=== PATIENT | female | born 1955 | race Caucasian/White ===

== ENCOUNTER 2016-07-09 17:55 | Inpatient (IN) | payer BC, OTHER ==
[~2016-07-09] VITALS: Ht 170.2 cm; Wt 105.8 kg
[~2016-07-09 17:55] MED LIST: ALBU1AER9 INH; ALPR-412 PO; CARV3.12 PO; FURO-85 PO; IPRASOL4 INH; LOSA25TA18 PO; MONT1TAB3 PO; NAPR500T3 PO; OMEP20TA PO; POTA-331 PO
[2016-07-09] MEDS ORDERED: METHYLPREDNISOLONE 125 MG VIAL IV STA (18:11)
[2016-07-09] MEDS ORDERED: ALBUT/IPRATROP 3MG/0.5MG NEB 3 ML VIAL INH ONE (18:15)
--- NOTE | 2016-07-09 18:18 | EMERGENCY ROOM VISIT NOTE ---
History Report prepared by Ketan: Yamilex Farrell Under the Supervision of: Dr. Anuel Gibson M.D. First contact with patient: 18:02 Chief Complaint: SHORTNESS OF BREATH Stated Complaint: TROUBLE BREATHING History of Present Illness The patient is a 61 year old female who presents to the Emergency Room with complaints of worsening shortness of breath with onset one week ago. She rates her discomfort as an 8/10. The patient notes that she has had some difficulty breathing for nearly two months. Since then, the patient has been undergoing treatment. She was recently diagnosed with asthma. Today, the patient took an albuterol treatment; she notes she has a nebulizer. The patient has had chills, a cough, pain and swelling in her legs. The patient also has chest pain, which she describes as "as if someone is sitting on me." She also has some intermittent pain between her shoulder blades. She denies fever, abdominal pain , a history of smoking. Source of History: patient, spouse/significant other Onset: one week ago Position: chest Symptom Intensity: 8/10 Quality: other (shortness of breath) Timing: worsening Associated Symptoms: + chest pain, + chills, + cough, No abdominal pain, No fevers Note: She has pain and swelling in her legs. She also has some intermittent pain between her shoulder blades. Review of Systems See HPI for pertinent positives & negatives. A total of 10 systems reviewed and were otherwise negative. Past Medical & Surgical Medical Problems: (1) Acute respiratory failure (2) Asthma (3) Asthma exacerbation (4) Benign hypertension (5) Bronchitis (6) Cardiomyopathy (7) Cardiomyopathy (8) CHF (congestive heart failure) (9) Community acquired pneumonia (10) Failure of outpatient treatment (11) Gastroesophageal reflux disease (12) Pneumonia (13) Respiratory failure (14) Systolic heart failure Old medical records were reviewed. Nurse's notes were reviewed and I agree with. Family History Cancer Heart disease Hypertension Lung disease Social History Smoking Status: Never Smoker Drug Use: none Marital Status: Housing Status: lives with family Occupation Status: employed Current/Historical Medications Scheduled Carvedilol (Coreg), 3.125 MG PO BID Furosemide (Lasix), 20 MG PO BID Ipratropium-Albuterol (Duoneb), 1 TREATMENT INH Q4H Losartan Potassium (Cozaar), 25 MG PO DAILY Montelukast Sodium (Singulair), 10 MG PO QPM Omeprazole (Omeprazole), 20 MG PO BID Sertraline HCl (Sertraline HCl), 50 MG PO QAM Scheduled PRN Albuterol (Proair Hfa), 2 PUFFS INH QID PRN for SOB/Wheezing Alprazolam (Alprazolam), 0.25 PO BID PRN for Anxiety Naproxen (Naproxen), 500 MG PO Q12 PRN for Pain Allergies Coded Allergies: Formoterol (Verified Allergy, Severe, tongue swells, 07/09/16) Mometasone (Verified Allergy, Severe, tongue swells, 07/09/16) Ketorolac (Unverified Allergy, Intermediate, ITCHING, 07/09/16) Latex1 -Allergic Contact Dermititis (Verified Allergy, Mild, Rash/redness , 07/09/16) Milk Protein Extract (Unverified Allergy, Unknown, unknown, 07/09/16) Physical Exam Vital Signs Date Time Temp Pulse Resp B/P Pulse Ox O2 Delivery O2 Flow Rate FiO2 07/09/16 20:55 91 21 91 07/09/16 20:25 93 26 92 07/09/16 19:55 84 19 91 07/09/16 19:47 85 16 144/94 92 Nasal Cannula 4.0 07/09/16 19:46 144/94 07/09/16 19:25 89 Room Air 07/09/16 19:25 91 20 92 07/09/16 19:11 91 Room Air 07/09/16 18:55 81 15 99 07/09/16 18:36 83 07/09/16 18:29 85 24 94 Nasal Cannula 3.0 07/09/16 17:56 37.3 89 22 187/118 91 Room Air Physical Exam General: Middle aged female, mildly tachypneic. HEENT: Normal cephalic atraumatic. Pupils are equal round and reactive to light. Extraocular movements are intact. Oropharynx is pink with moist mucous membranes. No swelling of the mouth lips or tongue. Neck: Supple with a midline trachea. No meningeal signs or stiffness, no JVD or bruits. No Stridor. Chest: Wheezes bilaterally with moderate movement. Heart: regular rate and rhythm. Abdomen: Soft nontender, nondistended without rebound guarding or rigidity. Extremities: No cyanosis clubbing. Trace pedal edema bilaterally. No calf tenderness or assymetry Spine/Back. Non tender to palpation. No CVA tenderness Skin: Good turgor without rashes. Neurologic exam: Cranial nerves two through 12 are intact. Motor and sensation are intact and symmetrical throughout. Medical Decision & Procedures ER Provider Diagnostic Interpretation: X-ray results as stated below per interpretation by me and the radiologist: Chest x-ray per my interpretation reveals no pneumothorax, failure, or infiltrate. SINGLE VIEW CHEST CLINICAL HISTORY: Atypical chest pain. FINDINGS: An AP, portable, upright chest radiograph is compared to chest x-ray and chest CT dated 07/22/2015. The examination is degraded by portable technique and patient rotation. The cardiomediastinal silhouette is top normal for projection. There is atherosclerotic calcification of the thoracic aorta. Chronic interstitial thickening is unchanged. There is left basilar scarring versus atelectasis, similar to previous. No airspace consolidation is seen typical for pneumonia and there is no pleural effusion. No pneumothorax is seen. The skeletal structures are osteopenic. The bony thorax is grossly intact. IMPRESSION: No acute cardiopulmonary abnormality. Electronically signed by: Guero Singh M.D. 07/09/2016 7:11 PM Dictated Date/Time: 07/09/2016 7:10 PM Laboratory Results 07/09/16 18:20 Red Blood Count 4.76, Mean Corpuscular Volume 84.7, Mean Corpuscular Hemoglobin 29.4, Mean Corpuscular Hemoglobin Concent 34.7, Mean Platelet Volume 10.8, Neutrophils (%) (Auto) 50.4, Lymphocytes (%) (Auto) 26.3, Monocytes (%) (Auto) 7.0, Eosinophils (%) (Auto) 15.7, Basophils (%) (Auto) 0.4, Neutrophils # (Auto ) 4.63, Lymphocytes # (Auto) 2.41, Monocytes # (Auto) 0.64, Eosinophils # (Auto ) 1.44, Basophils # (Auto) 0.04 07/09/16 18:20 Test 07/09/16 18:16 07/09/16 18:20 07/09/16 18:40 Influenza Type A Antigen Neg for Influ A (NEG) Influenza Type B Antigen Neg for Influ B (NEG) White Blood Count 9.18 K/uL (4.8-10.8) Red Blood Count 4.76 M/uL (4.2-5.4) Hemoglobin 14.0 g/dL (12.0-16.0) Hematocrit 40.3 % (37-47) Mean Corpuscular Volume 84.7 fL (80-100) Mean Corpuscular Hemoglobin 29.4 pg (25-34) Mean Corpuscular Hemoglobin Concent 34.7 g/dl (32-36) Platelet Count 265 K/uL (130-400) Mean Platelet Volume 10.8 fL (7.4-10.4) Neutrophils (%) (Auto) 50.4 % Lymphocytes (%) (Auto) 26.3 % Monocytes (%) (Auto) 7.0 % Eosinophils (%) (Auto) 15.7 % Basophils (%) (Auto) 0.4 % Neutrophils # (Auto) 4.63 K/uL (1.4-6.5) Lymphocytes # (Auto) 2.41 K/uL (1.2-3.4) Monocytes # (Auto) 0.64 K/uL (0.11-0.59) Eosinophils # (Auto) 1.44 K/uL (0-0.5) Basophils # (Auto) 0.04 K/uL (0-0.2) RDW Standard Deviation 42.5 fL (36.4-46.3) RDW Coefficient of Variation 13.8 % (11.5-14.5) Immature Granulocyte % (Auto) 0.2 % Immature Granulocyte # (Auto) 0.02 K/uL (0.00-0.02) Anion Gap 12.0 mmol/L (3-11) Est Creatinine Clear Calc Drug Dose 103.3 ml/min Estimated GFR () 102.8 Estimated GFR (Non- 88.7 BUN/Creatinine Ratio 17.2 (10-20) Calcium Level 9.0 mg/dl (8.5-10.1) Total Bilirubin 0.3 mg/dl (0.2-1) Direct Bilirubin < 0.1 mg/dl (0-0.2) Aspartate Amino Transf (AST/SGOT) 15 U/L (15-37) Alanine Aminotransferase (ALT/SGPT) 15 U/L (12-78) Alkaline Phosphatase 102 U/L (45-117) Total Protein 7.2 gm/dl (6.4-8.2) Albumin 3.6 gm/dl (3.4-5.0) Lipase 160 U/L (73-393) Bedside Troponin I 0.000 ng/ml (0-0.045) ET-Jsc-[id number]-Type Natriuretic Peptide 74 pg/ml (0-900) Laboratory studies as stated above per my review. Medications Administered Medications (Trade) Dose Ordered Sig/Db Route Start Time Stop Time Status Last Admin Dose Admin Methylprednisolone Sodium Succinate (Solu-Medrol IV) 125 mg ONE STAT IV 07/09/16 18:11 07/09/16 18:14 DC 07/09/16 18:32 125 MG Albuterol/ Ipratropium (Duoneb) 12 ml ONE ONCE INH 07/09/16 18:15 07/09/16 18:16 DC 07/09/16 18:29 12 ML Ondansetron HCl 4 mg 4 mg STK-MED ONCE .ROUTE 07/09/16 18:34 07/09/16 18:35 DC 07/09/16 18:34 4 MG Azithromycin/ Dextrose (Zithromax IV/D5 250ml) 255 ml @ 125 mls/hr ONE ONCE IV 07/09/16 19:30 07/09/16 21:32 DC 07/09/16 20:20 125 MLS/HR Ceftriaxone Sodium (Rocephin Inj) 1 gm NOW STAT IV 07/09/16 19:32 07/09/16 19:33 DC 07/09/16 20:00 1 GM Carvedilol (Coreg Tab) 3.125 mg BID PO 07/09/16 21:00 08/08/16 20:59 07/09/16 23:02 3.125 MG Montelukast Sodium (Singulair Tab) 10 mg QPM PO 07/09/16 21:00 08/08/16 20:59 07/09/16 23:02 10 MG Pantoprazole Sodium (Protonix Tab) 40 mg BID PO 07/09/16 21:00 08/08/16 20:59 07/09/16 23:02 40 MG Guaifenesin (Mucinex Contr Rel Tab) 600 mg Q12 PO 07/09/16 21:00 08/08/16 20:59 07/09/16 23:02 600 MG ECG Indication: SOB/dyspnea Rate (beats per minute): 82 Rhythm: normal sinus Findings: no acute ischemic change, no ectopy Comparison ECG Date: 07/22/2015 Change: PVCs are now absent when compared to previous. ED Course 1801: Past medical records reviewed. The patient was evaluated in room B3, and a complete history and physical examination were performed. 1810: Solu-Medrol 125 mg IV 1814: Duonb 12 ml INH 183: Zofran 4 mg IV 183: I reevaluated the patient as she has vomited, per nursing staff. There is no evidence of allergic reaction otherwise, no swelling or hives. 1899: I reevaluated the patient; she seems to be doing better. She is still wheezy but less short of breath. She is currently getting her hour-long breathing treatment. 1925: Upon reevaluation, the patient is resting. I discussed the results and treatment plan with the patient. She verbalized agreement of the treatment plan. The patient will be evaluated for further management. 1929: Azithromycin 500 mg/ Dextrose 255 ml @ 125 mls/hr IV 1930: I discussed the case with Dr. Dalton ([facility]) ; he will further evaluate the patient. 1931: Rocephin 1 gm IV Medical Decision Differentials include, but are not limited to; asthma exacerbation, bronchitis, pneumonia, CHF, acute coronary syndrome, arrhythmia, PE. This patient comes in as described above. She's had wheezing and difficulty breathing this midline over several weeks. She has had antibiotics twice as well as steroids as an outpatient. She feels better briefly but then gets worse again. She has audible wheezes on exam. She has mild [id number] increased work of breathing. She is borderline hypoxemic with O2 sat of 91%. She is placed on a equipment monitor phototypesetting and before. IV access established was given Solu-Medrol 125 mg IV as well as albuterol Atrovent nebs. She's had these medications before. Chest x-ray, EKG, and multiple blood testing was obtained including blood cultures and influenza swab. She was reassessed frequently. With the nebs she felt better but still has a fair amount of wheezing and I do not think can go home she still remains mildly hypoxemic. She's failed outpatient therapy. She has nothing to suggest acute coronary syndrome or arrhythmia or CHF or sepsis. Given that she does have bronchitis, she was covered with azithromycin 500 mg IV and Rocephin 1 g IV. I did consult with Dr. Angel who saw her in the ER and will admit her for further treatment and evaluation. Consults Time Called: 1927 Consulting Physician: Dr. Dalton ([facility]) Returned Call: 1930 I discussed the case with Dr. Dalton ([facility]); he will further evaluate the patient. Impression Primary Impression: Asthma with exacerbation Additional Impressions: Hypoxemia Bronchitis Scribe Attestation The scribe's documentation has been prepared under my direction and personally reviewed by me in its entirety. I confirm that the note above accurately reflects all work, treatment, procedures, and medical decision making performed by me. Departure Information Dispostion Being Evaluated By Hospitalist Referrals Rosalva Padilla DO (PCP) Patient Instructions My [facility] Problem Qualifiers Primary Impression: Asthma with exacerbation Asthma severity: moderate persistent Qualified Codes: J45.41 - Moderate persistent asthma with (acute) exacerbation
[2016-07-09 18:29] VITALS: PULSE 85; O2SAT 94
[2016-07-09] MEDS ORDERED: ONDANSETRON INJ 2 MG/ML 2 ML VIAL ONE (18:34)
[2016-07-09] MEDS ORDERED: ZLF/50 PO (18:49)
[2016-07-09] MEDS ORDERED: IPRASOL4 INH (18:49)
[2016-07-09 18:52] LABS: BASO % 0.4 %; BASO ABS # 0.04 K/uL (0-0.2); COMPLETE YES; EOS % 15.7 %; HEMATOCRIT 40.3 % (37-47); IG% 0.2 %; LYMPH % 26.3 %; LYMPH ABS # 2.41 K/uL (1.2-3.4); MEAN CELL VOLUME 84.7 fL (80-100); MEAN CORPUSCULAR HEMOGLOBIN 29.4 pg (25-34); MEAN CORPUSCULAR HGB CONC 34.7 g/dl (32-36); MEAN PLATELET VOLUME 10.8 fL (7.4-10.4); NEUT % 50.4 %; PLATELET COUNT 265 K/uL (130-400); RED BLOOD COUNT 4.76 M/uL (4.2-5.4); WHITE BLOOD COUNT 9.18 K/uL (4.8-10.8)
[2016-07-09] MEDS: CEFTRIAXONE SOD INJ 1 GM ADDVIAL IV STA ×2 (19:00→20:00)
[2016-07-09 19:11] LABS: BLOOD UREA NITROGEN 13 mg/dl (7-18); BUN/CREATININE RATIO 17.2 (10-20); CARBON DIOXIDE 26 mmol/L (21-32); CREATININE 0.74 mg/dl (0.60-1.20); GLUCOSE 97 mg/dl (70-99)
--- NOTE | 2016-07-09 19:13 | DIAGNOSTIC IMAGING REPORT ---
SINGLE VIEW CHEST CLINICAL HISTORY: Atypical chest pain. FINDINGS: An AP, portable, upright chest radiograph is compared to chest x-ray and chest CT dated 07/22/2015. The examination is degraded by portable technique and patient rotation. The cardiomediastinal silhouette is top normal for projection. There is atherosclerotic calcification of the thoracic aorta. Chronic interstitial thickening is unchanged. There is left basilar scarring versus atelectasis, similar to previous. No airspace consolidation is seen typical for pneumonia and there is no pleural effusion. No pneumothorax is seen. The skeletal structures are osteopenic. The bony thorax is grossly intact. IMPRESSION: No acute cardiopulmonary abnormality. Electronically signed by: Guero Singh M.D. 07/09/2016 7:11 PM Dictated Date/Time: 07/09/2016 7:10 PM
[2016-07-09] MEDS ORDERED: AZITHROMYCIN IV 500 MG in DEXTROSE 5% 250ML 250 ML IV ONE (19:30)
[2016-07-09 19:31] LABS: CHLORIDE 106 mmol/L (98-107); POTASSIUM 3.7 mmol/L (3.5-5.1); SODIUM 144 mmol/L (136-145)
[2016-07-09 19:38] LABS: AST/SGOT 15 U/L (15-37)
[2016-07-09 19:40] LABS: ALKALINE PHOSPHATASE 102 U/L (45-117); ALT/SGPT 15 U/L (12-78)
[2016-07-09] MEDS ORDERED: ZOLPIDEM TARTRATE 5 MG TAB PO PRN (21:00)
[2016-07-09] MEDS: FUROSEMIDE 20 MG TAB PO SCH (21:00)
[2016-07-09] MEDS ORDERED: ALPRAZOLAM 0.25 MG TAB PO PRN (21:00)
[2016-07-09] MEDS ORDERED: LEVALBUTEROL/IPRATROPIUM NEB INH SCH (21:00)
[2016-07-09] MEDS ORDERED: NITROGLYCERIN 0.4 MG SL PER TAB CHARGE SL PRN (21:00)
[2016-07-09] MEDS ORDERED: IPRATROPIUM BROMIDE NEB SOLN 0.02% 2.5 ML VIAL INH PRN (21:45)
[2016-07-09] MEDS ORDERED: LEVALBUTEROL 1.25MG/0.5ML NEB INH PRN (21:45)
[2016-07-09 22:01] VITALS: BP 134/82; PULSE 93; TEMP 37; O2SAT 93; Ht 170.2 cm; Wt 105.8 kg
[2016-07-09] MEDS: PANTOprazole SOD 40 MG TAB PO SCH (23:02)
[2016-07-09] MEDS: METHYLPREDNISOLONE IV 60 MG in SYRINGE 0 ML IV SCH (23:02)
[2016-07-09] MEDS: MONTELUKAST SOD 10 MG TAB PO SCH (23:02)
[2016-07-09] MEDS: GUAIFENESIN 600 MG TABCR PO SCH (23:02)
[2016-07-09] MEDS: CARVEDILOL 3.125 MG TAB PO SCH (23:02)
[2016-07-10] VITALS (12 sets, daily range): BP systolic 119–150; BP diastolic 26–89; PULSE 81–95; TEMP 36.3–37.2; O2SAT 91–99
[2016-07-10] MEDS: LEVALBUTEROL 1.25MG/0.5ML NEB INH SCH ×4 (01:46→20:15)
[2016-07-10] MEDS: IPRATROPIUM BROMIDE NEB SOLN 0.02% 2.5 ML VIAL INH SCH ×4 (01:46→20:15)
--- NOTE | 2016-07-10 04:42 | History and Physical ---
History & Physical Date & Time of Service: Jul 10, 2016 at 04:34 Chief Complaint: Asthma With Exacerbation, Primary Care Physician: Rosalva Padilla DO History of Present Illness Source: patient The patient is a 61-year-old female who presents to the emergency room with complaint of worsening shortness of breath, chest pain, interscapular pain, cough, chills, pain and swelling in legs that began about one week prior to arrival. She has been undergoing treatment for breathing difficulties for nearly the past 2 months, and was recently diagnosed with asthma. Past Medical/Surgical History Medical Problems: (1) Acute respiratory failure Status: Resolved (2) Asthma Status: Chronic (3) Asthma exacerbation Status: Chronic (4) Benign hypertension Status: Chronic (5) Cardiomyopathy Status: Chronic (6) Cardiomyopathy Status: Chronic (7) CHF (congestive heart failure) Status: Chronic (8) Community acquired pneumonia Status: Resolved (9) Gastroesophageal reflux disease Status: Chronic (10) Pneumonia Status: Resolved (11) Respiratory failure Status: Resolved Family History Cancer Heart disease Hypertension Lung disease Social History Smoking Status: Never Smoker Smokeless Tobacco Use: No Alcohol Use: none Drug Use: none Marital Status: Housing status: lives with family Occupational Status: employed Immunizations History of Influenza Vaccine: Yes History of Tetanus Vaccine?: Yes History of Pneumococcal: Yes Pneumococcal Date: Oct 21, 2012 History of Hepatitis B Vaccine: No Multi-Drug Resistant Organisms History of MDRO: No Allergies Coded Allergies: Formoterol (Verified Allergy, Severe, tongue swells, 07/09/16) Mometasone (Verified Allergy, Severe, tongue swells, 07/09/16) Ketorolac (Unverified Allergy, Intermediate, ITCHING, 07/09/16) Latex1 -Allergic Contact Dermititis (Verified Allergy, Mild, Rash/redness , 07/09/16) Milk Protein Extract (Unverified Allergy, Unknown, unknown, 07/09/16) Home Medications Scheduled Carvedilol (Coreg), 3.125 MG PO BID Furosemide (Lasix), 20 MG PO BID Ipratropium-Albuterol (Duoneb), 1 TREATMENT INH Q4H Losartan Potassium (Cozaar), 25 MG PO DAILY Montelukast Sodium (Singulair), 10 MG PO QPM Omeprazole (Omeprazole), 20 MG PO BID Sertraline HCl (Sertraline HCl), 50 MG PO QAM Scheduled PRN Albuterol (Proair Hfa), 2 PUFFS INH QID PRN for SOB/Wheezing Alprazolam (Alprazolam), 0.25 PO BID PRN for Anxiety Naproxen (Naproxen), 500 MG PO Q12 PRN for Pain Review of Systems The patient denies vision change, hearing change, sore throat, fevers, chills, sweats, weight change, fatigue, nausea, vomiting, abdominal pain, pelvic pain, blood in urine or stool, dysuria, urinary frequency or urgency, lightheadedness , dizziness, headache, memory loss, rash, abnormal bruising or bleeding, imbalance, focal weakness, numbness or tingling in arms or legs, arthralgias or myalgias, night sweats, or allergy symptoms. The review of systems is otherwise negative other than for that already noted above, and at least 10 systems have been reviewed. Physical Exam Vital Signs Date Time Temp Pulse Resp B/P Pulse Ox O2 Delivery O2 Flow Rate FiO2 07/10/16 04:00 Nasal Cannula 4.0 Humidified Oxygen 07/10/16 03:20 36.3 92 16 122/79 92 Nasal Cannula 4.0 07/10/16 01:46 91 20 94 Nasal Cannula 4.0 07/10/16 00:05 36.8 81 18 120/26 94 Room Air 07/09/16 23:59 Nasal Cannula 4.0 Humidified Oxygen 07/09/16 22:01 37.0 93 22 134/82 93 Nasal Cannula 4.0 07/09/16 21:21 101 20 143/115 93 Nasal Cannula 4.0 07/09/16 20:55 91 21 91 07/09/16 20:25 93 26 92 07/09/16 19:55 84 19 91 07/09/16 19:47 85 16 144/94 92 Nasal Cannula 4.0 07/09/16 19:46 144/94 07/09/16 19:25 89 Room Air 07/09/16 19:25 91 20 92 07/09/16 19:11 91 Room Air 07/09/16 18:55 81 15 99 07/09/16 18:36 83 07/09/16 18:29 85 24 94 Nasal Cannula 3.0 07/09/16 17:56 37.3 89 22 187/118 91 Room Air The patient is awake, well-developed and adequately nourished, alert and oriented 3, normocephalic and atraumatic, lying in bed and in mild respiratory acute distress. HEENT--PERRL, EOMI, mucous membranes moist, and oropharynx normal. Neck--supple, no JVD or bruits, thyroid normal, trachea midline, no adenopathy. Heart--normal S1 and S2, no extra beats, no murmurs, rubs or gallops. Lungs--wheezes and rhonchi bilaterally, mild respiratory distress, no accessory muscle use. Abdomen--normal bowel sounds and soft, nontender and nondistended, no hernias or masses, no organomegaly. Extremities--no cyanosis, clubbing or edema. There are good distal pulses b/l. Dermatologic--normal skin turgor, normal color, warm and dry, no abnormal lymph nodes, no rash. Neurologic--cranial nerves II through XII grossly intact, motor and sensory examination normal. Rheumatologic--normal range of motion, nontender, muscles and joints. Psychiatric--normal affect. Diagnostics Laboratory Results Results Past 24 Hours Test 07/09/16 18:16 07/09/16 18:20 07/09/16 18:40 Range/Units Influenza Type A Antigen Neg for Influ A NEG Influenza Type B Antigen Neg for Influ B NEG White Blood Count 9.18 4.8-10.8 K/uL Red Blood Count 4.76 4.2-5.4 M/uL Hemoglobin 14.0 12.0-16.0 g/dL Hematocrit 40.3 37-47 % Mean Corpuscular Volume 84.7 80-100 fL Mean Corpuscular Hemoglobin 29.4 25-34 pg Mean Corpuscular Hemoglobin Concent 34.7 32-36 g/dl Platelet Count 265 130-400 K/uL Mean Platelet Volume 10.8 7.4-10.4 fL Neutrophils (%) (Auto) 50.4 % Lymphocytes (%) (Auto) 26.3 % Monocytes (%) (Auto) 7.0 % Eosinophils (%) (Auto) 15.7 % Basophils (%) (Auto) 0.4 % Neutrophils # (Auto) 4.63 1.4-6.5 K/uL Lymphocytes # (Auto) 2.41 1.2-3.4 K/uL Monocytes # (Auto) 0.64 0.11-0.59 K/uL Eosinophils # (Auto) 1.44 0-0.5 K/uL Basophils # (Auto) 0.04 0-0.2 K/uL RDW Standard Deviation 42.5 36.4-46.3 fL RDW Coefficient of Variation 13.8 11.5-14.5 % Immature Granulocyte % (Auto) 0.2 % Immature Granulocyte # (Auto) 0.02 0.00-0.02 K/uL Sodium Level 144 136-145 mmol/L Potassium Level 3.7 3.5-5.1 mmol/L Chloride Level 106 98-107 mmol/L Carbon Dioxide Level 26 21-32 mmol/L Anion Gap 12.0 3-11 mmol/L Blood Urea Nitrogen 13 7-18 mg/dl Creatinine 0.74 0.60-1.20 mg/dl Est Creatinine Clear Calc Drug Dose 103.3 ml/min Estimated GFR () 102.8 Estimated GFR (Non- 88.7 BUN/Creatinine Ratio 17.2 10-20 Random Glucose 97 70-99 mg/dl Calcium Level 9.0 8.5-10.1 mg/dl Total Bilirubin 0.3 0.2-1 mg/dl Direct Bilirubin < 0.1 0-0.2 mg/dl Aspartate Amino Transf (AST/SGOT) 15 15-37 U/L Alanine Aminotransferase (ALT/SGPT) 15 12-78 U/L Alkaline Phosphatase 102 45-117 U/L Total Protein 7.2 6.4-8.2 gm/dl Albumin 3.6 3.4-5.0 gm/dl Lipase 160 73-393 U/L Bedside Troponin I 0.000 0-0.045 ng/ml GH-Bqq-T-Type Natriuretic Peptide 74 0-900 pg/ml Microbiology Results 07/09/16 Blood Culture, Received Pending 07/09/16 Blood Culture, Received Pending Diagnostic Radiology Patient Name: CHARLIE MORA Unit Number: [id number] Dictated: 07/09/161909 Transcribed: 07/09/161909 EV Printed Date/Time: [~ rep prt dt]/[~ rep prt tm] [~ rep ct labl] - [~ rep ct ivnm] [facility] [place] [address] Dictated: 07/09/161909 Transcribed: 07/09/161909 EV Printed Date/Time: [~ rep prt dt]/[~ rep prt tm] [~ rep ct labl] - [~ rep ct ivnm] [~ rep ct add3]] SINGLE VIEW CHEST CLINICAL HISTORY: Atypical chest pain. FINDINGS: An AP, portable, upright chest radiograph is compared to chest x-ray and chest CT dated 07/22/2015. The examination is degraded by portable technique and patient rotation. The cardiomediastinal silhouette is top normal for projection. There is atherosclerotic calcification of the thoracic aorta. Chronic interstitial thickening is unchanged. There is left basilar scarring versus atelectasis, similar to previous. No airspace consolidation is seen typical for pneumonia and there is no pleural effusion. No pneumothorax is seen. The skeletal structures are osteopenic. The bony thorax is grossly intact. IMPRESSION: No acute cardiopulmonary abnormality. Electronically signed by: Guero Singh M.D. 07/09/2016 7:11 PM Dictated Date/Time: 07/09/2016 7:10 PM The status of this report is Signed. Draft = Not yet reviewed or approved by Radiologist. Signed = Reviewed and approved by Radiologist. <AttendingPhy></AttendingPhy> <FamilyPhy>Rosalva Padilla, DO</FamilyPhy> < PrimaryPhy>Rosalva Padilla, DO</PrimaryPhy> <UnitNumber>[id number]</ UnitNumber> <VisitNumber>[id number]</VisitNumber> <PatientName>CASEYPATIENCECHARLIE Barraza </PatientName> <DateOfBirth>1955</DateOfBirth> <Location>[facility]</Location> <ServiceDate>07/09/16</ServiceDate> <MNE>MARGI</MNE> <OrderingPhy>Anuel Gibson M.D.</OrderingPhy> <OrderingPhyMNE>f rep ord dr pina</OrderingPhyMNE> < DictatingPhyMNE>f rep dict dr pina</DictatingPhyMNE> <CCListMNE>f rep ct benjie</ CCListMNE> <AdmittingPhyMNE>f pt admit dr pina</AdmittingPhyMNE> <AttendingPhyMNE >f pt attend dr pina</AttendingPhyMNE> <ConsultingPhyMNE>f pt consult dr pina</ConsultingPhyMNE> <FamilyPhyMNE>f pt fam dr pina</FamilyPhyMNE> <OtherPhyMNE>f pt other dr pina</OtherPhyMNE> < PrimaryPhyMNE>f pt prim care dr pina</PrimaryPhyMNE> <ReferringPhyMNE>f pt referring dr pina</ReferringPhyMNE> EKG EKG shows normal sinus rhythm at 82 bpm, there are no acute ST-T changes. Impression Assessment and Plan Asthmatic bronchitis, with failure of outpatient treatment of steroids and antibiotics--the patient will be admitted to the telemetry unit for close oxygen monitoring. Will place on ceftriaxone 1 g IV daily, azithromycin 500 mg IV every 24 hours, guaifenesin extended release 600 mg by mouth twice a day, Xopenex with Atrovent nebulizer to use every 6 hours all awake and every 2 hours when necessary and Solu-Medrol 60 mg IV every 6 hours. Continue Singulair 10 mg by mouth every afternoon, and hold do nebs every 4 hours Cardiomyopathy/hypertension/CHF--continue carvedilol 3.125 mg by mouth twice a day, furosemide 20 mg by mouth twice a day, and losartan potassium 25 mg by mouth daily. GERD--change omeprazole 20 mg by mouth twice a day to pantoprazole 40 mg by mouth twice a day. Depression/anxiety--continue sertraline 50 mg by mouth every morning, and alprazolam 0.25 mg by mouth twice a day when necessary. Level of Care Telemetry Advanced Directives Existing Advance Directive: No Existing Living Will: No Existing Power of Die Repairer Forging: No Resuscitation Status FULL RESUSCITATION VTE Prophylaxis VTE Risk Assessment Done? Y/N: Yes Risk Level: Moderate Given or contraindicated: SCD's Social Service Consult None Apply
[2016-07-10] MEDS: METHYLPREDNISOLONE IV 60 MG in SYRINGE 0 ML IV SCH (05:30)
[2016-07-10] MEDS: LOSARTAN POTASSIUM 25 MG TAB PO SCH (07:25)
[2016-07-10] MEDS: SERTRALINE HCL 50 MG TAB PO SCH (07:25)
[2016-07-10] MEDS: PANTOprazole SOD 40 MG TAB PO SCH ×2 (07:26→19:57)
[2016-07-10] MEDS: GUAIFENESIN 600 MG TABCR PO SCH ×2 (07:26→19:58)
[2016-07-10] MEDS: CARVEDILOL 3.125 MG TAB PO SCH ×2 (07:26→19:57)
[2016-07-10] MEDS: FUROSEMIDE 20 MG TAB PO SCH ×2 (07:26→16:25)
[2016-07-10] MEDS: ACETAMINOPHEN 325 MG TAB PO PRN ×2 (09:49→19:57)
--- NOTE | 2016-07-10 11:44 | Progress Note ---
Subjective Date of Service: Jul 10, 2016. Subjective pt states she feels much improved with her breathing still with cough but unable to produce. has been feeling ill since 05/12 Problem List Medical Problems: (1) Asthma with exacerbation Status: Acute (2) Bronchiectasis Status: Acute (3) Chest pain Status: Acute (4) Diarrhea Status: Acute (5) Hypoxemia Status: Acute Review of Systems Constitutional: No chills, No fever, No weakness Respiratory: + cough, + dyspnea at rest, + dyspnea on exertion, + shortness of breath, No sputum Cardiac: No chest pain, No edema Abdomen: No diarrhea, No nausea, No pain, No vomiting Female : No dysuria, No urinary frequency Objective Vital Signs Date Time Temp Pulse Resp B/P Pulse Ox O2 Delivery O2 Flow Rate FiO2 07/10/16 07:22 36.3 83 20 150/80 91 Nasal Cannula 2.0 07/10/16 07:05 92 16 93 Nasal Cannula 2.0 07/10/16 06:14 91 Nasal Cannula 2.0 Humidified Oxygen 07/10/16 04:00 Nasal Cannula 4.0 Humidified Oxygen 07/10/16 03:20 36.3 92 16 122/79 92 Nasal Cannula 4.0 07/10/16 01:46 91 20 94 Nasal Cannula 4.0 07/10/16 00:05 36.8 81 18 120/26 94 Room Air 07/09/16 23:59 Nasal Cannula 4.0 Humidified Oxygen 07/09/16 22:01 37.0 93 22 134/82 93 Nasal Cannula 4.0 07/09/16 21:21 101 20 143/115 93 Nasal Cannula 4.0 07/09/16 20:55 91 21 91 07/09/16 20:25 93 26 92 07/09/16 19:55 84 19 91 07/09/16 19:47 85 16 144/94 92 Nasal Cannula 4.0 07/09/16 19:46 144/94 07/09/16 19:25 89 Room Air 07/09/16 19:25 91 20 92 07/09/16 19:11 91 Room Air 07/09/16 18:55 81 15 99 07/09/16 18:36 83 07/09/16 18:29 85 24 94 Nasal Cannula 3.0 07/09/16 17:56 37.3 89 22 187/118 91 Room Air Physical Exam General Appearance: WD/WN, + mild distress Eyes: PERRL, EOMI Neck: supple, no JVD Respiratory/Chest: chest non-tender, + rhonchi, + pertinent finding ( prolongued expiratory phase) Cardiovascular: regular rate, rhythm Abdomen: normal bowel sounds, non tender, soft Extremities: no pedal edema, no calf tenderness Laboratory Results Last 24 Hours Test 07/09/16 18:16 07/09/16 18:20 07/09/16 18:40 Influenza Type A Antigen Neg for Influ A Influenza Type B Antigen Neg for Influ B White Blood Count 9.18 K/uL Red Blood Count 4.76 M/uL Hemoglobin 14.0 g/dL Hematocrit 40.3 % Mean Corpuscular Volume 84.7 fL Mean Corpuscular Hemoglobin 29.4 pg Mean Corpuscular Hemoglobin Concent 34.7 g/dl Platelet Count 265 K/uL Mean Platelet Volume 10.8 fL Neutrophils (%) (Auto) 50.4 % Lymphocytes (%) (Auto) 26.3 % Monocytes (%) (Auto) 7.0 % Eosinophils (%) (Auto) 15.7 % Basophils (%) (Auto) 0.4 % Neutrophils # (Auto) 4.63 K/uL Lymphocytes # (Auto) 2.41 K/uL Monocytes # (Auto) 0.64 K/uL Eosinophils # (Auto) 1.44 K/uL Basophils # (Auto) 0.04 K/uL RDW Standard Deviation 42.5 fL RDW Coefficient of Variation 13.8 % Immature Granulocyte % (Auto) 0.2 % Immature Granulocyte # (Auto) 0.02 K/uL Sodium Level 144 mmol/L Potassium Level 3.7 mmol/L Chloride Level 106 mmol/L Carbon Dioxide Level 26 mmol/L Anion Gap 12.0 mmol/L Blood Urea Nitrogen 13 mg/dl Creatinine 0.74 mg/dl Est Creatinine Clear Calc Drug Dose 103.3 ml/min Estimated GFR () 102.8 Estimated GFR (Non- 88.7 BUN/Creatinine Ratio 17.2 Random Glucose 97 mg/dl Calcium Level 9.0 mg/dl Total Bilirubin 0.3 mg/dl Direct Bilirubin < 0.1 mg/dl Aspartate Amino Transf (AST/SGOT) 15 U/L Alanine Aminotransferase (ALT/SGPT) 15 U/L Alkaline Phosphatase 102 U/L Total Protein 7.2 gm/dl Albumin 3.6 gm/dl Lipase 160 U/L Bedside Troponin I 0.000 ng/ml [id number] Natriuretic Peptide 74 pg/ml Assessment and Plan 61 F presentes with shortness of breath failing outpt treatment Asthmatic bronchitis,Solu-Medrol 40 mg IV every 8 hours, ceftriaxone 1 g IV daily, azithromycin 500 mg IV every 24 hours, guaifenesin extended release 600 mg by mouth twice a day, Xopenex with Atrovent nebulizer to use every 6 hours all awake and every 2 hours when necessary and . Continue Singulair 10 mg by mouth every afternoon. has allergy to formoterol, will add flutter valve /hypertension/CHF-- carvedilol 3.125 mg by mouth twice a day, furosemide 20 mg by mouth twice a day, and losartan potassium 25 mg by mouth daily, will check office records last echo 2013 in [facility] showed preserved EF GERD--change omeprazole 20 mg by mouth twice a day to pantoprazole 40 mg by mouth twice a day. Depression/anxiety--continue sertraline 50 mg by mouth every morning, and alprazolam 0.25 mg when necessary.
[2016-07-10] MEDS ORDERED: ARFORMOTEROL TART 15MCG/2ML VIAL INH SCH (11:45)
[2016-07-10] MEDS: METHYLPREDNISOLONE IV 40 MG in SYRINGE 0 ML IV SCH ×2 (12:36→19:58)
[2016-07-10] MEDS ORDERED: METHYLPREDNISOLONE IV 40 MG in SYRINGE 0 ML IV SCH (14:00)
[2016-07-10] MEDS: CEFTRIAXONE SOD INJ 1 GM in DEXTROSE 5% ADD-VANTAGE 50ML 50 ML IV SCH (17:58)
[2016-07-10] MEDS: AZITHROMYCIN IV 500 MG in DEXTROSE 5% 250ML 250 ML IV SCH (19:58)
[2016-07-10] MEDS: MONTELUKAST SOD 10 MG TAB PO SCH (19:58)
[2016-07-11] VITALS (9 sets, daily range): BP systolic 122–154; BP diastolic 79–97; PULSE 76–94; TEMP 36.5–37; O2SAT 91–95
[2016-07-11] MEDS: IPRATROPIUM BROMIDE NEB SOLN 0.02% 2.5 ML VIAL INH SCH ×2 (02:25→07:16)
[2016-07-11] MEDS: LEVALBUTEROL 1.25MG/0.5ML NEB INH SCH ×2 (02:25→07:16)
[2016-07-11] MEDS: ACETAMINOPHEN 325 MG TAB PO PRN ×2 (04:01→11:07)
[2016-07-11] MEDS: METHYLPREDNISOLONE IV 40 MG in SYRINGE 0 ML IV SCH ×3 (04:01→19:30)
[2016-07-11] MEDS: FUROSEMIDE 20 MG TAB PO SCH ×2 (07:42→17:15)
[2016-07-11] MEDS: PANTOprazole SOD 40 MG TAB PO SCH ×2 (07:42→19:30)
[2016-07-11] MEDS: LOSARTAN POTASSIUM 25 MG TAB PO SCH (07:43)
[2016-07-11] MEDS: CARVEDILOL 3.125 MG TAB PO SCH ×2 (07:43→19:31)
[2016-07-11] MEDS: SERTRALINE HCL 50 MG TAB PO SCH ×2 (07:44→19:30)
[2016-07-11] MEDS: GUAIFENESIN 600 MG TABCR PO SCH ×2 (07:44→19:30)
[2016-07-11] MEDS ORDERED: IPRATROPIUM BROMIDE/ALBUTEROL respimat INH INH PRN (08:30)
--- NOTE | 2016-07-11 10:35 | Progress Note ---
Subjective Date of Service: Jul 11, 2016. Subjective pt is somewhat improved but still sob with minor exertion, has headaches from levalbuterol, will stop Problem List Medical Problems: (1) Asthma with exacerbation Status: Acute (2) Bronchiectasis Status: Acute (3) Chest pain Status: Acute (4) Diarrhea Status: Acute (5) Hypoxemia Status: Acute Review of Systems Constitutional: No chills, No fever Eyes: No eye pain, No worsening of vision Respiratory: + cough, + dyspnea at rest, + dyspnea on exertion, + shortness of breath, No sputum Cardiac: No chest pain, No edema Abdomen: No nausea, No pain Female : No dysuria, No urinary frequency Psychiatric: No anhedonism, No depression symptoms Objective Vital Signs Date Time Temp Pulse Resp B/P Pulse Ox O2 Delivery O2 Flow Rate FiO2 07/11/16 08:00 Nasal Cannula 2.0 Humidified Oxygen 07/11/16 07:36 36.7 90 22 134/85 93 Nasal Cannula 2.0 Humidified Oxygen 07/11/16 07:17 79 18 95 Nasal Cannula 3.0 07/11/16 04:00 Nasal Cannula 3.0 07/11/16 03:51 36.7 91 18 135/83 93 2.0 07/11/16 02:25 76 18 94 Nasal Cannula 3.0 07/10/16 23:59 Nasal Cannula 3.0 07/10/16 23:56 36.8 91 18 119/79 94 2.0 07/10/16 20:15 93 18 94 Nasal Cannula 3.0 07/10/16 20:00 Nasal Cannula 3.0 07/10/16 19:40 36.7 92 20 149/68 99 Nasal Cannula 3.0 07/10/16 16:00 Nasal Cannula 2.0 07/10/16 15:34 36.9 94 20 133/76 92 Nasal Cannula 3.0 07/10/16 14:44 92 16 95 Nasal Cannula 3.0 07/10/16 12:00 Nasal Cannula 2.0 07/10/16 11:19 37.2 95 20 142/89 91 Nasal Cannula 3.0 Physical Exam General Appearance: WD/WN, + mild distress Neck: supple, no JVD Respiratory/Chest: + respiratory distress, + decreased breath sounds, + rhonchi Cardiovascular: regular rate, rhythm, no murmur Abdomen: normal bowel sounds, non tender, soft Extremities: no pedal edema, no calf tenderness Neurologic/Psychiatric: alert, oriented x 3 Laboratory Results Last 24 Hours Test 07/11/16 06:02 Thyroid Stimulating Hormone (TSH) 0.475 uIu/ml Assessment and Plan 61 F presents with shortness of breath failing outpt treatment for Asthma exacerbation with bronchitis Asthmatic bronchitis, taper to oral steroids, ceftriaxone 1 g IV daily, azithromycin 500 mg IV every 24 hours, guaifenesin extended release 600 mg by mouth twice a day, start combivent respimat, Continue Singulair 10 mg by mouth every afternoon. has allergy to formoterol, will add flutter valve hypertension/CHF-- carvedilol 3.125 mg by mouth twice a day, furosemide 20 mg by mouth twice a day, and losartan potassium 25 mg by mouth daily, will check office records last echo 2013 in [facility] showed preserved EF GERD--change omeprazole 20 mg by mouth twice a day to pantoprazole 40 mg by mouth twice a day. Depression/anxiety--continue sertraline 50 mg by mouth every morning, and alprazolam 0.25 mg when necessary.
[2016-07-11] MEDS: IPRATROPIUM BROMIDE/ALBUTEROL respimat INH INH SCH ×3 (13:00→19:30)
[2016-07-11] MEDS: CEFTRIAXONE SOD INJ 1 GM in DEXTROSE 5% ADD-VANTAGE 50ML 50 ML IV SCH (18:58)
[2016-07-11] MEDS: MONTELUKAST SOD 10 MG TAB PO SCH (19:30)
[2016-07-11] MEDS: AZITHROMYCIN IV 500 MG in DEXTROSE 5% 250ML 250 ML IV SCH (20:50)
[2016-07-12] MEDS: METHYLPREDNISOLONE IV 40 MG in SYRINGE 0 ML IV SCH ×4 (04:48→23:50)
[2016-07-12 06:46] LABS: HEMATOCRIT 37.9 % (37-47); WHITE BLOOD COUNT 14.21 K/uL (4.8-10.8)
[2016-07-12 06:47] LABS: MEAN CELL VOLUME 86.1 fL (80-100); MEAN CORPUSCULAR HEMOGLOBIN 28.4 pg (25-34); MEAN PLATELET VOLUME 10.9 fL (7.4-10.4); PLATELET COUNT 259 K/uL (130-400)
[2016-07-12 07:12] LABS: CALCIUM 8.4 mg/dl (8.5-10.1); CREATININE 0.75 mg/dl (0.60-1.20); POTASSIUM 3.7 mmol/L (3.5-5.1)
[2016-07-12 07:37] VITALS: BP 152/93; PULSE 68; TEMP 36.6; O2SAT 94
[2016-07-12] MEDS: IPRATROPIUM BROMIDE/ALBUTEROL respimat INH INH SCH ×4 (07:59→20:45)
[2016-07-12] MEDS: FUROSEMIDE 20 MG TAB PO SCH ×2 (07:59→17:10)
[2016-07-12 08:00] VITALS: O2SAT 94
[2016-07-12] MEDS: LOSARTAN POTASSIUM 25 MG TAB PO SCH (08:00)
[2016-07-12] MEDS: CARVEDILOL 3.125 MG TAB PO SCH ×2 (08:00→20:46)
[2016-07-12] MEDS: PANTOprazole SOD 40 MG TAB PO SCH ×2 (08:00→20:48)
[2016-07-12] MEDS: GUAIFENESIN 600 MG TABCR PO SCH ×2 (08:01→20:47)
[2016-07-12] MEDS: POLYETHYLENE (MIRALAX) 17 GM PACK PO SCH ×2 (09:00→20:47)
[2016-07-12 10:21] LABS: PROTHROMBIN TIME (PATIENT) 11.1 SECONDS (9.0-12.0)
[2016-07-12] MEDS: ENOXAPARIN 40 MG/0.4 ML SYR SQ SCH (12:56)
[2016-07-12] MEDS ORDERED: BUTALBITAL/ACETAMIN/CAFFEINE TAB PO ONE (14:15)
--- NOTE | 2016-07-12 14:36 | Hospitalist Progress Note ---
Hospitalist Progress Note Date of Service Jul 12, 2016. (Kateryna Zelaya ., PA-C) Subjective Pt evaluation today including: conversation w/ patient, physical exam, chart review, lab review, review of inpatient medication list Voiding: no voiding problems, no incontinence Patient states she is feeling OK. She has been dealing with "breathing difficulties" on and off since . She saw Dr. Pickens on Jun 18 and diagnosed with asthma. No history of smoking. She has been on and off antibiotics since with no improvement in her symptoms. +anxiety/ jitters. Patient states she cannot tolerate Dulera- she got extreme headaches and felt very jittery. Patient was started on Combivent on 07/11 and tolerated it well yesterday. This morning when she woke up, she felt anxious and jittery again. She is concerned it may be the Combivent vs. anxiety. After receiving her Zoloft, she was beginning to feel better. Reassessed ~2 hrs later, anxiety/ jitters improved. She agreed to continue Combivent and monitor s/s. +headache Patient denies any fever, chills, sweats, lightheadedness, dizziness, vision changes, CP, palpitations, edema, cough, abdominal pain, nausea, vomiting, diarrhea, urinary symptoms, melena, numbness/tingling, weakness, muscle/joint pain, depression, active bleeding, or new skin discoloration/changes. (Kateryna Zelaya ., PA-C) Medications Current Inpatient Medications Medications (Trade) Dose Ordered Sig/Db Route Start Time Stop Time Status Last Admin Dose Admin Acetaminophen (Tylenol Tab) 650 mg Q4H PRN PO 07/09/16 21:00 08/08/16 20:59 07/11/16 11:07 650 MG Zolpidem Tartrate (Ambien Tab) 5 mg HSZ PRN PO 07/09/16 21:00 08/08/16 20:59 Nitroglycerin (Nitrostat Tab) 0.4 mg UD PRN SL 07/09/16 21:00 08/08/16 20:59 Carvedilol (Coreg Tab) 3.125 mg BID PO 07/09/16 21:00 08/08/16 20:59 07/12/16 08:00 3.125 MG Furosemide (Lasix tab) 20 mg BID17 PO 07/09/16 21:00 08/08/16 20:59 07/12/16 07:59 20 MG Losartan Potassium (coZAAR TAB) 25 mg DAILY PO 07/10/16 09:00 08/09/16 08:59 07/12/16 08:00 25 MG Montelukast Sodium (Singulair Tab) 10 mg QPM PO 07/09/16 21:00 08/08/16 20:59 07/11/16 19:30 10 MG Sertraline HCl (Zoloft Tab) 50 mg QAM PO 07/10/16 09:00 08/09/16 08:59 07/11/16 19:30 50 MG Pantoprazole Sodium (Protonix Tab) 40 mg BID PO 07/09/16 21:00 08/08/16 20:59 07/12/16 08:00 40 MG Guaifenesin (Mucinex Contr Rel Tab) 600 mg Q12 PO 07/09/16 21:00 08/08/16 20:59 07/12/16 08:01 600 MG Albuterol/ Ipratropium (Combivent Respimat Inh) 1 puffs QID INH 07/11/16 13:00 08/10/16 12:59 07/12/16 12:55 1 PUFFS Albuterol/ Ipratropium (Combivent Respimat Inh) 1 puffs Q2H PRN INH 07/11/16 08:30 08/10/16 08:29 Enoxaparin Sodium (Lovenox Inj) 40 mg QAM SQ 07/12/16 09:00 08/11/16 08:59 07/12/16 12:56 40 MG Polyethylene 17 gm 17 gm BID PO 07/12/16 09:00 08/11/16 08:59 Methylprednisolone Sodium Succinate/ Syringe (Solu-Medrol IV/ Syringe) 0.64 ml @ 1.5 mls/min Q6H IV 07/12/16 18:00 08/11/16 17:59 Alprazolam (Xanax Tab) 0.25 mg BID PO 07/12/16 21:00 08/11/16 20:59 Acetaminophen/ Butalbital/ Caffeine (Fioricet Tab) 1 tab NOW ONCE PO 07/12/16 14:15 07/12/16 14:16 Acetaminophen/ Butalbital/ Caffeine (Fioricet Tab) 1 tab Q4H PRN PO 07/12/16 18:15 08/11/16 18:14 (Kateryna Zelaya ., LC-C) Objective Vital Signs Date Time Temp Pulse Resp B/P Pulse Ox O2 Delivery O2 Flow Rate FiO2 07/12/16 08:00 94 Nasal Cannula 2.0 Humidified Oxygen 07/12/16 07:37 36.6 68 18 152/93 94 07/12/16 00:00 Nasal Cannula 2.0 Humidified Oxygen 07/11/16 23:31 36.5 81 20 142/89 94 Nasal Cannula 2.0 07/11/16 19:30 79 148/79 07/11/16 19:30 Nasal Cannula 2.0 Humidified Oxygen 07/11/16 16:00 Nasal Cannula 2.0 Humidified Oxygen 07/11/16 14:51 36.8 86 22 154/97 93 Nasal Cannula 2.0 (Kateryna Zelaya ., PA-C) Physical Exam General Appearance: no apparent distress, + obese Eyes: normal inspection, PERRL ENT: hearing grossly normal Neck: supple Respiratory/Chest: no respiratory distress, no accessory muscle use, + decreased breath sounds, + wheezing (throughout ) Cardiovascular: regular rate, rhythm, no edema Abdomen: normal bowel sounds, non tender, soft Extremities: no pedal edema, no calf tenderness Neurologic/Psychiatric: alert, normal mood/affect, oriented x 3 Skin: normal color, warm/dry, no rash (Kateryna Zelaya ., PA-C) Laboratory Results Last 24 Hours Test 07/12/16 06:34 07/12/16 09:44 07/12/16 11:26 White Blood Count 14.21 K/uL Red Blood Count 4.40 M/uL Hemoglobin 12.5 g/dL Hematocrit 37.9 % Mean Corpuscular Volume 86.1 fL Mean Corpuscular Hemoglobin 28.4 pg Mean Corpuscular Hemoglobin Concent 33.0 g/dl RDW Standard Deviation 44.0 fL RDW Coefficient of Variation 14.1 % Platelet Count 259 K/uL Mean Platelet Volume 10.9 fL Sodium Level 146 mmol/L Potassium Level 3.7 mmol/L Chloride Level 108 mmol/L Carbon Dioxide Level 29 mmol/L Anion Gap 9.0 mmol/L Blood Urea Nitrogen 21 mg/dl Creatinine 0.75 mg/dl Est Creatinine Clear Calc Drug Dose 101.1 ml/min Estimated GFR () 101.1 Estimated GFR (Non- 87.2 BUN/Creatinine Ratio 28.0 Random Glucose 144 mg/dl Calcium Level 8.4 mg/dl Prothrombin Time 11.1 SECONDS Prothromb Time International Ratio 1.0 Hepatitis C Antibody Screen NEG (Kateryna Zelaya ., LUCIA) Assessment and Plan 61 F presents with shortness of breath failing outpatient treatment for asthma exacerbation with bronchitis Asthmatic bronchitis: -Increased IV Solu Medrol from 40 mg q8hrs to q6hrs. Taper to oral steroids when patient's status improves -Ceftriaxone 1 g IV daily and Azithromycin 500 mg IV every 24 hours x2 doses. --d/c'd on 07/12 due to no indication of bacterial infection. No fevers, no productive cough, leukocytosis likely secondary to IV steroids. Continue to monitor for s/s of infection/need for antibiotic therapy. -Guaifenesin extended release 600 mg by mouth twice a day -Start Combivent Respimat- monitor patient as intolerance to Dulera and experiencing similar symptoms, but very mild, ?anxiety -Continue Singulair 10 mg by mouth every afternoon --Added flutter valve -Check CBC w diff, IgE, and aspergillus AB Hypertension/CHF: -Carvedilol 3.125 mg by mouth twice a day -Furosemide 20 mg by mouth twice a day -Losartan potassium 25 mg by mouth daily GERD: -Change Omeprazole 20 mg by mouth twice a day to Pantoprazole 40 mg by mouth twice a day. Depression/anxiety: -Continue Sertraline 50 mg by mouth every morning -Alprazolam 0.25 mg PRN, changed to BID on 07/12 Headache: -Tylenol 650 mg PO q6 hrs PRN and Fioricet 1 tab q4 hrs PRN DVT prophylaxis: -Lovenox 40 mg SQ q24 hrs -MARY and SCDs Code Status: -LEVEL I, FULL Dispo: -Discharge to home once medically stable (Kateryna Zelaya ., LUCIA) Attending Attestation: Pt seen/examined, chart reviewed, and care plan d/w LC Zelaya. I agree w/ the chau components of her documentation. Pt with ongoing cough/wheezing but no fever, chills, or sputum production. She confirms recent dx of asthma in the outpatient pulmonary clinic. She confirms she had PFTs. Has not tolerated many inhalers. c/o pulsating/throbbing headache "behind my eyes." has h/o sinus issues but denies sinus symptoms at this time. VSS, afebrile, still with o2 requirement gen - NAD neck - no JVD; shotty lymphadenopathy b/l mouth - no thrush heart - RRR, s1, s2, no obvious murmur lungs - diffuse, mild wheezes b/l; no rales abd - soft, NT ext - no edema labs - 07/12/16 06:34 07/12/16 06:34 Test 07/12/16 06:34 07/12/16 09:44 07/12/16 11:26 Red Blood Count 4.40 M/uL (4.2-5.4) Mean Corpuscular Volume 86.1 fL (80-100) Mean Corpuscular Hemoglobin 28.4 pg (25-34) Mean Corpuscular Hemoglobin Concent 33.0 g/dl (32-36) RDW Standard Deviation 44.0 fL (36.4-46.3) RDW Coefficient of Variation 14.1 % (11.5-14.5) Mean Platelet Volume 10.9 fL (7.4-10.4) Anion Gap 9.0 mmol/L (3-11) Est Creatinine Clear Calc Drug Dose 101.1 ml/min Estimated GFR () 101.1 Estimated GFR (Non- 87.2 BUN/Creatinine Ratio 28.0 (10-20) Calcium Level 8.4 mg/dl (8.5-10.1) Prothrombin Time 11.1 SECONDS (9.0-12.0) Prothromb Time International Ratio 1.0 (0.9-1.1) Hepatitis C Antibody Screen NEG (NEG) A/P: 1. recent dx of asthma, now with exacerbation - agree with d/c of IV antibiotics. Cont steroids; due to lack of improvement increase to 40mg q6h. Cont bronchodilators, mucinex, incentive savannah, etc. wean o2 as tolerated. 2. eosinophilia - recheck cbc w/ diff in AM. certainly could be elevated w/ asthma, but bronchopulmonary aspergillosis should be ruled out. check IgE and aspergillus titers with am labs other plans per Ms. Nathalie Gleason MD (Darryl Gleason MD)
[2016-07-12 14:43] VITALS: BP 159/92; PULSE 70; TEMP 36.7; O2SAT 93
[2016-07-12 16:00] VITALS: O2SAT 93
[2016-07-12] MEDS ORDERED: BUTALBITAL/ACETAMIN/CAFFEINE TAB PO PRN (18:15)
[2016-07-12 20:42] VITALS: BP 155/101; PULSE 74; O2SAT 94
[2016-07-12] MEDS: ALPRAZOLAM 0.25 MG TAB PO SCH (20:47)
[2016-07-12] MEDS: MONTELUKAST SOD 10 MG TAB PO SCH (20:48)
[2016-07-13] VITALS (7 sets, daily range): BP systolic 123–179; BP diastolic 75–98; PULSE 69–80; TEMP 36.7–36.9; O2SAT 91–93
[2016-07-13] MEDS: METHYLPREDNISOLONE IV 40 MG in SYRINGE 0 ML IV SCH ×3 (06:18→17:28)
[2016-07-13 06:33] LABS: BASO % 0.1 %; BASO ABS # 0.01 K/uL (0-0.2); COMPLETE YES; HEMATOCRIT 38.9 % (37-47); IG% 0.7 %; LYMPH % 8.5 %; LYMPH ABS # 0.93 K/uL (1.2-3.4); MEAN CELL VOLUME 85.7 fL (80-100); MEAN CORPUSCULAR HEMOGLOBIN 28.6 pg (25-34); MEAN CORPUSCULAR HGB CONC 33.4 g/dl (32-36); MEAN PLATELET VOLUME 10.8 fL (7.4-10.4); MONO % 3.5 %; NEUT % 87.2 %; PLATELET COUNT 245 K/uL (130-400); RED BLOOD COUNT 4.54 M/uL (4.2-5.4); WHITE BLOOD COUNT 10.93 K/uL (4.8-10.8)
[2016-07-13 07:09] LABS: BUN/CREATININE RATIO 25.3 (10-20); CALCIUM 8.8 mg/dl (8.5-10.1); CREATININE 0.78 mg/dl (0.60-1.20); POTASSIUM 3.5 mmol/L (3.5-5.1)
[2016-07-13] MEDS: IPRATROPIUM BROMIDE/ALBUTEROL respimat INH INH SCH ×4 (08:02→21:10)
[2016-07-13] MEDS: SERTRALINE HCL 50 MG TAB PO SCH (08:02)
[2016-07-13] MEDS: GUAIFENESIN 600 MG TABCR PO SCH ×2 (08:02→21:11)
[2016-07-13] MEDS: LOSARTAN POTASSIUM 25 MG TAB PO SCH (08:03)
[2016-07-13] MEDS: ALPRAZOLAM 0.25 MG TAB PO SCH ×2 (08:03→21:12)
[2016-07-13] MEDS: FUROSEMIDE 20 MG TAB PO SCH ×2 (08:03→17:27)
[2016-07-13] MEDS: PANTOprazole SOD 40 MG TAB PO SCH ×2 (08:03→21:12)
[2016-07-13] MEDS: CARVEDILOL 3.125 MG TAB PO SCH ×2 (08:03→21:11)
[2016-07-13] MEDS: ENOXAPARIN 40 MG/0.4 ML SYR SQ SCH (08:04)
[2016-07-13] MEDS: POLYETHYLENE (MIRALAX) 17 GM PACK PO SCH ×2 (08:04→20:55)
[2016-07-13] MEDS: MONTELUKAST SOD 10 MG TAB PO SCH (21:12)
[2016-07-14] MEDS: METHYLPREDNISOLONE IV 40 MG in SYRINGE 0 ML IV SCH ×2 (00:03→06:21)
[2016-07-14 00:13] VITALS: BP 127/74; PULSE 69; TEMP 36.8; O2SAT 90
[2016-07-14 07:34] VITALS: BP 148/89; PULSE 71; TEMP 36.8; O2SAT 93
[2016-07-14 07:34] LABS: HEMATOCRIT 41.2 % (37-47); MEAN CELL VOLUME 84.8 fL (80-100); MEAN CORPUSCULAR HEMOGLOBIN 28.4 pg (25-34); MEAN CORPUSCULAR HGB CONC 33.5 g/dl (32-36); PLATELET COUNT 291 K/uL (130-400); RED BLOOD COUNT 4.86 M/uL (4.2-5.4); WHITE BLOOD COUNT 12.16 K/uL (4.8-10.8)
--- NOTE | 2016-07-14 07:40 | Progress Note ---
Subjective Date of Service: late entry for visit Jul 13, 2016. Subjective Pt evaluation today including: conversation w/ patient, physical exam, chart review, lab review Pain: headache - frontal - she does not think it is sinus-related PO Intake: normal Voiding: no voiding problems cough, wheezing - both improved minimal dyspnea symptoms are worse at night-time can take bigger breaths denies nasal congestion/drainage or sinus symptoms Problem List Medical Problems: (1) Asthma with exacerbation Status: Acute (2) Bronchiectasis Status: Acute (3) Chest pain Status: Acute (4) Diarrhea Status: Acute (5) Hypoxemia Status: Acute Review of Systems Constitutional: No fever Respiratory: + cough, + dyspnea on exertion, + wheezing, No sputum Cardiac: No chest pain, No orthopnea Abdomen: No pain Objective Vital Signs Date Time Temp Pulse Resp B/P Pulse Ox O2 Delivery O2 Flow Rate FiO2 07/14/16 00:13 36.8 69 16 127/74 90 Room Air 07/14/16 00:08 Room Air 07/13/16 20:56 80 155/94 07/13/16 16:00 91 Room Air 07/13/16 15:49 36.8 69 18 144/88 91 Room Air 07/13/16 11:46 36.9 70 18 137/86 93 Nasal Cannula 3.0 07/13/16 08:00 93 Nasal Cannula 2.0 Humidified Oxygen Physical Exam General Appearance: no apparent distress ENT: pharynx normal, + pertinent finding (no tenderness to palpation of sinuses ) Neck: no JVD Respiratory/Chest: no respiratory distress, no accessory muscle use, + wheezing (but improved; airation is nice today) Cardiovascular: regular rate, rhythm, no gallop, no murmur Abdomen: normal bowel sounds, non tender, soft, no organomegaly Extremities: no pedal edema Laboratory Results Last 24 Hours Test 07/14/16 06:40 White Blood Count 12.16 K/uL Red Blood Count 4.86 M/uL Hemoglobin 13.8 g/dL Hematocrit 41.2 % Mean Corpuscular Volume 84.8 fL Mean Corpuscular Hemoglobin 28.4 pg Mean Corpuscular Hemoglobin Concent 33.5 g/dl RDW Standard Deviation 41.8 fL RDW Coefficient of Variation 13.6 % Platelet Count 291 K/uL Mean Platelet Volume 11.0 fL Assessment and Plan 61yo female: 1. recent dx of asthma, now with exacerbation - Cont steroids at 40mg q6h one more day, then likely wean tomorrow. O2 has been weaned off. 2. eosinophilia - resolved. certainly could be elevated w/ asthma, but bronchopulmonary aspergillosis should be ruled out. IgE and aspergillus titers sent. 3. headache - migraine vs sinus - fioricet. If headache persists - in light of frequent sinus infection history - will obtain CT sinuses. 4. GERD - PPI 5. DVT proph - lovenox 6. HTN - controlled; cont outpatient meds 7. h/o cardiomyopathy - no evidence of clinical CHF. home next 1-2 days hopefully Continued [facility] stay due to: multiple IV medications needed Discharge planning: home
[2016-07-14 08:00] VITALS: O2SAT 93
[2016-07-14 08:13] LABS: CREATININE 0.83 mg/dl (0.60-1.20); POTASSIUM 3.5 mmol/L (3.5-5.1)
[2016-07-14 08:16] LABS: BASO % 0.1 %; BASO ABS # 0.01 K/uL (0-0.2); COMPLETE YES; IG% 1.3 %; LYMPH ABS # 0.99 K/uL (1.2-3.4); MONO % 4.5 %; NEUT % 86.1 %
[2016-07-14] MEDS: LOSARTAN POTASSIUM 25 MG TAB PO SCH (08:40)
[2016-07-14] MEDS: CARVEDILOL 3.125 MG TAB PO SCH (08:40)
[2016-07-14] MEDS: GUAIFENESIN 600 MG TABCR PO SCH (08:40)
[2016-07-14] MEDS: SERTRALINE HCL 50 MG TAB PO SCH (08:40)
[2016-07-14] MEDS: PANTOprazole SOD 40 MG TAB PO SCH (08:41)
[2016-07-14] MEDS: ALPRAZOLAM 0.25 MG TAB PO SCH (08:41)
[2016-07-14] MEDS: FUROSEMIDE 20 MG TAB PO SCH (08:41)
[2016-07-14] MEDS: POLYETHYLENE (MIRALAX) 17 GM PACK PO SCH (08:42)
[2016-07-14] MEDS: ENOXAPARIN 40 MG/0.4 ML SYR SQ SCH (08:42)
[2016-07-14] MEDS: IPRATROPIUM BROMIDE/ALBUTEROL respimat INH INH SCH (08:42)
[2016-07-14] MEDS ORDERED: PRED10TA PO (12:44)
[2016-07-14] MEDS ORDERED: VTMD PO (12:44)
[2016-07-14] MEDS ORDERED: OMEP40CA36 PO (12:44)
[2016-07-14] MEDS ORDERED: PRVHFAIN PO (12:44)
--- NOTE | 2016-07-14 12:52 | Discharge Instructions ---
Discharge Instructions Admission Reason for Admission: Asthma With Exacerbation Discharge Discharge Diagnosis / Problem: 1. asthma exacerbation/flare-up 2. vitamin D deficiency Discharge Goals Goal(s): Improve disease control, Learn about illness, Diagnostic testing, Therapeutic intervention Activity Recommendations Activity Limitations: as noted below Lifting Limitations: gradually increase as tolerated Exercise/Sports Limitations: gradually increase as tolerated Shower/Bathe: no limitations Driving or Machine Use: no limitations . Instructions / Follow-Up Instructions / Follow-Up From Dr. Gleason - 1. For your asthma - * take a prednisone course; start this TONIGHT; always take the prednisone with food. * use your albuterol inhaler OR nebulizer every 4-6 hours SCHEDULED for the next 3-4 days as you recover from your illness * may use [id number] mucinex as needed for cough; can take every 12 hours * see Dr. Pickens within 1 week for follow-up of your asthma 2. Vitamin D deficiency - * take 1 vitamin D capsule twice weekly for 8 weeks * have your vitamin D level rechecked at the conclusion of the course * drink extra milk, eat cheese/yogurt, etc 3. For your heartburn - * I would change to prescription-strength omeprazole 40mg ONCE DAILY IN THE MORNING; this will be more effective for your heartburn than the 20mg dose Current Hospital Diet Patient's current hospital diet: Regular Diet Discharge Diet Recommended Diet: Regular Diet Procedures Procedures Performed: chest x-ray with no evidence of pneumonia Pending Studies Studies pending at discharge: no Medical Emergencies . Who to Call and When: Medical Emergencies: If at any time you feel your situation is an emergency, please call 911 immediately. . Non-Emergent Contact Non-Emergency issues call your: Machining Supervisor Call Non-Emergent contact if: temperature is above 100.5, you have any medication questions Worsening shortness of breath, worsening cough or wheezing, increased/more frequent use of albuterol for your asthma symptoms, etc. . . "Provider Documentation" section prepared by Darryl Gleason. VTE Core Measure Inpt VTE Proph given/why not?: SCD's
[2016-07-14 13:29] VITALS: BP 148/89; PULSE 71; TEMP 36.8; O2SAT 93
[2016-07-16 18:40] LABS: ASPERGILLUS FLAVUS Negative (Negative); ASPERGILLUS FUMIGATUS Negative (Negative); ASPERGILLUS NIGER Negative (Negative); IMMUNOGLOBULIN E TC 24620E 43 KU/L (<115)
--- NOTE | 2016-07-16 23:57 | Discharge Summary ---
Discharge Summary Admission Date: Jul 09, 2016 at 21:00 Discharge Date: Jul 14, 2016 Discharge Disposition: Home Principal Diagnosis: asthma with exacerbation Problems/Secondary Diagnoses: 1. HTN 2. vitamin D deficiency 3. eosinophilia 4. anxiety disorder 5. GERD Immunizations: Have You Had Influenza Vaccine: Yes History of Tetanus Vaccine?: Yes History of Pneumococcal: Yes Pneumococcal Date: Oct 21, 2012 History of Hepatitis B Vaccine: No Procedures: chest x-ray without evidence of pneumonia Medication Reconciliation New Medications: Albuterol (Ventolin Hfa) 60 Puffs/5400 Mcg Aers 2 PUFFS PO Q4H PRN for cough or wheeze, #1 0 Refills Ergocalciferol (Vitamin D) 50,000 Interunit Cap 73305 UNITS PO twice weekly, #8 1 Refill Prednisone Tab (Prednisone) 10 Mg Tab 10 MG PO DIRECTED, #28 TAB 0 Refills 07/14/16 - take 4 tabs at bedtime 07/15/16 - 07/17/16 - take 4 tabs po daily 07/18/16 - 07/19/16 - take 3 tabs po daily 07/20/16 - 07/21/16 - take 2 tabs po daily 07/22/16 - 07/23/16 - take 1 tab po daily then stop. Take all with food. Changed Medications: Omeprazole (Prilosec) 40 Mg Cap 1 CAP PO QAM for 30 Days, #30 CAP 5 Refills (Changed from: Omeprazole 20 Mg Tab 20 Mg PO BID) Continued Medications: Alprazolam (Alprazolam) 0.25 Mg Tab 0.25 PO BID PRN for Anxiety Carvedilol (Coreg) 3.125 Mg Tab 3.125 MG PO BID, TAB Furosemide (Lasix) 20 Mg Tab 20 MG PO BID, TAB Ipratropium-Albuterol (Duoneb) 3 Ml Nebu 1 TREATMENT INH Q4H, INHA Losartan Potassium (Cozaar) 25 Mg Tab 25 MG PO DAILY, TAB Montelukast Sodium (Singulair) 10 Mg Tab 10 MG PO QPM, TAB Naproxen (Naproxen) 500 Mg Tab 500 MG PO Q12 PRN for Pain Sertraline HCl (Sertraline HCl) 50 Mg Tab 50 MG PO QAM, #30 Discontinued Medications: Albuterol (Proair Hfa) Aers 2 PUFFS INH QID PRN for SOB/Wheezing Discharge Exam Physical Exam: General Appearance: no apparent distress ENT: pharynx normal Neck: no JVD Respiratory/Chest: no respiratory distress, no accessory muscle use, + wheezing (minimal end-exp) Cardiovascular: regular rate, rhythm, no gallop, no murmur, normal peripheral pulses Abdomen / GI: normal bowel sounds, non tender, soft, no organomegaly Extremities: no pedal edema Neurologic/Psychiatric: alert, oriented x 3, + pertinent finding (anxious ) Hospital Course HISTORY OF PRESENT ILLNESS: The patient is a 61-year-old female who presented to the emergency room with complaint of worsening shortness of breath, chest pain, interscapular pain, cough, chills, pain and swelling in legs that began about one week prior to arrival. She has been undergoing treatment for breathing difficulties for nearly the past 2 months, and was recently diagnosed with asthma. HOSPITAL COURSE: The patient was treated for asthma exacerbation in the customary fashion with oxygen, IV steroids, scheduled nebulizers, and pulmonary toilet. Chest x-ray failed to show pneumonia and thus antibiotics were not employed. She made nice improvement in all pulmonary symptoms, O2 was weaned off, and steroids were tapered. She will complete a taper of prednisone following discharge. All previous asthma controller agents will be continued. During her stay it was noted that she had a high eosinophil count of 15%. This improved/normalized with use of steroids. IgE level and aspergillus titers were sent to exclude the possibility of bronchopulmonary aspergillosis. Certainly uncontrolled asthma itself could cause the eosinophilia as well. PCP or primary rewrite editor - please follow up on the IgE level and aspergillus titers. The patient's vitamin D level was found to be low, and she was asked to complete a course of ergocalciferol over 8 weeks. She will need repeat vitamin D level at the conclusion of this. Lastly, although she carries a diagnosis of cardiomyopathy, she had no clinical or radiographic evidence of CHF while hospitalized. Total Time Spent: Greater than 30 minutes This includes examination of the patient, discharge planning, medication reconciliation, and communication with other providers. Discharge Instructions Please refer to the electronic Patient Visit Report (Discharge Instructions) for additional information. Follow-Up see ryan Barrera, within 1 week Additional Copies To Tan Pickens D.O.
== END 2016-07-14 13:50 | disposition home or self-care (01) | DRG 202 ==
LOC: ENRESERVTM → ENRESERVDT → CANRESERV → C.EDB 17:55 → C.2T 21:00 → C.MED 07-11 12:23
PROVIDERS: ADMIT Hospitalist; ATTEND Internal Medicine
DX: J45.901 Unspecified asthma with (acute) exacerbation (principal); I42.9 Cardiomyopathy, unspecified; I50.20 Unspecified systolic (congestive) heart failure; R09.02 Hypoxemia; K21.9 Gastro-esophageal reflux disease without esophagitis; I10 Essential (primary) hypertension; E55.9 Vitamin D deficiency, unspecified; F41.9 Anxiety disorder, unspecified; F32.9 Major depressive disorder, single episode, unspecified; Z91.040 Latex allergy status

== ENCOUNTER → 2016-09-03 | Outpatient (CLI) | payer BC ==
[~2016-09-03] MED LIST changes: -ALBU1AER9 INH; -OMEP20TA PO; +OMEP40CA36 PO; -POTA-331 PO; +PRED10TA PO; +PRVHFAIN PO; +VTMD PO; +ZLF/50 PO
== END | disposition home or self-care (01) ==
LOC: C.LABPBG 12:24
PROVIDERS: ATTEND Family Medicine
DX: E55.9 Vitamin D deficiency, unspecified (principal)

== ENCOUNTER → 2016-09-27 | Outpatient (CLI) | payer BC ==
[2016-09-27 12:54] LABS: ALT/SGPT 16 U/L (12-78); AST/SGOT 14 U/L (15-37); BLOOD UREA NITROGEN 23 mg/dl (7-18); BUN/CREATININE RATIO 29.5 (10-20); CARBON DIOXIDE 31 mmol/L (21-32); CHLORIDE 107 mmol/L (98-107); CREATININE 0.79 mg/dl (0.60-1.20); GLUCOSE 99 mg/dl (70-99); POTASSIUM 3.8 mmol/L (3.5-5.1); SODIUM 145 mmol/L (136-145)
[2016-09-27 12:55] LABS: ALB/GLOB RATIO 1.2 (0.9-2); ALKALINE PHOSPHATASE 93 U/L (45-117)
[2016-09-27 13:16] LABS: ESTIMATED AVERAGE GLUCOSE 126 mg/dl; HA1C FLAG Normal (Normal)
== END | disposition home or self-care (01) ==
LOC: C.LABPBG 07:13
PROVIDERS: ATTEND Family Medicine
DX: I10 Essential (primary) hypertension (principal); R73.01 Impaired fasting glucose; Z11.59 Encounter for screening for other viral diseases

== ENCOUNTER → 2016-12-10 | Outpatient (CLI) | payer BC ==
--- NOTE | 2016-12-10 10:23 | DIAGNOSTIC IMAGING REPORT ---
CHEST 2 VIEWS ROUTINE CLINICAL HISTORY: R05 Cough h/o of [id number] dyspnea COMPARISON STUDY: 05/09/2017 FINDINGS: Small parenchymal infiltrate left base. Glottic atelectasis right base. Lungs otherwise are clear. IMPRESSION: Small parenchymal infiltrate/atelectasis left and to lesser extent right base. Electronically signed by: Renard Godinez M.D. 12/10/2016 10:22 AM Dictated Date/Time: 12/10/2016 10:21 AM
[2016-12-10 12:25] LABS: BASO % 0.2 %; BASO ABS # 0.02 K/uL (0-0.2); COMPLETE YES; EOS % 0.6 %; HEMATOCRIT 39.6 % (37-47); IG% 0.4 %; LYMPH % 9.8 %; LYMPH ABS # 0.82 K/uL (1.2-3.4); MEAN CELL VOLUME 85.9 fL (80-100); MEAN CORPUSCULAR HEMOGLOBIN 27.8 pg (25-34); MEAN CORPUSCULAR HGB CONC 32.3 g/dl (32-36); MEAN PLATELET VOLUME 11.1 fL (7.4-10.4); MONO % 2.4 %; NEUT % 86.6 %; PLATELET COUNT 257 K/uL (130-400); RED BLOOD COUNT 4.61 M/uL (4.2-5.4); WHITE BLOOD COUNT 8.33 K/uL (4.8-10.8)
[2016-12-10 12:48] LABS: CALCIUM 8.6 mg/dl (8.5-10.1)
[2016-12-10 12:49] LABS: ALT/SGPT 22 U/L (12-78); BLOOD UREA NITROGEN 12 mg/dl (7-18); BUN/CREATININE RATIO 14.8 (10-20); CARBON DIOXIDE 26 mmol/L (21-32); CHLORIDE 109 mmol/L (98-107); CREATININE 0.81 mg/dl (0.60-1.20); GLUCOSE 124 mg/dl (70-99); POTASSIUM 3.2 mmol/L (3.5-5.1); SODIUM 146 mmol/L (136-145)
[2016-12-10 12:52] LABS: ALB/GLOB RATIO 1.1 (0.9-2); ALKALINE PHOSPHATASE 93 U/L (45-117); AST/SGOT 13 U/L (15-37)
== END | disposition home or self-care (01) ==
LOC: C.RAD1850 10:13
PROVIDERS: ATTEND Physician Assistant Medical
DX: R05 Cough (principal); J18.9 Pneumonia, unspecified organism

== ENCOUNTER → 2016-12-17 | Outpatient (CLI) | payer BC ==
[~2016-12-17] MED LIST changes: +OPTIRAY 320 IV PRN
--- NOTE | 2016-12-17 14:37 | DIAGNOSTIC IMAGING REPORT ---
CT ANGIOGRAM OF THE CHEST CLINICAL HISTORY: Dyspnea. Chest tightness. COMPARISON STUDY: Chest CT scans dated 07/22/2015 and 06/21/2014. TECHNIQUE: Following the IV administration of 93 cc of Optiray 320, CT angiogram of the chest was performed from the upper abdomen to the thoracic inlet utilizing the pulmonary embolus protocol. Images are reviewed in the axial, sagittal, and coronal planes. 3-D MIPS images are created and assessed. IV contrast was administered without complication. CT DOSE: 673.12 mGy.cm FINDINGS: Thyroid: Imaged portions of the thyroid gland are normal in size and attenuation. Thoracic aorta: The thoracic aorta is normal in caliber and demonstrates standard 3-vessel arch anatomy. No dissection is seen. Pulmonary vasculature: The pulmonary trunk is normal in caliber. There are no filling defects identified in main, lobar, or segmental pulmonary branches to suggest pulmonary embolus. Heart: The heart is normal in size and configuration, and without pericardial effusion. Lungs and pleural spaces: Evaluation of the lung parenchyma is degraded by respiratory motion artifact. No airspace consolidation or pleural effusion is seen. The trachea and central airways are clear. Mediastinum: There is no mediastinal lymphadenopathy. [place]: Clear. Axillae: There is no axillary lymphadenopathy. Upper abdomen: There is a small hiatal hernia. Partially visualized upper abdominal viscera is otherwise within normal limits. Skeletal structures: The skeletal structures are osteopenic. No lytic or blastic bony lesions are seen. IMPRESSION: 1. There is no evidence of pulmonary embolus in the main, lobar, or segmental pulmonary arteries. 2. The lungs are clear. Electronically signed by: Guero Singh M.D. 12/17/2016 2:36 PM Dictated Date/Time: 12/17/2016 2:29 PM
== END | disposition home or self-care (01) ==
LOC: C.CTS 14:07
PROVIDERS: ATTEND Physician Assistant Medical
DX: R06.00 Dyspnea, unspecified (principal); R07.9 Chest pain, unspecified

== ENCOUNTER → 2016-12-17 | Outpatient (CLI) | payer BC ==
[~2016-12-17] MED LIST changes: -OPTIRAY 320 IV PRN
--- NOTE | 2016-12-17 13:35 | DIAGNOSTIC IMAGING REPORT ---
CHEST 2 VIEWS ROUTINE CLINICAL HISTORY: J18.9 [id number] COMPARISON STUDY: 12/10/2016 FINDINGS: The cardiac and mediastinal contours remain stable. Increased left basilar markings the level of cardiophrenic angle persist. These could be inflammatory or atelectatic. No pleural effusions are evident.[ Prominent markings at the left cardiophrenic angle, are likely secondary to a prominent fat pad and atelectatic change. IMPRESSION: Stable increased markings at the level of cardiophrenic angle, atelectatic versus inflammatory Electronically signed by: Mukesh Lance M.D. 12/17/2016 1:33 PM Dictated Date/Time: 12/17/2016 1:32 PM
== END | disposition home or self-care (01) ==
LOC: C.RAD1850 13:19
PROVIDERS: ATTEND Physician Assistant Medical
DX: J18.9 Pneumonia, unspecified organism (principal)

== ENCOUNTER → 2017-04-15 | Outpatient (CLI) | payer BC ==
[2017-04-15 17:04] LABS: BLOOD UREA NITROGEN 17 mg/dl (7-18); BUN/CREATININE RATIO 17.3 (10-20); CALCIUM 8.4 mg/dl (8.5-10.1); CARBON DIOXIDE 28 mmol/L (21-32); CHLORIDE 107 mmol/L (98-107); GLUCOSE 126 mg/dl (70-99); POTASSIUM 3.6 mmol/L (3.5-5.1); SODIUM 142 mmol/L (136-145)
== END | disposition home or self-care (01) ==
LOC: C.LABPBG 14:31
PROVIDERS: ATTEND Family Medicine
DX: R06.09 Other forms of dyspnea (principal); R05 Cough; I50.9 Heart failure, unspecified

== ENCOUNTER → 2017-05-23 | Outpatient (CLI) | payer BC ==
[2017-05-23 17:39] LABS: HEMATOCRIT 40.8 % (37-47); MEAN CELL VOLUME 87.9 fL (80-100); MEAN CORPUSCULAR HEMOGLOBIN 28.4 pg (25-34); MEAN CORPUSCULAR HGB CONC 32.4 g/dl (32-36); MEAN PLATELET VOLUME 10.8 fL (7.4-10.4); PLATELET COUNT 302 K/uL (130-400); RED BLOOD COUNT 4.64 M/uL (4.2-5.4); WHITE BLOOD COUNT 9.33 K/uL (4.8-10.8)
[2017-05-23 17:47] LABS: ALT/SGPT 32 U/L (12-78); AST/SGOT 16 U/L (15-37); BLOOD UREA NITROGEN 14 mg/dl (7-18); BUN/CREATININE RATIO 15.3 (10-20); CALCIUM 9.2 mg/dl (8.5-10.1); CARBON DIOXIDE 34 mmol/L (21-32); CHLORIDE 103 mmol/L (98-107); CREATININE 0.92 mg/dl (0.60-1.20); GLUCOSE 94 mg/dl (70-99); POTASSIUM 3.2 mmol/L (3.5-5.1); SODIUM 142 mmol/L (136-145)
[2017-05-23 17:56] LABS: ALKALINE PHOSPHATASE 96 U/L (45-117)
[2017-05-24 07:17] LABS: ESTIMATED AVERAGE GLUCOSE 134 mg/dl; HA1C FLAG Normal (Normal)
== END | disposition home or self-care (01) ==
LOC: C.LABPBG 11:20
PROVIDERS: ATTEND Family Medicine
DX: I10 Essential (primary) hypertension (principal); I50.9 Heart failure, unspecified; R73.01 Impaired fasting glucose

== ENCOUNTER 2017-06-21 15:29 | Inpatient (IN) | payer BC ==
[~2017-06-21] VITALS: Ht 170.2 cm; Wt 108.6 kg
[~2017-06-21 15:29] MED LIST changes: -IPRASOL4 INH; -NAPR500T3 PO; -ZLF/50 PO
[2017-06-21] MEDS ORDERED: NAPR-1231 PO (15:53)
[2017-06-21] MEDS ORDERED: ALBUT/IPRATROP 3MG/0.5MG NEB 3 ML VIAL INH STA (15:53)
[2017-06-21] MEDS ORDERED: METHYLPREDNISOLONE 125 MG VIAL IV STA (15:53)
--- NOTE | 2017-06-21 16:10 | DIAGNOSTIC IMAGING REPORT ---
CHEST ONE VIEW PORTABLE CLINICAL HISTORY: 62 years-old Female presenting with dyspnea. TECHNIQUE: Portable upright AP view of the chest was obtained. COMPARISON: 12/17/2016. FINDINGS: Atherosclerosis of aortic arch. Cardiac silhouette mildly enlarged. Mildly prominent pulmonary vasculature comparison to prior. Minimal basilar opacities. No pleural effusion or pneumothorax. Osseous structures normal. Upper abdomen normal. IMPRESSION: 1. Minimal bibasilar opacities likely atelectasis. 2. Mild cardiomegaly and suggestion of mild volume overload. No astrid pulmonary edema. Electronically signed by: Vikram Matta M.D. 06/21/2017 4:08 PM Dictated Date/Time: 06/21/2017 4:07 PM
--- NOTE | 2017-06-21 16:22 | EMERGENCY ROOM VISIT NOTE ---
History First contact with patient: 15:47 Chief Complaint: SHORTNESS OF BREATH Stated Complaint: SOB; DOCTOR SENT TO ER Nursing Triage Summary: Patient ambulatory to triage, tachypnic, states "I can't breathe. It has been going on since 06/09 and is getting worse. I have a cough, chills, swelling in my feet and hands. I have tightness in my chest. I have asthma. I just came off of prednisone. I am using inhalers and nebulizers with no relief." Patient reports occassionally coughing up yellow sputum. Patient noted to have a raspy voice and unable to speak in full sentences. History of Present Illness The patient is a 62 year old female who presents to the Emergency Room via private vehicle referred by family doctor and accompanied by with complaints of "shortness of breath, doctor sent to emergency department". The patient states that from June 09 and shortly before she has had shortness of breath, wheezing cough, chills and swelling in her hands and feet. She has a tightness in the chest which she describes as a severe pressure. She was recently diagnosed with asthma. She just finished prednisone. She has been on Levaquin since Tuesday. She sees Dr. canada for pulmonology as well as Dr. Lane for family doctor. She notes that she can at times she will cough up a yellow sputum. She denies smoking history. Review of Systems A complete 10-point Review of Systems was discussed with the patient, with pertinent positives and negatives listed in the History of Present Illness. All remaining Review of Systems questions can be considered negative unless otherwise specified. Past Medical/Surgical History Medical Problems: (1) Acute respiratory failure (2) Asthma (3) Asthma exacerbation (4) Benign hypertension (5) Bronchitis (6) Cardiomyopathy (7) Cardiomyopathy (8) CHF (congestive heart failure) (9) Community acquired pneumonia (10) Failure of outpatient treatment (11) Gastroesophageal reflux disease (12) Pneumonia (13) Respiratory failure (14) Systolic heart failure Family History Cancer Heart disease Hypertension Lung disease Social History Smoking Status: Never Smoker Drug Use: none Marital Status: Housing Status: lives with family Occupation Status: employed Current/Historical Medications Scheduled Cholecalciferol (Vitamin D3), 2,000 INTER.UNIT PO DAILY Furosemide (Furosemide), 20 MG PO BID Levofloxacin (Levaquin), 500 MG PO DAILY Losartan Potassium (Losartan Potassium), 25 MG PO DAILY Metoprolol Succinate (Metoprolol Succinate ER), 25 MG PO DAILY Montelukast Sod (Montelukast Sodium), 10 MG PO QPM Pantoprazole (Pantoprazole Sodium), 40 MG PO QAM Ranitidine Hcl (Zantac), 300 MG PO HS Sertraline HCl (Sertraline HCl), 50 MG PO QAM Tiotropium [place] (Spiriva Respimat), 2 PUFFS INH DAILY Scheduled PRN Alprazolam (Alprazolam), 0.25 MG PO BID PRN for Anxiety Ipratropium [place] (Atrovent 0.02% Soln), 2.5 ML NEB Q4-6HRS PRN for SOB/ Wheezing Ipratropium-Albuterol (Duoneb), 1 TREATMENT INH Q4H PRN for SOB/Wheezing Naproxen (Naproxen), 500 MG PO Q12 PRN for Pain Physical Exam Vital Signs Date Time Temp Pulse Resp B/P (MAP) Pulse Ox O2 Delivery O2 Flow Rate FiO2 06/21/17 18:25 87 20 135/78 93 Nasal Cannula 3.0 06/21/17 17:24 98 06/21/17 17:20 81 20 140/79 98 Nebulizer 8.0 06/21/17 16:41 71 06/21/17 16:32 73 16 92 Room Air 06/21/17 15:44 Room Air 06/21/17 15:40 37.0 81 20 175/100 92 Room Air Physical Exam VITAL SIGNS - Vital signs and nursing notes were reviewed. Stable. Hypertensive. Saturating on room air at 92%. GENERAL -62-year-old female appearing her stated age who is in no acute distress. She is speaking in abbreviated sentences/ pausing after each word secondary to her appreciated shortness of breath. Communicates well with provider and answers questions appropriately. SKIN - Without rashes. No petechial rashes. HEAD - NC/AT. EYES - Sclera anicteric. EARS - No deformities of external structures noted on gross examination bilaterally. NOSE - Midline and without cyanosis. No epistaxis or purulent drainage noted. MOUTH/OROPHARYNX - Without perioral cyanosis. Buccal mucosa pink and moist and without leukoplakia. Tongue midline with equal elevation of palate bilaterally. No tonsillar hypertrophy, erythema, or exudates noted. LUNGS - Chest wall symmetric without accessory muscle use, intercostals retractions, or central cyanosis. Bilateral wheezing both inspiratory and expiratory noted to auscultation. CARDIAC - RRR with S1/S2. No murmur, rubs, or gallops appreciated. EXTREMITIES - No clubbing or peripheral cyanosis. No pretibial edema present. +5 /5 strength noted in UE/LE bilaterally. NEUROLOGIC - Cranial nerves II through XII grossly intact. Sensory intact to light touch throughout. PSYCH - A&O, and cooperates fully with examiner. Pt is very pleasant and interacts well with examiner. Medical Decision & Procedures ER Provider Diagnostic Interpretation: CHEST ONE VIEW PORTABLE CLINICAL HISTORY: 62 years-old Female presenting with dyspnea. TECHNIQUE: Portable upright AP view of the chest was obtained. COMPARISON: 12/17/2016. FINDINGS: Atherosclerosis of aortic arch. Cardiac silhouette mildly enlarged. Mildly prominent pulmonary vasculature comparison to prior. Minimal basilar opacities. No pleural effusion or pneumothorax. Osseous structures normal. Upper abdomen normal. IMPRESSION: 1. Minimal bibasilar opacities likely atelectasis. 2. Mild cardiomegaly and suggestion of mild volume overload. No astrid pulmonary edema. Electronically signed by: Vikram Matta M.D. 06/21/2017 4:08 PM Dictated Date/Time: 06/21/2017 4:07 PM Laboratory Results 06/21/17 16:20 Red Blood Count 4.48, Mean Corpuscular Volume 86.2, Mean Corpuscular Hemoglobin 28.6, Mean Corpuscular Hemoglobin Concent 33.2, Mean Platelet Volume 10.6, Neutrophils (%) (Auto) 80.1, Lymphocytes (%) (Auto) 12.9, Monocytes (%) (Auto) 6.1, Eosinophils (%) (Auto) 0.0, Basophils (%) (Auto) 0.1, Neutrophils # (Auto) 5.81, Lymphocytes # (Auto) 0.94, Monocytes # (Auto) 0.44, Eosinophils # (Auto) 0.00, Basophils # (Auto) 0.01 06/21/17 16:20 Test 06/21/17 16:20 06/21/17 16:31 White Blood Count 7.26 K/uL (4.8-10.8) Red Blood Count 4.48 M/uL (4.2-5.4) Hemoglobin 12.8 g/dL (12.0-16.0) Hematocrit 38.6 % (37-47) Mean Corpuscular Volume 86.2 fL (80-100) Mean Corpuscular Hemoglobin 28.6 pg (25-34) Mean Corpuscular Hemoglobin Concent 33.2 g/dl (32-36) Platelet Count 261 K/uL (130-400) Mean Platelet Volume 10.6 fL (7.4-10.4) Neutrophils (%) (Auto) 80.1 % Lymphocytes (%) (Auto) 12.9 % Monocytes (%) (Auto) 6.1 % Eosinophils (%) (Auto) 0.0 % Basophils (%) (Auto) 0.1 % Neutrophils # (Auto) 5.81 K/uL (1.4-6.5) Lymphocytes # (Auto) 0.94 K/uL (1.2-3.4) Monocytes # (Auto) 0.44 K/uL (0.11-0.59) Eosinophils # (Auto) 0.00 K/uL (0-0.5) Basophils # (Auto) 0.01 K/uL (0-0.2) RDW Standard Deviation 48.1 fL (36.4-46.3) RDW Coefficient of Variation 15.2 % (11.5-14.5) Immature Granulocyte % (Auto) 0.8 % Immature Granulocyte # (Auto) 0.06 K/uL (0.00-0.02) Prothrombin Time 10.8 SECONDS (9.0-12.0) Prothromb Time International Ratio 1.0 (0.9-1.1) Activated Partial Thromboplast Time 25.2 SECONDS (21.0-31.0) Partial Thromboplastin Ratio 1.0 Anion Gap 7.0 mmol/L (3-11) Est Creatinine Clear Calc Drug Dose 90.2 ml/min Estimated GFR () 86.3 Estimated GFR (Non- 74.5 BUN/Creatinine Ratio 13.0 (10-20) Calcium Level 8.3 mg/dl (8.5-10.1) Magnesium Level 1.8 mg/dl (1.8-2.4) Total Bilirubin 0.3 mg/dl (0.2-1) Aspartate Amino Transf (AST/SGOT) 13 U/L (15-37) Alanine Aminotransferase (ALT/SGPT) 20 U/L (12-78) Alkaline Phosphatase 89 U/L (45-117) Total Creatine Kinase 79 U/L (26-192) Creatine Kinase MB 0.8 ng/ml (0.5-3.6) Creatine Kinase MB Ratio 1.0 (0-3.0) Troponin I < 0.015 ng/ml (0-0.045) Pro-B-Type Natriuretic Peptide 857 pg/ml (0-900) Total Protein 6.5 gm/dl (6.4-8.2) Albumin 3.2 gm/dl (3.4-5.0) Globulin 3.3 gm/dl (2.5-4.0) Albumin/Globulin Ratio 1.0 (0.9-2) Thyroid Stimulating Hormone (TSH) 0.426 uIu/ml (0.300-4.500) Influenza Type A Antigen Neg for Influ A (NEG) Influenza Type B Antigen Neg for Influ B (NEG) Bedside D-Dimer 327 ng/mlFEU (0-450) Bedside Troponin I < 0.030 ng/ml (0-0.045) Medications Administered Medications (Trade) Dose Ordered Sig/Db Route Start Time Stop Time Status Last Admin Dose Admin Albuterol/ Ipratropium (Duoneb) 12 ml ONE STAT INH 06/21/17 15:53 06/21/17 15:57 DC 06/21/17 16:31 12 ML Methylprednisolone Sodium Succinate (Solu-Medrol IV) 125 mg NOW STAT IV 06/21/17 15:53 06/21/17 15:57 DC 06/21/17 16:31 125 MG Medical Decision Patient was seen and evaluated as above. She presents to us today with appreciable shortness of breath and chest pain. She has been referred by her family doctor here today. She had a breathing treatment prior to coming here without relief. She follows with Dr. Del Castillo of cardiology, Dr. [place] of pulmonology as well as Dr. Lane her family doctor. She denies smoking history. She has noticed swelling in the legs and hands. IV access was initiated, and the above workup was performed. Stat chest x-ray was performed and reveals volume overload but no pneumonia. EKG reveals normal sinus rhythm. No ectopy or ischemic change. This was compared to previous and no significant change was found. The hour-long DuoNeb seemed to help some. She was given 125mg of Solu-Medrol. Coags normal. D-dimer negative. Potassium low at 2.9. No evidence of kidney or liver failure. Calcium low at 8.3. Troponin negative. BNP 857. TSH normal. Flu negative. Chest x-ray no pneumonia. Potentially some fluid overload. I believe that because the patient was still very symptomatic with wheezes as well as conversational dyspnea that inpatient management is warranted for her suspected asthma exacerbation. I discussed the case with the attending physician and subsequent the hospitalist. Please refer to further documentation regarding her stay. In evaluation treatment this patient following differential diagnoses were entertained: [place], PE, asthma exacerbation, COPD, peritonitis, caused enteritis, heart failure, among others. Impression Primary Impression: Asthma with exacerbation Additional Impressions: Hypokalemia Failure of outpatient treatment Departure Information Dispostion Admitted as an inpatient Condition FAIR Referrals Rosalva Lane DO (PCP) Patient Instructions My [facility] Problem Qualifiers
[2017-06-21 16:32] VITALS: PULSE 73; O2SAT 92
[2017-06-21 16:45] LABS: BASO % 0.1 %; BASO ABS # 0.01 K/uL (0-0.2); HEMATOCRIT 38.6 % (37-47); HEMOGLOBIN 12.8 g/dL (12.0-16.0); IG# 0.06 K/uL (0.00-0.02); LYMPH % 12.9 %; LYMPH ABS # 0.94 K/uL (1.2-3.4); MEAN CELL VOLUME 86.2 fL (80-100); MEAN CORPUSCULAR HEMOGLOBIN 28.6 pg (25-34); MEAN CORPUSCULAR HGB CONC 33.2 g/dl (32-36); MEAN PLATELET VOLUME 10.6 fL (7.4-10.4); MONO % 6.1 %; MONO ABS # 0.44 K/uL (0.11-0.59); NEUT % 80.1 %; NEUT ABS # 5.81 K/uL (1.4-6.5); PLATELET COUNT 261 K/uL (130-400); RED CELL DISTRIBUTION WIDTH CV 15.2 % (11.5-14.5); RED CELL DISTRIBUTION WIDTH SD 48.1 fL (36.4-46.3); WHITE BLOOD COUNT 7.26 K/uL (4.8-10.8)
[2017-06-21] MEDS ORDERED: ATRINSX NEB (16:47)
[2017-06-21] MEDS ORDERED: LSX20 PO (16:47)
[2017-06-21] MEDS ORDERED: CZR25 PO (16:47)
[2017-06-21] MEDS ORDERED: TPRSR/25 PO (16:47)
[2017-06-21] MEDS ORDERED: RANI300T PO (16:47)
[2017-06-21] MEDS ORDERED: ALPR0.254 PO (16:47)
[2017-06-21] MEDS ORDERED: LEVO1TAB33 PO (16:47)
[2017-06-21] MEDS ORDERED: PANT40TA2 PO (16:47)
[2017-06-21] MEDS ORDERED: SNG10 PO (16:47)
[2017-06-21] MEDS ORDERED: TIOT1AER2 INH (16:49)
[2017-06-21 16:52] LABS: PTT PATIENT 25.2 SECONDS (21.0-31.0)
[2017-06-21 17:06] LABS: ALBUMIN 3.2 gm/dl (3.4-5.0); ALT/SGPT 20 U/L (12-78); AST/SGOT 13 U/L (15-37); BLOOD UREA NITROGEN 11 mg/dl (7-18); CALCIUM 8.3 mg/dl (8.5-10.1); CARBON DIOXIDE 30 mmol/L (21-32); CREATININE 0.85 mg/dl (0.60-1.20); GLUCOSE 133 mg/dl (70-99); POTASSIUM 2.9 mmol/L (3.5-5.1); SODIUM 143 mmol/L (136-145)
[2017-06-21 17:16] LABS: ALKALINE PHOSPHATASE 89 U/L (45-117); CKMB 0.8 ng/ml (0.5-3.6); TOTAL PROTEIN 6.5 gm/dl (6.4-8.2)
[2017-06-21] MEDS ORDERED: CHOL2000 PO (17:18)
[2017-06-21 17:38] LABS: INFLUENZA B ANTIGEN Neg for Influ B (NEG)
[2017-06-21] MEDS ORDERED: IPRA-64 INH (18:49)
[2017-06-21] MEDS ORDERED: ZLF/50 PO (18:49)
[2017-06-21] MEDS ORDERED: ONDANSETRON INJ 2 MG/ML 2 ML VIAL IV PRN (19:00)
[2017-06-21] MEDS ORDERED: ALUMINUM/MAGNESIUM/SIMETH (MAALOX MAX) 30 ML UDC PO PRN (19:00)
[2017-06-21] MEDS ORDERED: POLYETHYLENE (MIRALAX) 17 GM PACK PO PRN (19:00)
[2017-06-21] MEDS ORDERED: ALPRAZOLAM 0.25 MG TAB PO PRN (19:00)
[2017-06-21] MEDS ORDERED: MAGNESIUM HYDROXIDE SUSP 30 ML UDC PO PRN (19:00)
--- NOTE | 2017-06-21 19:21 | History and Physical ---
History & Physical Date & Time of Service: Jun 21, 2017 at 19:02 Chief Complaint: Sob; Doctor Sent To Er Primary Care Physician: Rosalva Lane DO History of Present Illness Source: patient, family, clinic records, hospital records Patient is a pleasant 62 y/o female, with PMHx of asthma, nonischemic cardiomyopathy, diastolic CHF, HTN, depression/anxiety, and GERD, who presented to the ED because of worsening SOB. Patient states she has been dealing with ongoing shortness of breath since June 09. She was placed on multiple Prednisone tapers and recently placed on Levaquin 500 mg daily- started on . She notes a productive cough w/ yellow sputum. She admits to chest congestion and feels as though she is unable to cough everything up. She has been eating and drinking OK. She follows w/ Dr. Canada outpatient. She notes she follows w/ Dr. Del Castillo and he recently changed her Coreg to Metoprolol at the beginning of the month. +wheezing. Patient denies any fever, chills, sweats, lightheadedness, dizziness, vision changes, CP, palpitations, edema, abdominal pain, nausea, vomiting, diarrhea, urinary symptoms, melena, numbness/tingling, weakness, muscle/joint pain, anxiety/depression, active bleeding, or new skin discoloration/changes. Past Medical/Surgical History Medical Problems: asthma nonischemic cardiomyopathy diastolic CHF HTN depression/anxiety GERD Surgical History: appendectomy cholecystectomy sinus surgery tonsillectomy knee surgery Family History Cancer Heart disease Hypertension Lung disease Social History Smoking Status: Never Smoker Drug Use: none Marital Status: Housing status: lives with family Occupational Status: employed Immunizations History of Influenza Vaccine: Yes History of Tetanus Vaccine?: Yes History of Pneumococcal: Yes Pneumococcal Date: Oct 21, 2012 History of Hepatitis B Vaccine: No Multi-Drug Resistant Organisms History of MDRO: No Allergies Coded Allergies: Formoterol (Verified Allergy, Severe, tongue swells, 06/21/17) Mometasone (Verified Allergy, Severe, tongue swells, 06/21/17) Ketorolac (Unverified Allergy, Intermediate, ITCHING, 06/21/17) Latex1 -Allergic Contact Dermititis (Verified Allergy, Mild, Rash/redness , 06/21/17) Home Medications Scheduled Cholecalciferol (Vitamin D3), 2,000 INTER.UNIT PO DAILY Furosemide (Furosemide), 20 MG PO BID Levofloxacin (Levaquin), 500 MG PO DAILY Losartan Potassium (Losartan Potassium), 25 MG PO DAILY Metoprolol Succinate (Metoprolol Succinate ER), 25 MG PO DAILY Montelukast Sod (Montelukast Sodium), 10 MG PO QPM Pantoprazole (Pantoprazole Sodium), 40 MG PO QAM Ranitidine Hcl (Zantac), 300 MG PO HS Sertraline HCl (Sertraline HCl), 50 MG PO QAM Tiotropium [place] (Spiriva Respimat), 2 PUFFS INH DAILY Scheduled PRN Alprazolam (Alprazolam), 0.25 MG PO BID PRN for Anxiety Ipratropium [place] (Atrovent 0.02% Soln), 2.5 ML NEB Q4-6HRS PRN for SOB/ Wheezing Ipratropium-Albuterol (Duoneb), 1 TREATMENT INH Q4H PRN for SOB/Wheezing Naproxen (Naproxen), 500 MG PO Q12 PRN for Pain Physical Exam Vital Signs Date Time Temp Pulse Resp B/P (MAP) Pulse Ox O2 Delivery O2 Flow Rate FiO2 06/21/17 18:25 87 20 135/78 93 Nasal Cannula 3.0 06/21/17 17:24 98 06/21/17 17:20 81 20 140/79 98 Nebulizer 8.0 06/21/17 16:41 71 06/21/17 16:32 73 16 92 Room Air 06/21/17 15:44 Room Air 06/21/17 15:40 37.0 81 20 175/100 92 Room Air General Appearance: no apparent distress, + pertinent finding (O2 NC) Head: normocephalic, atraumatic Eyes: normal inspection, PERRL ENT: hearing grossly normal Neck: supple Respiratory/Chest: no respiratory distress, no accessory muscle use, + decreased breath sounds (throughout ), + rhonchi (upper lung kulkarni), + wheezing (expiratory, throughout all lungs kulkarni ) Cardiovascular: regular rate, rhythm Abdomen/GI: normal bowel sounds, non tender, soft Back: normal inspection Extremities/Musculoskelatal: no calf tenderness, no pedal edema Neurologic/Psych: alert, normal mood/affect, oriented x 3 Skin: normal color, warm/dry, no rash Diagnostics Laboratory Results Results Past 24 Hours Test 06/21/17 16:20 06/21/17 16:31 Range/Units White Blood Count 7.26 4.8-10.8 K/uL Red Blood Count 4.48 4.2-5.4 M/uL Hemoglobin 12.8 12.0-16.0 g/dL Hematocrit 38.6 37-47 % Mean Corpuscular Volume 86.2 80-100 fL Mean Corpuscular Hemoglobin 28.6 25-34 pg Mean Corpuscular Hemoglobin Concent 33.2 32-36 g/dl Platelet Count 261 130-400 K/uL Mean Platelet Volume 10.6 7.4-10.4 fL Neutrophils (%) (Auto) 80.1 % Lymphocytes (%) (Auto) 12.9 % Monocytes (%) (Auto) 6.1 % Eosinophils (%) (Auto) 0.0 % Basophils (%) (Auto) 0.1 % Neutrophils # (Auto) 5.81 1.4-6.5 K/uL Lymphocytes # (Auto) 0.94 1.2-3.4 K/uL Monocytes # (Auto) 0.44 0.11-0.59 K/uL Eosinophils # (Auto) 0.00 0-0.5 K/uL Basophils # (Auto) 0.01 0-0.2 K/uL RDW Standard Deviation 48.1 36.4-46.3 fL RDW Coefficient of Variation 15.2 11.5-14.5 % Immature Granulocyte % (Auto) 0.8 % Immature Granulocyte # (Auto) 0.06 0.00-0.02 K/uL Prothrombin Time 10.8 9.0-12.0 SECONDS Prothromb Time International Ratio 1.0 0.9-1.1 Activated Partial Thromboplast Time 25.2 21.0-31.0 SECONDS Partial Thromboplastin Ratio 1.0 Sodium Level 143 136-145 mmol/L Potassium Level 2.9 3.5-5.1 mmol/L Chloride Level 106 98-107 mmol/L Carbon Dioxide Level 30 21-32 mmol/L Anion Gap 7.0 3-11 mmol/L Blood Urea Nitrogen 11 7-18 mg/dl Creatinine 0.85 0.60-1.20 mg/dl Est Creatinine Clear Calc Drug Dose 90.2 ml/min Estimated GFR () 86.3 Estimated GFR (Non- 74.5 BUN/Creatinine Ratio 13.0 10-20 Random Glucose 133 70-99 mg/dl Calcium Level 8.3 8.5-10.1 mg/dl Magnesium Level 1.8 1.8-2.4 mg/dl Total Bilirubin 0.3 0.2-1 mg/dl Aspartate Amino Transf (AST/SGOT) 13 15-37 U/L Alanine Aminotransferase (ALT/SGPT) 20 12-78 U/L Alkaline Phosphatase 89 45-117 U/L Total Creatine Kinase 79 26-192 U/L Creatine Kinase MB 0.8 0.5-3.6 ng/ml Creatine Kinase MB Ratio 1.0 0-3.0 Troponin I < 0.015 0-0.045 ng/ml Pro-B-Type Natriuretic Peptide 857 0-900 pg/ml Total Protein 6.5 6.4-8.2 gm/dl Albumin 3.2 3.4-5.0 gm/dl Globulin 3.3 2.5-4.0 gm/dl Albumin/Globulin Ratio 1.0 0.9-2 Thyroid Stimulating Hormone (TSH) 0.426 0.300-4.500 uIu/ml Influenza Type A Antigen Neg for Influ A NEG Influenza Type B Antigen Neg for Influ B NEG Bedside D-Dimer 327 0-450 ng/mlFEU Bedside Troponin I < 0.030 0-0.045 ng/ml Diagnostic Radiology CHEST ONE VIEW PORTABLE CLINICAL HISTORY: 62 years-old Female presenting with dyspnea. TECHNIQUE: Portable upright AP view of the chest was obtained. COMPARISON: 12/17/2016. FINDINGS: Atherosclerosis of aortic arch. Cardiac silhouette mildly enlarged. Mildly prominent pulmonary vasculature comparison to prior. Minimal basilar opacities. No pleural effusion or pneumothorax. Osseous structures normal. Upper abdomen normal. IMPRESSION: 1. Minimal bibasilar opacities likely atelectasis. 2. Mild cardiomegaly and suggestion of mild volume overload. No astrid pulmonary edema. Electronically signed by: Vikram Matta M.D. 06/21/2017 4:08 PM Dictated Date/Time: 06/21/2017 4:07 PM The status of this report is Signed. Draft = Not yet reviewed or approved by Radiologist. Signed = Reviewed and approved by Radiologist. EKG CHARLIE MORA ID:[id number] 21-JUN-2017 16:26:35 [facility], [place] Normal sinus rhythm Minimal voltage criteria for LVH, may be normal variant Borderline ECG When compared with ECG of 09-JUL-2016 18:13, No significant change was found 25mm/s 10mm/mV 150Hz 8.0 SP2 12SL 241 SCOTT: 3 Referred by: Rosalva Lane Unconfirmed Vent. rate [address] interval 148 ms QRS duration 80 ms QT/QTc 396/465 ms P-R-T axes 26 -7 11 1955 (62 yr) Female 110in 1lb Room: Loc:15 Religious Studies Professor:ANDREAS Mahoney ind: Impression Assessment and Plan Patient is a pleasant 62 y/o female, with PMHx of asthma, nonischemic cardiomyopathy, diastolic CHF, HTN, depression/anxiety, and GERD, who presented to the ED because of worsening SOB. Acute asthma exacerbation- follows w/ Dr. Canada: - Admit to med/surg - O2 protocol - CXR w/out acute infectious process- will continue Levaquin 500 mg daily- treatment started on 06/19 - Sputum culture pending - d-dimer negative - DuoNeb GUILLERMO and PRN for SOB, flutter valve, incentive spirometer - Mucinex 600 mg BID - Continue home inhalers and Montelukast - Received 125 mg IV SoluMedrol in ED; Continue IV 60 mg BID - Consult pulmonary, appreciate recommendations Hypokalemia at 2.9: Replace w/ 40 mEq KCL supplement x1 now and continue 20 mEq KCL daily; follow PRP and replace PRN Nonischemic cardiomyopathy, diastolic CHF, HTN- follows w/ Dr. Del Castillo: Continue Lasix 20 mg daily, Losartan 25 mg daily, Metoprolol 25 mg daily Anxiety/depression: Continue Xanax 0.25 mg BID PRN, Zoloft 50 mg daily GERD: Continue Protonix + Zantac DVT prophylaxis: Lovenox SQ daily Code Status: LEVEL I, FULL Dispo: From home, lives w/ - no discharge needs anticipated I personally interviewed and examined the patient. I agree with history of present illness and physical exam mentioned above, I also performed my own history taking and examination. Past medical history and review of system has been obtained by myself I reviewed all pertinent labs and studies Reviewed current medications I discussed and formulated of the assessment and plan mentioned above. Please refer to the Summary mentioned below. Agree With Miss. Zelaya's plan 62/F w PMHx asthma, diastolic CHF,HTN p/w SOB General Appearance: not in acute distress Eyes: normal Sclerae, extraocular muscle intact ENT: hearing grossly normal Neck: supple Respiratory/Chest: decreased air entry bilateral ,no severe respiratory distress, no accessory muscle use but on arrival she might have have it, currently she is comfortable on O2 Cardiovascular: regular rate, rhythm, no murmur Abdomen: non tender, soft, no masses Extremities: no edema Neurologic/Psychiatric: Awake alert oriented times place and person moves all extremities sensation intact cranial nerves II-12 appear to be intact Skin: normal color, warm/dry, no rash Assessment Continue Levaquin as discussed with patient Will add Lactinex for C. difficile prophylaxis Continue supportive care Liters/steroids Level of Care Med/Surg Resuscitation Status FULL RESUSCITATION VTE Prophylaxis Given or contraindicated: Enoxaparin (Lovenox)SQ, T.E.D. Stockings, SCD's
[2017-06-21] MEDS: ALBUT/IPRATROP 3MG/0.5MG NEB 3 ML VIAL INH SCH (20:00)
--- NOTE | 2017-06-21 20:35 | NUR ---
A: ARRIVED FROM ED TO ROOM 459 FROM ED AT THIS TIME. ORIENTED TO ROOM/CALL [facility]. SIGNED CODE WORD AND FALL AGREEMENT FORMS. OOB W/ STEADY GAIT. CASTRO. VSS ON 2L 02 NC. RESEARCH LAB ASSISTANT COUGH. LS COURSE/WHEEZY. MRSA SWAB SENT TO LAB. CALLED [facility] FOR DINNER TRAY.SEE EMR FOR COMPLETE ADM ASSESSMENT. CALL [facility] IN REACH. PRIMARY RN TO CONTINUE PT CARE.
[2017-06-21 20:56] VITALS: BP 147/84; PULSE 79; TEMP 36.3; O2SAT 94; Ht 170.2 cm; Wt 108.6 kg
[2017-06-21] MEDS ORDERED: POTASSIUM CHLORIDE 20 MEQ TABCR PO ONE (21:00)
[2017-06-21] MEDS: GUAIFENESIN 600 MG TABCR PO SCH (21:22)
[2017-06-21] MEDS: ENOXAPARIN 40 MG/0.4 ML SYR SQ SCH (21:23)
[2017-06-21] MEDS: FUROSEMIDE 20 MG TAB PO SCH (21:23)
[2017-06-21] MEDS: MONTELUKAST SOD 10 MG TAB PO SCH (21:23)
[2017-06-21 23:55] VITALS: BP 138/76; PULSE 85; TEMP 36.8; O2SAT 94
[2017-06-22] VITALS (8 sets, daily range): BP systolic 125–153; BP diastolic 79–97; PULSE 78–109; TEMP 36.7–37; O2SAT 90–93
[2017-06-22] MEDS ORDERED: METHYLPREDNISOLONE IV 60 MG in SYRINGE 0 ML IV SCH (04:00)
[2017-06-22 07:04] LABS: HEMATOCRIT 37.8 % (37-47); HEMOGLOBIN 12.7 g/dL (12.0-16.0); MEAN CELL VOLUME 86.5 fL (80-100); MEAN CORPUSCULAR HEMOGLOBIN 29.1 pg (25-34); MEAN CORPUSCULAR HGB CONC 33.6 g/dl (32-36); MEAN PLATELET VOLUME 10.4 fL (7.4-10.4); PLATELET COUNT 260 K/uL (130-400); RED CELL DISTRIBUTION WIDTH CV 15.3 % (11.5-14.5); RED CELL DISTRIBUTION WIDTH SD 49.1 fL (36.4-46.3); WHITE BLOOD COUNT 7.76 K/uL (4.8-10.8)
[2017-06-22] MEDS: ALBUT/IPRATROP 3MG/0.5MG NEB 3 ML VIAL INH SCH ×4 (07:22→19:13)
[2017-06-22 07:41] LABS: CALCIUM 8.8 mg/dl (8.5-10.1); CREATININE 0.87 mg/dl (0.60-1.20); POTASSIUM 3.3 mmol/L (3.5-5.1)
[2017-06-22] MEDS ORDERED: METOPROLOL SUCC 25MG EXT REL TAB PO SCH (08:00)
[2017-06-22] MEDS: LOSARTAN POTASSIUM 25 MG TAB PO SCH (08:04)
[2017-06-22] MEDS: POTASSIUM CHLORIDE 20 MEQ TABCR PO SCH (08:05)
[2017-06-22] MEDS: LEVOFLOXACIN 500 MG TAB PO SCH (08:05)
[2017-06-22] MEDS: PANTOprazole SOD 40 MG TAB PO SCH (08:06)
[2017-06-22] MEDS: SERTRALINE HCL 50 MG TAB PO SCH (08:07)
[2017-06-22] MEDS: GUAIFENESIN 600 MG TABCR PO SCH ×2 (08:07→19:47)
[2017-06-22] MEDS: FUROSEMIDE 20 MG TAB PO SCH ×2 (08:07→16:54)
[2017-06-22] MEDS ORDERED: POTASSIUM CHLORIDE 10 MEQ TABCR PO ONE (09:15)
[2017-06-22] MEDS ORDERED: FUROSEMIDE INJ 40 MG in SYRINGE 0 ML IV ONE (12:15)
--- NOTE | 2017-06-22 12:41 | Hospitalist Progress Note ---
Hospitalist Progress Note Date of Service Jun 22, 2017. (Amanda Mathews ., JOEL) Subjective Pt evaluation today including: conversation w/ patient, conversation w/ family , physical exam, chart review, lab review, review of inpatient medication list Voiding: no voiding problems Ms. Carreon is feeling less sob today than yesterday. She has been having asthma exacerbations since before . She recently felt some chills and under the weather but no fever, no URI symptoms. She also feels that her symptoms have worsened since switched from coreg to metoprolol and is unsure why she was switched. She continues to have a cough with small amount of sputum production, she is not wheezing. She continues to require 2L NC which she does not wear at home. Her chest hurts when she coughs and she has intermittent frontal headache. Over the weekend she had increased edema in her lower extremities so she doubled her lasix which helped to bring down the swelling. She has also been orthopneic. ROS Constitutional: see HPI Respiratory: see HPI Cardiac: see HPI GI: no abdominal pain, nausea, vomiting, diarrhea or constipation : no dysuria or hesitancy Extremities: no joint pain or weakness Skin: no rash All Other Systems: Reviewed and Negative (Amanda Mathews .JOEL) Medications Medications (Trade) Dose Ordered Sig/Db Route Start Time Stop Time Status Last Admin Dose Admin Albuterol/ Ipratropium (Duoneb) 12 ml ONE STAT INH 06/21/17 15:53 06/21/17 15:57 DC 06/21/17 16:31 12 ML Methylprednisolone Sodium Succinate (Solu-Medrol IV) 125 mg NOW STAT IV 06/21/17 15:53 06/21/17 15:57 DC 06/21/17 16:31 125 MG Enoxaparin Sodium (Lovenox Inj) 40 mg Q24H SQ 06/21/17 22:00 07/21/17 21:59 06/21/17 21:23 40 MG Potassium Chloride (Klor-Con Tab) 40 meq 2100 ONCE PO 06/21/17 21:00 06/21/17 21:01 DC 06/21/17 21:22 40 MEQ Methylprednisolone Sodium Succinate 60 mg/Syringe 0.96 ml @ 1.5 mls/min BID@0400,1600 IV 06/22/17 04:00 07/22/17 03:59 06/22/17 04:01 1.5 MLS/MIN Albuterol/ Ipratropium (Duoneb) 3 ml QIDR INH 06/21/17 20:00 07/21/17 19:59 06/22/17 11:32 3 ML Guaifenesin (Mucinex Contr Rel Tab) 600 mg Q12 PO 06/21/17 21:00 07/21/17 20:59 06/22/17 08:07 600 MG Furosemide (Lasix Tab) 20 mg BID17 PO 06/21/17 21:00 07/21/17 20:59 06/22/17 08:07 20 MG Levofloxacin (Levaquin Tab) 500 mg DAILY PO 06/22/17 08:00 06/29/17 08:59 06/22/17 08:05 500 MG Losartan Potassium (coZAAR TAB) 25 mg DAILY PO 06/22/17 08:00 07/22/17 08:59 06/22/17 08:04 25 MG Metoprolol Succinate (Toprol Xl Tab) 25 mg DAILY PO 06/22/17 08:00 06/22/17 12:05 DC 06/22/17 08:06 25 MG Montelukast Sodium (Singulair Tab) 10 mg QPM PO 06/21/17 21:00 07/21/17 20:59 06/21/17 21:23 10 MG Pantoprazole Sodium (Protonix Tab) 40 mg QAM PO 06/22/17 08:00 07/22/17 08:59 06/22/17 08:06 40 MG Sertraline HCl (Zoloft Tab) 50 mg QAM PO 06/22/17 08:00 07/22/17 08:59 06/22/17 08:07 50 MG Potassium Chloride (Klor-Con Tab) 20 meq QAM PO 06/22/17 08:00 07/22/17 08:59 06/22/17 08:05 20 MEQ Potassium Chloride (Klor-Con M10) 40 meq NOW ONCE PO 06/22/17 09:15 06/22/17 09:16 DC 06/22/17 10:50 40 MEQ (Amanda Mathews, JOEL) Objective Vital Signs Date Time Temp Pulse Resp B/P (MAP) Pulse Ox O2 Delivery O2 Flow Rate FiO2 06/22/17 11:32 83 14 92 Nasal Cannula 2.5 06/22/17 08:24 36.7 99 18 153/97 (115) 93 Nasal Cannula 2.5 06/22/17 08:00 Nasal Cannula 2.0 06/22/17 07:23 86 14 92 Nasal Cannula 2.5 06/22/17 00:00 Nasal Cannula 2.0 06/21/17 23:55 36.8 85 20 138/76 (96) 94 Nasal Cannula 2.0 06/21/17 20:56 36.3 79 24 147/84 94 Nasal Cannula 2.0 06/21/17 20:15 87 20 130/80 94 Nasal Cannula 2.0 06/21/17 18:25 87 20 135/78 93 Nasal Cannula 3.0 06/21/17 17:24 98 06/21/17 17:20 81 20 140/79 98 Nebulizer 8.0 06/21/17 16:41 71 06/21/17 16:32 73 16 92 Room Air 06/21/17 15:44 Room Air 06/21/17 15:40 37.0 81 20 175/100 92 Room Air (Amanda Mathews CRNP) Physical Exam Notes: General: no distress Eyes: normal inspection, PERLL Respiratory: chest non tender, expiratory wheezes throughout lung kulkarni to auscultation, no respiratory distress, no accessory muscle use Cardiac: regular rate and rhythm, no rub or gallop, no murmur, no edema, no jvd GI/: active bowel sounds, no abd pain or tenderness, soft, non distended Extremities: normal range of motion, normal strength, non tender Neuro/Psych: alert and oriented x 3, normal mood and affect Skin: normal color, dry (Amanda Mathews, JOEL) Laboratory Results Last 24 Hours Test 06/21/17 16:20 06/21/17 16:31 06/21/17 21:30 06/22/17 06:38 White Blood Count 7.26 K/uL 7.76 K/uL Red Blood Count 4.48 M/uL 4.37 M/uL Hemoglobin 12.8 g/dL 12.7 g/dL Hematocrit 38.6 % 37.8 % Mean Corpuscular Volume 86.2 fL 86.5 fL Mean Corpuscular Hemoglobin 28.6 pg 29.1 pg Mean Corpuscular Hemoglobin Concent 33.2 g/dl 33.6 g/dl Platelet Count 261 K/uL 260 K/uL Mean Platelet Volume 10.6 fL 10.4 fL Neutrophils (%) (Auto) 80.1 % Lymphocytes (%) (Auto) 12.9 % Monocytes (%) (Auto) 6.1 % Eosinophils (%) (Auto) 0.0 % Basophils (%) (Auto) 0.1 % Neutrophils # (Auto) 5.81 K/uL Lymphocytes # (Auto) 0.94 K/uL Monocytes # (Auto) 0.44 K/uL Eosinophils # (Auto) 0.00 K/uL Basophils # (Auto) 0.01 K/uL RDW Standard Deviation 48.1 fL 49.1 fL RDW Coefficient of Variation 15.2 % 15.3 % Immature Granulocyte % (Auto) 0.8 % Immature Granulocyte # (Auto) 0.06 K/uL Prothrombin Time 10.8 SECONDS Prothromb Time International Ratio 1.0 Activated Partial Thromboplast Time 25.2 SECONDS Partial Thromboplastin Ratio 1.0 Sodium Level 143 mmol/L 142 mmol/L Potassium Level 2.9 mmol/L 3.3 mmol/L Chloride Level 106 mmol/L 106 mmol/L Carbon Dioxide Level 30 mmol/L 31 mmol/L Anion Gap 7.0 mmol/L 5.0 mmol/L Blood Urea Nitrogen 11 mg/dl 12 mg/dl Creatinine 0.85 mg/dl 0.87 mg/dl Est Creatinine Clear Calc Drug Dose 90.2 ml/min 87.8 ml/min Estimated GFR () 86.3 83.9 Estimated GFR (Non- 74.5 72.4 BUN/Creatinine Ratio 13.0 14.0 Random Glucose 133 mg/dl 140 mg/dl Calcium Level 8.3 mg/dl 8.8 mg/dl Magnesium Level 1.8 mg/dl Total Bilirubin 0.3 mg/dl Aspartate Amino Transf (AST/SGOT) 13 U/L Alanine Aminotransferase (ALT/SGPT) 20 U/L Alkaline Phosphatase 89 U/L Total Creatine Kinase 79 U/L Creatine Kinase MB 0.8 ng/ml Creatine Kinase MB Ratio 1.0 Troponin I < 0.015 ng/ml Pro-B-Type Natriuretic Peptide 857 pg/ml Total Protein 6.5 gm/dl Albumin 3.2 gm/dl Globulin 3.3 gm/dl Albumin/Globulin Ratio 1.0 Thyroid Stimulating Hormone (TSH) 0.426 uIu/ml Hepatitis C Antibody Screen NEG Influenza Type A Antigen Neg for Influ A Influenza Type B Antigen Neg for Influ B Bedside D-Dimer 327 ng/mlFEU Bedside Troponin I < 0.030 ng/ml Urine Color YELLOW Urine Appearance CLEAR Urine pH 5.5 Urine Specific [place] 1.026 Urine Protein NEG Urine Glucose (UA) NEG Urine Ketones NEG Urine Occult Blood NEG Urine Nitrite NEG Urine Bilirubin NEG Urine Urobilinogen NEG Urine Leukocyte Esterase SMALL Urine WBC (Auto) 1-5 /hpf Urine RBC (Auto) 0-4 /hpf Urine Hyaline Casts (Auto) 1-5 /lpf Urine Epithelial Cells (Auto) >30 /lpf Urine Bacteria (Auto) NEG (Amanda Mathews CRNP) Assessment and Plan Ms. Carreon is a 62 year old woman here for asthma exacerbation Asthma exacerbation/non- ischemic cardiomyopathy/diastolic CHF/ htn - Grade 1 diastolic heart failure with EF 55-60% on most recent Echo this year - continue Solu-medrol, nebs, guaifenesin, Levaquin, montelukast - given mild pulmonary edema, orthopnea and description of lower extremity edema previous to coming in to the ED, may be an element of fluid overload to symptoms so one time dose of 40 IV lasix given in addition to bid po lasix - patient on room air following lasix administration - Discussed with Dr. Del Castillo who sees patient in the office concerning worsening symptoms on metoprolol and he felt it was reasonable to try her back on the Coreg to see if symptoms improved - d/c'd metoprolol and changed to 3.125 mg bid Coreg per her outpatient records - continue losartan - Appreciate pulm recs Hypokalemia - replaced with 60 mg po this am for K of 3.3 Anxiety/depression: Continue Xanax 0.25 mg BID PRN, Zoloft 50 mg daily GERD: Continue Protonix + Zantac DVT prophylaxis: Lovenox SQ daily Full code (Amanda Mathews CRNP) Reviewed: Pt Seen/Exam by Me (Cassy Rivera MD) History HAND SPRAYER Supervision Note: I interviewed and examined the patient. Discussed with JOEL Mathews and agree with findings and plan as documented in the note. Any exceptions or clarifications are listed here: Pt admitted yesterday for acute hypoxemic respiratory failure likely secondary to acute asthma exacerbation and acute on chronic diastolic CHF. SHe reports feeling much improved this evening after receiving IV lasix, IV steroids since admission. SHe is diuresing quite well and is now weaned off O2. She reports frequent prednisone tapers over the last 2 months and a 30 lb weight gain since Mar 2017. Vitals reviewed NAD, obese, speaking in rapid, fluent sentences without any resp distress RRR no mgr Lungs with one exp wheeze at left base, otherwise clear and moving air quite well Abd +BS soft NT ND Ext no edema, no calf tenderness Pt is a 62 yo female with a h/o previous nonischemic CM (LVEF 25% as per pt) that has resolved, chronic diastolic CHF, HTN, asthma and restrictive lung disease, GERD, severe Vit D deficiency, anxiety/depression, and OA, here with acute hypoxemic resp failure, acute on chronic diastolic CHF, and acute asthma exacerbation. I suspect multiple rounds of prednisone have contributed to her fluid retention , pulm edema on CXR, and rapid weight gain in the last 2 months. -continue IV lasix 20mg IV bid -wean steroids down as tolerated -Pulm added on Flovent bid which I agree with (had been on samples of Pulmicort as outpt but ran out) -continue Spiriva that was recently started 2 weeks ago-although no indication for asthma necessarily -ok to finish out 7 day course po Levaquin -continue ARB, change beta lulu back to Coreg in the morning as she already received her Toprol XL today--> consider switching to bisoprolol if beta blockers continue to be suspected as culprit for exacerbating her reactive airway disease -added daily weights, I/Os, and changed to low Na+ diet, counseled on the same Documented By: Cassy Rivera (Cassy Rivera MD)
[2017-06-22] MEDS ORDERED: LSX20 PO (17:06)
--- NOTE | 2017-06-22 19:00 | NUR ---
ID: Pt. independent with adl's. Independent with ambulation. LS are course throughout. Ate 100% of meal. IV steroids given per MD order. Spo2 93% on room air. Pt. noted to have a NPC, encouraged to cough and deep breath. D/C undetermined at this time, will continue to monitor.
--- NOTE | 2017-06-22 19:30 | PULMONARY CONSULTATION ---
DATE OF CONSULTATION: 06/22/2017 TIME: 2:50 p.m. LOCATION: The patient was seen in room #459, bed #2. HISTORY OF PRESENT ILLNESS: She is a 62-year-old female who has a history of asthma for 3 or 4 years. Her breathing has gotten progressively worse over the past 1 year. She had previously been hospitalized in May of 2014 with respiratory failure. It was thought to be due to pneumonia at that time. She was then hospitalized in June of 2015. Her diagnosis at that time was asthma exacerbation. She subsequently was admitted in June of 2016 with an asthma exacerbation. At that time, she did have an elevated eosinophil percent at 15.7. She then had outpatient exacerbations of asthma in November, January, and March of 2017. She has been having worsening symptoms since approximately June 09. I have seen the patient once as an outpatient on April 15 and on that date, she actually was doing well. She had a mild obstructive pattern on pulmonary functions with an FEV1/FVC ratio of 70% and she sounded well. We were making arrangements to have a sleep study done at that time as she had symptoms compatible with sleep apnea and her felt that she was stopping breathing when she sleeps. That study has not happened for a variety of reasons. The patient has been under a lot of stress. She has a [id number] who is critically ill and apparently terminal who is currently in [facility]. The patient was admitted yesterday. She feels somewhat better today. She still feels tight. For a few weeks, she has been unable to lie flat because of shortness of breath. She also has increased cough when she lays down. She typically has not brought up any phlegm until recently when she began to expectorate small quantities of mucus which has been yellow or white. She has not had any hemoptysis. She has had no chest pains, chills, fevers or sweats. The patient was allergy tested many years ago. She states she was told she had some allergies but never treated. She does not have any pets at home. 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 Although she has been ill, she had not missed any days of work this month because of her illness. The patient had previously had a bad reaction to Dulera. She states she had a lot of mouth sores and swelling of her mouth. She had been given a trial of Pulmicort and Asmanex but without significant clinical benefit. She does have a nebulizer at home which she uses albuterol/ipratropium. She has a history of reflux and she is on ranitidine with good benefit. PAST MEDICAL HISTORY: 1. Nonischemic cardiomyopathy - subsequently resolved to normal. 2. Questionable diastolic CHF. 3. Hypertension. 4. Anxiety. 5. Depression. 6. Reflux. PAST SURGICAL HISTORY: 1. Appendectomy. 2. Cholecystectomy. 3. Sinus surgery. 4. Tonsillectomy. 5. Knee surgery. PERTINENT FAMILY HISTORY: The patient's sister has severe COPD, stage IV. Otherwise, there is a family history of cancer, heart disease and hypertension. SOCIAL HISTORY: Tobacco - never. ETOH - None. ALLERGIES: LISTED ALLERGIES TO FORMOTEROL. I do not know exactly what reaction she had. LISTED ALLERGY TO MOMETASONE. LISTED ALLERGY TO KETOROLAC WELL LATEX. MEDICATIONS AT HOME: 1. Vitamin D3. 2. Furosemide 20 mg b.i.d. 3. Levaquin. 4. Losartan 25 mg daily. 5. Metoprolol 25 mg daily. 6. Montelukast 10 mg daily. 7. Pantoprazole 40 mg daily. 8. Ranitidine 300 mg at bedtime. 9. Sertraline 50 mg daily. 10. Spiriva Respimat 2 puffs daily. 11. Alprazolam 0.25 b.i.d. p.r.n. 12. Albuterol/ipratropium by nebulizer p.r.n. 13. Naproxen 500 mg p.r.n. pain. REVIEW OF SYSTEMS: Negative except for the above-mentioned complaints. The patient denies any heartburn, nausea, vomiting, diarrhea, joint pains, etc. or other complaints. Ten systems reviewed. PHYSICAL EXAMINATION: GENERAL: The patient is a 62-year-old female who was cooperative, alert and oriented. She was in no distress. Weight is 109.8 kilograms. BMI is 37.9. HEENT: Pupils were reactive to light. Nares were clear. Mouth exam was unremarkable. NECK: Palpation of the neck reveals no lymph nodes. VITAL SIGNS: Temperature is 36.7. Heart rate was 83 per minute. The rhythm was regular. Blood pressure 153/97. CHEST: Auscultation of the lung kulkarni revealed mildly decreased breath sounds. There was coarse wheezes heard with forced expiration. This was heard bilaterally. There was marked prolongation to the expiratory phase of respirations. Saturation was 92% on 2.5 liters of oxygen. ABDOMEN: Soft. Bowel sounds were present. There was no tenderness to palpation, masses, or organomegaly. EXTREMITIES: Showed no cyanosis, clubbing or edema. The patient claimed that she had some edema a few days ago. IMAGING DATA: The patient had a chest x-ray at the time of admission that showed mild cardiomegaly with the possibility of mild fluid overload. LABORATORY DATA: Admission white count was 7.26, hemoglobin 12.8, and platelets 261,000. Eosinophil was 0. Coags were normal. D-dimer was normal at 327. Urinalysis was unremarkable. Electrolytes show sodium 142, potassium 3.3, chloride 109, and bicarbonate 31. BUN was 12 with a creatinine of 0.87. Random sugar was 140. Troponin was negative. ProBNP was 857; this would be within the limits of normal for her age. TSH was normal at 0.426. IMPRESSION: 1. Asthma with exacerbation. 2. Obstructive sleep apnea. 3. Gastroesophageal reflux disease. 4. Anxiety/depression. COMMENTS AND RECOMMENDATIONS: The patient is a difficult management case. She has had recurring symptoms, especially in the past 1 year. Her prior hospitalizations would suggest she is worse in the winter as most of her other hospital stays have been in Mik or June. Ideally, I would like her to be on an inhaled steroid. Prednisone helped, so one would expect the inhaled steroid to help. She did not notice benefit from Pulmicort or Asmanex, but perhaps there were other factors. Will consider trial of Flovent as an alternative. I would keep her steroids as they are currently. They are quite high dose at 60 t.i.d., but she has been having a lot of problems for several weeks. Would continue with levofloxacin. Apparently, Spiriva is not available in the hospital and her family is to bring in her Spiriva Respimat. She has not had any eosinophil counts except for the one mentioned above. It could these are suppressed by the steroid she has been. She has been on a lot of prednisone recently. Her reflux would seem to be adequately treated. She has had a negative CTA in November of this year. As noted, her D-dimer is normal, and there is very little chance she has pulmonary emboli, based upon both of these findings. She may need to have the prednisone tapered, but not totally discontinued. I reviewed with her her home status. It does not seem like there was anything at home that would be likely contributing to her asthma symptoms. Thank you for asking me to assist in her care.
[2017-06-22] MEDS: FLUTICASONE HFA 220 MCG INHALER INH SCH (19:45)
[2017-06-22] MEDS: METHYLPREDNISOLONE IV 60 MG in SYRINGE 0 ML IV SCH (19:46)
[2017-06-22] MEDS: MONTELUKAST SOD 10 MG TAB PO SCH (19:47)
[2017-06-22] MEDS: ENOXAPARIN 40 MG/0.4 ML SYR SQ SCH (19:48)
[2017-06-22] MEDS ORDERED: CARVEDILOL 3.125 MG TAB PO SCH (20:00)
[2017-06-23] VITALS (10 sets, daily range): BP systolic 115–164; BP diastolic 79–95; PULSE 74–99; TEMP 36.8–37; O2SAT 89–92
[2017-06-23 06:25] LABS: HEMATOCRIT 40.2 % (37-47); HEMOGLOBIN 13.5 g/dL (12.0-16.0); MEAN CELL VOLUME 86.6 fL (80-100); MEAN CORPUSCULAR HEMOGLOBIN 29.1 pg (25-34); MEAN CORPUSCULAR HGB CONC 33.6 g/dl (32-36); MEAN PLATELET VOLUME 10.7 fL (7.4-10.4); PLATELET COUNT 263 K/uL (130-400); RED CELL DISTRIBUTION WIDTH CV 15.4 % (11.5-14.5); WHITE BLOOD COUNT 11.41 K/uL (4.8-10.8)
[2017-06-23 07:01] LABS: CALCIUM 8.9 mg/dl (8.5-10.1); CREATININE 0.89 mg/dl (0.60-1.20); POTASSIUM 3.8 mmol/L (3.5-5.1)
[2017-06-23] MEDS: ALBUT/IPRATROP 3MG/0.5MG NEB 3 ML VIAL INH SCH ×4 (07:24→18:44)
[2017-06-23] MEDS: ACETAMINOPHEN 325 MG TAB PO PRN (08:13)
[2017-06-23] MEDS: CARVEDILOL 3.125 MG TAB PO SCH ×2 (08:14→21:05)
[2017-06-23] MEDS: METHYLPREDNISOLONE IV 60 MG in SYRINGE 0 ML IV SCH (08:14)
[2017-06-23] MEDS: BENZONATATE 100MG CAP PO PRN ×2 (08:14→23:32)
[2017-06-23] MEDS: CHOLECALCIFEROL 1000 INTER.UNIT TAB PO SCH (08:15)
[2017-06-23] MEDS: POTASSIUM CHLORIDE 20 MEQ TABCR PO SCH (08:15)
[2017-06-23] MEDS: GUAIFENESIN 600 MG TABCR PO SCH ×2 (08:16→21:05)
[2017-06-23] MEDS: LEVOFLOXACIN 500 MG TAB PO SCH (08:16)
[2017-06-23] MEDS: PANTOprazole SOD 40 MG TAB PO SCH (08:17)
[2017-06-23] MEDS: FLUTICASONE HFA 220 MCG INHALER INH SCH ×2 (08:17→21:05)
[2017-06-23] MEDS: SERTRALINE HCL 50 MG TAB PO SCH (08:17)
[2017-06-23] MEDS: LOSARTAN POTASSIUM 25 MG TAB PO SCH (08:17)
[2017-06-23] MEDS: FUROSEMIDE INJ 20 MG in SYRINGE 0 ML IV SCH ×2 (08:18→16:41)
[2017-06-23] MEDS: TIOTROPIUM BROMIDE 5 PUFF/90 MCG INH INH SCH (08:18)
[2017-06-23] MEDS ORDERED: FUROSEMIDE 40 MG TAB PO SCH (09:00)
--- NOTE | 2017-06-23 10:59 | PULMONARY PROGRESS NOTE ---
DATE: 06/23/2017 TIME: 10:35 a.m. SUBJECTIVE: The patient feels a little less tight in the chest. She states she had a severe cough all might. She has had a headache in the frontal areas. She is having significant quantities of yellow green sputum through her nose. This would raise the possibility of sinusitis. This could be contributing to her underlying issue. She indicates she has had 2 prior sinus surgeries. Her breathing is overall only mildly better than prior. OBJECTIVE: GENERAL: The patient sounded congested nasally. She was coughing periodically. VITAL SIGNS: Temperature is 36.8. She has had no fevers in the last 48 hours at least. Heart rate was 74 per minute. The rhythm is regular. Blood pressure 163/90. EARS, NOSE, AND THROAT: Exam is unremarkable. LUNGS: Lung kulkarni again reveal wheeze and rhonchi bilaterally posteriorly with prolongation to the expiratory phase of respiration. Oxygen saturation is 92% on room air. EXTREMITIES: Showed no cyanosis, clubbing or edema. LABORATORY DATA: White count today is 11.41. This is increased from 7.76. This could be due to the steroids. Hemoglobin is 13.5 and platelets are 263,000. Electrolytes show sodium 142, potassium 3.8, chloride 105, and bicarbonate 31. BUN is 19 with a creatinine of 0.89. Nasal swab was negative for MRSA. IMPRESSIONS: 1. Asthma with exacerbation. 2. Rule out sinusitis. COMMENTS AND RECOMMENDATIONS: We will order a CT of the sinuses. I will decrease the dose of the methylprednisolone somewhat. The patient is clearly not ready for discharge at present. Would continue otherwise.
--- NOTE | 2017-06-23 11:09 | NUR ---
ID Note: Patient is alert and oriented x4, lungs are coarse on room air, denies SOB or CP. Does verbalize some CASTRO. Moist non-productive cough present. Unable to produce sputum sample yet. Verbalizes a headache, requested Tylenol, states "it feels like its pressure in my sinuses, and it's giving me a headache". Patient is blowing her nose, verbalizes that it is yellow colored in tissue, not witnessed by staff yet. Patient is independent in room, able to ambulate to bathroom. IV in right forearm is saline locked. Discharge plans uncertain at this time. Call whitman in reach, bed in lowest position, will continue to monitor.
--- NOTE | 2017-06-23 12:45 | Hospitalist Progress Note ---
Hospitalist Progress Note Date of Service Jun 23, 2017. (Amanda Mathews .JOEL) Subjective Pt evaluation today including: conversation w/ patient, physical exam, chart review, lab review, review of inpatient medication list Voiding: no voiding problems Ms. Carreon feels a bit better today though she is still wheezing and short of breath. She is off supplemental oxygen and her sats are 89-92%. She is experiencing sinus pressure and headaches and continues to cough small amounts of yellow sputum. ROS Constitutional: no chills, aches, sweats or fever Respiratory: see HPI Cardiac: no chest pain, palpitations, edema, orthopnea or lightheadedness GI: no abdominal pain, nausea, vomiting, diarrhea or constipation : no dysuria or hesitancy Extremities: no joint pain or weakness Skin: no rash All Other Systems: Reviewed and Negative (Amanda Mathews CRNP) Medications Medications (Trade) Dose Ordered Sig/Db Route Start Time Stop Time Status Last Admin Dose Admin Methylprednisolone Sodium Succinate 60 mg/Syringe 0.96 ml @ 1.5 mls/min TID IV 06/22/17 20:00 06/23/17 10:44 DC 06/23/17 08:14 1.5 MLS/MIN Fluticasone Propionate (Flovent Hfa 220MCG Inhaler) 2 puffs BID INH 06/22/17 20:00 07/22/17 19:59 06/23/17 08:17 2 PUFFS Carvedilol (Coreg Tab) 3.125 mg BID PO 06/23/17 08:00 07/22/17 19:59 06/23/17 08:14 3.125 MG Furosemide 20 mg/ Syringe 2 ml @ 4 mls/min BID17 IV 06/23/17 09:00 07/23/17 08:59 06/23/17 08:18 4 MLS/MIN Tiotropium [place] (Spiriva Handihaler Inhaler) 1 puff QAM INH 06/23/17 08:00 07/23/17 07:59 06/23/17 08:18 1 PUFF Cholecalciferol (Vitamin D Tab) 3,000 inter.unit QAM PO 06/23/17 08:00 07/23/17 07:59 06/23/17 08:15 3,000 INTER.UNIT Benzonatate (Tessalon Perles Cap) 100 mg TID PRN PO 06/23/17 00:30 07/23/17 00:29 06/23/17 08:14 100 MG (Amanda Mathews CRNP) Objective Vital Signs Date Time Temp Pulse Resp B/P (MAP) Pulse Ox O2 Delivery O2 Flow Rate FiO2 06/23/17 11:09 88 16 89 Room Air 06/23/17 08:30 92 Room Air 06/23/17 07:39 36.8 74 18 163/90 (114) 92 Room Air 164/90 (114) 06/23/17 07:24 84 16 89 Room Air 06/22/17 23:38 36.9 82 20 148/91 (110) 90 Room Air 06/22/17 23:20 Room Air 06/22/17 19:13 109 16 93 Room Air 06/22/17 16:14 78 14 93 Nasal Cannula 06/22/17 16:00 93 Room Air 06/22/17 15:09 37.0 89 18 125/79 (94) 91 Room Air (Amanda Mathews CRNP) Physical Exam Notes: General: no distress Eyes: normal inspection, PERLL Respiratory: chest non tender, expiratory wheezes throughout L>R, no respiratory distress, no accessory muscle use Cardiac: regular rate and rhythm, no rub or gallop, no murmur, no edema, no jvd GI/: active bowel sounds, no abd pain or tenderness, soft, non distended Extremities: normal range of motion, normal strength, non tender Neuro/Psych: alert and oriented x 3, normal mood and affect Skin: normal color, dry (Amanda Mathews CRNP) Laboratory Results Last 24 Hours Test 06/23/17 06:11 White Blood Count 11.41 K/uL Red Blood Count 4.64 M/uL Hemoglobin 13.5 g/dL Hematocrit 40.2 % Mean Corpuscular Volume 86.6 fL Mean Corpuscular Hemoglobin 29.1 pg Mean Corpuscular Hemoglobin Concent 33.6 g/dl RDW Standard Deviation 49.0 fL RDW Coefficient of Variation 15.4 % Platelet Count 263 K/uL Mean Platelet Volume 10.7 fL Sodium Level 142 mmol/L Potassium Level 3.8 mmol/L Chloride Level 105 mmol/L Carbon Dioxide Level 31 mmol/L Anion Gap 6.0 mmol/L Blood Urea Nitrogen 19 mg/dl Creatinine 0.89 mg/dl Est Creatinine Clear Calc Drug Dose 85.8 ml/min Estimated GFR () 81.6 Estimated GFR (Non- 70.4 BUN/Creatinine Ratio 21.8 Random Glucose 154 mg/dl Calcium Level 8.9 mg/dl Magnesium Level 2.2 mg/dl (Amanda Mathews CRNP) Assessment and Plan Ms. Carreon is a 62 year old woman here for asthma exacerbation Asthma exacerbation/non- ischemic cardiomyopathy/diastolic CHF/ htn - Grade 1 diastolic heart failure with EF 55-60% on most recent Echo this year - continue nebs, guaifenesin, Levaquin, montelukast, solumedrol tapered per pulm - Spiriva and fluticasone started per pulm - continue IV lasix bid - edema and respiratory status improving - Discussed with Dr. Del Castillo who sees patient in the office concerning worsening symptoms on metoprolol and he felt it was reasonable to try her back on the Coreg to see if symptoms improved - d/c'd metoprolol and changed to 3.125 mg bid Coreg 06/22 per her outpatient records - continue losartan - Appreciate pulm recs Hyperglycemia - likely due to steroids - bsgs ac and hs, ss Hypokalemia - resolved Anxiety/depression: Continue Xanax 0.25 mg BID PRN, Zoloft 50 mg daily GERD: Continue Protonix + Zantac DVT prophylaxis: Lovenox SQ daily Full code (Amanda Mathews CRNP) Reviewed: Pt Seen/Exam by Me (Cassy Rivera MD) History [employer]PL[employer] Supervision Note: I interviewed and examined the patient. Discussed with JOEL Mathews and agree with findings and plan as documented in the note. Any exceptions or clarifications are listed here: Pt feeling sinus congestion and mild frontal [place] today relieved with tylenol. Blowing out some yellow mucus from nose. Coughed hard last night that caused pain in chest, now improved with Tessalon pearls. POx 89% on RA at rest at lowest Vitals reviewed NAD, obese RRR no mgr, no distress Lungs with scattered exp wheezes throughout, but moving air well Abd +BS soft NT ND Ext no edema, no calf tenderness Pt is a 62 yo female with a h/o previous nonischemic CM (LVEF 25% as per pt) that has resolved, chronic diastolic CHF, HTN, asthma and restrictive lung disease, GERD, severe Vit D deficiency, anxiety/depression, and OA, here with acute hypoxemic resp failure, acute on chronic diastolic CHF, and acute asthma exacerbation. Improved after receiving IV lasix, IV steroids since admission. SHe is diuresing and is now weaned off O2, but remains hypoxic to 89% at times She reports frequent prednisone tapers over the last 2 months and a 30 lb weight gain since Mar 2017. I suspect multiple rounds of prednisone have contributed to her fluid retention , pulm edema on CXR, and rapid weight gain in the last 2 months. Now with sinus symptoms despite being on Levaquin and steroids-could be viral URI -continue IV lasix 20mg IV bid, follow PRP -wean steroids down -Pulm added on Flovent bid which I agree with -continue Spiriva that was recently started 2 weeks ago-although no indication for asthma necessarily -ok to finish out 7 day course po Levaquin -continue ARB, changed metoprolol back to Coreg--> consider switching to bisoprolol if beta blockers continue to be suspected as culprit for exacerbating her reactive airway disease -continue daily weights, I/Os, and changed to low Na+ diet, counseled on the same -checking CT sinuses -will need 2 step prio to discharge perhaps in 1-2 days Documented By: Cassy Rivera (Cassy Rivera MD)
[2017-06-23] MEDS ORDERED: GLUCAGON FOR INJ 1 MG VIAL SQ PRN (13:45)
[2017-06-23] MEDS ORDERED: GLUCOSE 40% GEL 15 GM TUBE PO PRN (13:45)
[2017-06-23] MEDS ORDERED: GLUCOSE 10 TABS/TUBE PO PRN (13:45)
[2017-06-23] MEDS ORDERED: DEXTROSE 50% 50 ML SYR IV PRN (13:45)
--- NOTE | 2017-06-23 14:03 | DIAGNOSTIC IMAGING REPORT ---
SINUSES-MAXILLOFACIAL W/O CT DOSE: 273.21 mGycm HISTORY: Sinusitis symptoms of sinusitis. prior sinus surgery x2 TECHNIQUE: Multiaxial CT images of the paranasal sinuses were performed and reformatted in the coronal plane without the use of contrast. A dose lowering technique was utilized adhering to the principles of ALARA. COMPARISON: None. FINDINGS: Mastoid air cells show mild degree of sclerosis. The middle ear structures are generally intact. There are operative findings consistent with bilateral antral window placement as well as prior partial ethmoidectomy and middle nasal turbinate partial resection. There is considerable mucosal thickening of the residual ethmoid air cells and the maxillary sinuses, there is considerable hypertrophic change of the residual nasal turbinates at the mid and anterior aspects. The estimated units are occluded bilaterally. The antral windows are patent. Other orbital margins appear intact. There is moderate mucosal thickening of the inferior central aspect of the frontal sinuses. The orbits are unremarkable. IMPRESSION: 1. Considerable postoperative change consistent with bilateral antral window placement, partial ethmoidectomies, as well as partial resection of components of the nasal turbinates. 2. Considerable mucosal thickening of the residual maxillary and ethmoid sinuses and to a lesser extent the central frontal and sphenoid sinuses. 3. The rampart ostiomeatal units are occluded with the antral windows patent. 4. Mild sclerosis of the mastoid air cells The above report was generated using voice recognition software. It may contain grammatical, syntax or spelling errors. Electronically signed by: Renard Godinez M.D. 06/23/2017 2:02 PM Dictated Date/Time: 06/23/2017 1:59 PM
[2017-06-23] MEDS: METHYLPREDNISOLONE IV 40 MG in SYRINGE 0 ML IV SCH ×2 (14:24→21:05)
--- NOTE | 2017-06-23 14:51 | NUR ---
supervisor [facility]: Follow up appointment info added to the DC instructions - "Please, follow up with Dr. Lane on TuesdayJuly 04 at 9:20 am. *If you need to change this appointment you can call her office at [phone]. Please, follow up with Dr. Canada on TuesdayJuly 06 at 3:30 pm. *If you need to reschedule this appointment, you can call the office at [phone]."
[2017-06-23] MEDS: INSULIN ASPART 100 UNITS/ML 3 ML PEN SC SCH ×2 (16:46→21:14)
[2017-06-23] MEDS: ENOXAPARIN 40 MG/0.4 ML SYR SQ SCH (21:05)
[2017-06-23] MEDS: MONTELUKAST SOD 10 MG TAB PO SCH (21:05)
[2017-06-24] VITALS (9 sets, daily range): BP systolic 127–152; BP diastolic 76–95; PULSE 75–95; TEMP 36.8–37.1; O2SAT 90–95
--- NOTE | 2017-06-24 00:20 | NUR ---
ID: Pt is alert and oriented x4. Lungs clear on 2L NC. Independent OOB. Saline lock. Denies pain. Tolerating diet. Voiding in the bathroom without difficulty. Plan to discharge home when stable.
[2017-06-24] MEDS: ALBUT/IPRATROP 3MG/0.5MG NEB 3 ML VIAL INH SCH ×4 (07:04→19:14)
[2017-06-24 07:42] LABS: HEMATOCRIT 39.9 % (37-47); HEMOGLOBIN 13.1 g/dL (12.0-16.0); MEAN CELL VOLUME 86.4 fL (80-100); MEAN CORPUSCULAR HEMOGLOBIN 28.4 pg (25-34); MEAN CORPUSCULAR HGB CONC 32.8 g/dl (32-36); MEAN PLATELET VOLUME 10.4 fL (7.4-10.4); PLATELET COUNT 282 K/uL (130-400); RED CELL DISTRIBUTION WIDTH SD 47.9 fL (36.4-46.3); WHITE BLOOD COUNT 14.61 K/uL (4.8-10.8)
[2017-06-24] MEDS: INSULIN ASPART 100 UNITS/ML 3 ML PEN SC SCH ×4 (07:47→21:19)
[2017-06-24] MEDS: LEVOFLOXACIN 500 MG TAB PO SCH (07:49)
[2017-06-24] MEDS: METHYLPREDNISOLONE IV 40 MG in SYRINGE 0 ML IV SCH (07:49)
[2017-06-24] MEDS: FUROSEMIDE INJ 20 MG in SYRINGE 0 ML IV SCH (07:49)
[2017-06-24] MEDS: CHOLECALCIFEROL 1000 INTER.UNIT TAB PO SCH (07:49)
[2017-06-24] MEDS: GUAIFENESIN 600 MG TABCR PO SCH ×2 (07:49→20:23)
[2017-06-24] MEDS: POTASSIUM CHLORIDE 20 MEQ TABCR PO SCH (07:49)
[2017-06-24] MEDS: LOSARTAN POTASSIUM 25 MG TAB PO SCH (07:50)
[2017-06-24] MEDS: BENZONATATE 100MG CAP PO PRN (07:50)
[2017-06-24] MEDS: PANTOprazole SOD 40 MG TAB PO SCH (07:50)
[2017-06-24] MEDS: SERTRALINE HCL 50 MG TAB PO SCH (07:50)
[2017-06-24] MEDS: FLUTICASONE HFA 220 MCG INHALER INH SCH ×2 (07:50→20:22)
[2017-06-24] MEDS: CARVEDILOL 3.125 MG TAB PO SCH ×2 (07:51→20:25)
[2017-06-24] MEDS: TIOTROPIUM BROMIDE 5 PUFF/90 MCG INH INH SCH (07:51)
[2017-06-24 08:10] LABS: CALCIUM 8.8 mg/dl (8.5-10.1); CREATININE 0.83 mg/dl (0.60-1.20); POTASSIUM 3.4 mmol/L (3.5-5.1)
[2017-06-24] MEDS ORDERED: POTASSIUM CHLORIDE 10 MEQ TABCR PO ONE (08:45)
--- NOTE | 2017-06-24 10:06 | PULMONARY PROGRESS NOTE ---
DATE: 06/24/2017 TIME: 9:45 a.m. SUBJECTIVE: The patient feels better today. She is less short of breath. She feels her cough is more controllable. She is not having any sputum production of significance. OBJECTIVE: GENERAL: The patient appeared comfortable. She was coughing at times during the exam. EXAMINATION: VITAL SIGNS: Temperature is 36.8. EARS, NOSE, THROAT: Exam is unchanged. HEART: Heart rate was 84 per minute. The rhythm is regular. Blood pressure 152/95. CHEST: Lung kulkarni revealed scattered moderate rhonchi bilaterally posteriorly. There was prolongation to the expiratory phase of respiration. Respiratory rate was 18. Oxygen saturation was 95% on room air. EXTREMITIES: Showed no significant edema. There was no cyanosis or clubbing. IMAGING DATA: The patient had a CAT scan of her sinuses yesterday. This showed postoperative changes. She had considerable mucosal thickening and residual maxillary and ethmoid sinus area. There were hypertrophic changes of the residual nasal turbinates. The osteomeatal units were occluded with the antral windows patent. LABORATORY DATA: White count today is 14.61. The elevation may be due to steroids. LABORATORY DATA: Hemoglobin 13.1. Platelets 282,000. Electrolytes show sodium 139, potassium 3.4, chloride 103, bicarbonate 28. The BUN is 28 with a creatinine of 0.83. Blood sugar randomly was 161. IMPRESSIONS: 1. Asthma with exacerbation. 2. Chronic sinus disease. COMMENTS AND RECOMMENDATIONS: The patient is improved. I did a peak flow at bedside that was 250. I believe she needs at least 1 more day of inpatient therapy. I believe this will lessen the likelihood she will have to come back sooner than desired. Her prednisone was changed to oral. She remains on Tiotropium. This drug does have indications for asthma. She is on levofloxacin. She is on her reflux medications. She remains on montelukast. She continues to get her albuterol/ipratropium neb treatments q.i.d. Hopefully, with any improvement at all, we can safely discharge her tomorrow if all goes well. She will need to follow up with me in the office in a week or two.
[2017-06-24] MEDS ORDERED: INSULIN HUMAN NPH SC ONE (10:30)
--- NOTE | 2017-06-24 11:12 | NUR ---
ID Note: Patient is alert and oriented x4, lungs clear on room air at this time, verbalizes some CASTRO. Patient is independent in the room. Non-productive cough present, unable to produce sputum sample, patient states "those cough pills help", requesting to take Tessalon Perles q8 hr. See eMAR for details. Patient states "I feel like I turned a corner, I'm feeling a lot better today". IV site removed from right forearm this morning d/t infiltration, IV team and MD notified. No IV site at this time. Verbalizes desire to go home. Possible discharge tomorrow.
[2017-06-24] MEDS: ACETAMINOPHEN 325 MG TAB PO PRN (12:37)
[2017-06-24] MEDS ORDERED: GUAIFENESIN/CODEINE 100MG/10MG 5ML UDC PO PRN (13:15)
--- NOTE | 2017-06-24 13:24 | Hospitalist Progress Note ---
Hospitalist Progress Note Date of Service Jun 24, 2017. (Amanda Mathews CRNP) Subjective Pt evaluation today including: conversation w/ patient, physical exam, chart review, lab review, conversation w/ weight loss sales consultant Voiding: no voiding problems Ms. Carreon is improving but continues to have non productive cough, sob, wheezing , sinus pressure with yellow drainage. She is not requiring supplemental O2. ROS Constitutional: no chills, aches, sweats or fever Respiratory: see hpi Cardiac: no chest pain, palpitations, edema, orthopnea or lightheadedness GI: no abdominal pain, nausea, vomiting, diarrhea or constipation : no dysuria or hesitancy Extremities: no joint pain or weakness Skin: no rash All Other Systems: Reviewed and Negative (Aamnda Mathews CRNP) Medications Medications Administered Medications (Trade) Dose Ordered Sig/Db Route Start Time Stop Time Status Last Admin Dose Admin Albuterol/ Ipratropium (Duoneb) 12 ml ONE STAT INH 06/21/17 15:53 06/21/17 15:57 DC 06/21/17 16:31 12 ML Methylprednisolone Sodium Succinate (Solu-Medrol IV) 125 mg NOW STAT IV 06/21/17 15:53 06/21/17 15:57 DC 06/21/17 16:31 125 MG Enoxaparin Sodium (Lovenox Inj) 40 mg Q24H SQ 06/21/17 22:00 07/21/17 21:59 06/23/17 21:05 40 MG Acetaminophen (Tylenol Tab) 650 mg Q4H PRN PO 06/21/17 19:00 07/21/17 18:59 06/24/17 12:37 650 MG Potassium Chloride (Klor-Con Tab) 40 meq 2100 ONCE PO 06/21/17 21:00 06/21/17 21:01 DC 06/21/17 21:22 40 MEQ Methylprednisolone Sodium Succinate 60 mg/Syringe 0.96 ml @ 1.5 mls/min BID@0400,1600 IV 06/22/17 04:00 06/22/17 14:12 DC 06/22/17 04:01 1.5 MLS/MIN Albuterol/ Ipratropium (Duoneb) 3 ml QIDR INH 06/21/17 20:00 07/21/17 19:59 06/24/17 11:18 3 ML Guaifenesin (Mucinex Contr Rel Tab) 600 mg Q12 PO 06/21/17 21:00 07/21/17 20:59 06/24/17 07:49 600 MG Furosemide (Lasix Tab) 20 mg BID17 PO 06/21/17 21:00 06/22/17 17:10 DC 06/22/17 16:54 20 MG Levofloxacin (Levaquin Tab) 500 mg DAILY PO 06/22/17 08:00 06/29/17 08:59 06/24/17 07:49 500 MG Losartan Potassium (coZAAR TAB) 25 mg DAILY PO 06/22/17 08:00 07/22/17 08:59 06/24/17 07:50 25 MG Metoprolol Succinate (Toprol Xl Tab) 25 mg DAILY PO 06/22/17 08:00 06/22/17 12:05 DC 06/22/17 08:06 25 MG Montelukast Sodium (Singulair Tab) 10 mg QPM PO 06/21/17 21:00 07/21/17 20:59 06/23/17 21:05 10 MG Pantoprazole Sodium (Protonix Tab) 40 mg QAM PO 06/22/17 08:00 07/22/17 08:59 06/24/17 07:50 40 MG Sertraline HCl (Zoloft Tab) 50 mg QAM PO 06/22/17 08:00 07/22/17 08:59 06/24/17 07:50 50 MG Potassium Chloride (Klor-Con Tab) 20 meq QAM PO 06/22/17 08:00 07/22/17 08:59 06/24/17 07:49 20 MEQ Potassium Chloride (Klor-Con M10) 40 meq NOW ONCE PO 06/22/17 09:15 06/22/17 09:16 DC 06/22/17 10:50 40 MEQ Furosemide 40 mg/ Syringe 4 ml @ 4 mls/min TODAY@1215 ONCE IV 06/22/17 12:15 06/22/17 12:16 DC 06/22/17 12:44 4 MLS/MIN Methylprednisolone Sodium Succinate 60 mg/Syringe 0.96 ml @ 1.5 mls/min TID IV 06/22/17 20:00 06/23/17 10:44 DC 06/23/17 08:14 1.5 MLS/MIN Fluticasone Propionate (Flovent Hfa 220MCG Inhaler) 2 puffs BID INH 06/22/17 20:00 07/22/17 19:59 06/24/17 07:50 2 PUFFS Carvedilol (Coreg Tab) 3.125 mg BID PO 06/23/17 08:00 07/22/17 19:59 06/24/17 07:51 3.125 MG Furosemide 20 mg/ Syringe 2 ml @ 4 mls/min BID17 IV 06/23/17 09:00 06/24/17 08:45 DC 06/24/17 07:49 4 MLS/MIN Tiotropium [place] (Spiriva Handihaler Inhaler) 1 puff QAM INH 06/23/17 08:00 07/23/17 07:59 06/24/17 07:51 1 PUFF Cholecalciferol (Vitamin D Tab) 3,000 inter.unit QAM PO 06/23/17 08:00 07/23/17 07:59 06/24/17 07:49 3,000 INTER.UNIT Benzonatate (Tessalon Perles Cap) 100 mg TID PRN PO 06/23/17 00:30 07/23/17 00:29 06/24/17 07:50 100 MG Methylprednisolone Sodium Succinate 40 mg/Syringe 0.64 ml @ 1.5 mls/min TID IV 06/23/17 14:00 06/24/17 08:45 DC 06/24/17 07:49 1.5 MLS/MIN Insulin Aspart (novoLOG ASPART) SLIDING SCALE If C... ACHS SC 06/23/17 16:30 07/23/17 16:29 06/23/17 21:14 2 UNITS Potassium Chloride (Klor-Con M10) 40 meq NOW ONCE PO 06/24/17 08:45 06/24/17 08:46 DC 06/24/17 09:43 40 MEQ Prednisone (PredniSONE TAB) 60 mg DAILY PO 06/24/17 09:00 07/24/17 08:59 06/24/17 09:43 60 MG Insulin Human NPH (novoLIN-N NPH) 20 units NOW ONCE SC 06/24/17 10:30 06/24/17 10:31 DC 06/24/17 11:02 20 UNITS (Amanda Mathews CRNP) Objective Vital Signs Date Time Temp Pulse Resp B/P (MAP) Pulse Ox O2 Delivery O2 Flow Rate FiO2 06/24/17 11:19 79 16 91 Room Air 06/24/17 08:00 92 Room Air 06/24/17 07:19 36.8 77 18 152/95 (114) 95 Room Air 06/24/17 07:04 75 16 95 Nasal Cannula 3.0 06/23/17 23:53 36.8 89 20 148/95 (112) 91 Nasal Cannula 2.0 06/23/17 20:30 85 147/91 (109) 06/23/17 19:15 Room Air 06/23/17 18:46 99 16 91 Room Air 06/23/17 16:00 92 Room Air 06/23/17 15:01 37.0 93 18 115/79 (91) 91 Room Air 06/23/17 14:22 96 16 91 Room Air (Amanda Mathews CRNP) Physical Exam Notes: General: no distress Eyes: normal inspection, PERLL Respiratory: chest non tender, expiratory wheezes throughout lung kulkarni, no respiratory distress, no accessory muscle use Cardiac: regular rate and rhythm, no rub or gallop, no murmur, no edema, no jvd GI/: active bowel sounds, no abd pain or tenderness, soft, non distended Extremities: normal range of motion, normal strength, non tender Neuro/Psych: alert and oriented x 3, normal mood and affect Skin: normal color, dry (Amanda Mathews CRNP) Laboratory Results Last 24 Hours Test 06/23/17 15:42 06/23/17 20:05 06/24/17 07:23 Bedside Glucose 193 mg/dl 169 mg/dl White Blood Count 14.61 K/uL Red Blood Count 4.62 M/uL Hemoglobin 13.1 g/dL Hematocrit 39.9 % Mean Corpuscular Volume 86.4 fL Mean Corpuscular Hemoglobin 28.4 pg Mean Corpuscular Hemoglobin Concent 32.8 g/dl RDW Standard Deviation 47.9 fL RDW Coefficient of Variation 15.0 % Platelet Count 282 K/uL Mean Platelet Volume 10.4 fL Sodium Level 139 mmol/L Potassium Level 3.4 mmol/L Chloride Level 103 mmol/L Carbon Dioxide Level 28 mmol/L Anion Gap 8.0 mmol/L Blood Urea Nitrogen 28 mg/dl Creatinine 0.83 mg/dl Est Creatinine Clear Calc Drug Dose 90.9 ml/min Estimated GFR () 88.8 Estimated GFR (Non- 76.6 BUN/Creatinine Ratio 34.3 Random Glucose 161 mg/dl Calcium Level 8.8 mg/dl (Amanda Mathews CRNP) Assessment and Plan Ms. Carreon is a 62 year old woman here for asthma exacerbation Asthma exacerbation/non- ischemic cardiomyopathy/diastolic CHF/ htn - Grade 1 diastolic heart failure with EF 55-60% on most recent Echo this year - continue nebs, guaifenesin, Levaquin, montelukast, - added robitussin with codeine for persistent cough - Solumedrol changed to prednisone - continue to taper - Continue Spiriva and fluticasone per pulm - IV lasix changed to 40 mg po bid - Discussed with Dr. Del Castillo who sees patient in the office concerning worsening symptoms on metoprolol and he felt it was reasonable to try her back on the Coreg to see if symptoms improved - d/c'd metoprolol and changed to 3.125 mg bid Coreg 06/22 per her outpatient records - continue losartan - Appreciate pulm recs - Peak flow 250 this morning - 2 step before discharge Hyperglycemia - likely due to steroids - bsgs ac and hs, ss - added 20 units qam NPH per pharmacy recommendation to cover morning blood sugar spike due to steroid administration - A1c in April was 6.3 Hypokalemia - replaced Anxiety/depression: Continue Xanax 0.25 mg BID PRN, Zoloft 50 mg daily GERD: Continue Protonix + Zantac DVT prophylaxis: Lovenox SQ daily Full code (Amanda Mathews CRNP) Reviewed: Pt Seen/Exam by Me (Cassy Rivera MD) History JOEL Supervision Note: I interviewed and examined the patient. Discussed with JOEL Mathews and agree with findings and plan as documented in the note. Any exceptions or clarifications are listed here: Improved today, still with a lot of cough, wheezing. Vitals reviewed NAD, obese RRR no mgr, no distress Lungs with scattered exp wheezes and some rhonchi throughout, but moving air well Abd +BS soft NT ND Ext no edema, no calf tenderness Pt is a 62 yo female with a h/o previous nonischemic CM (LVEF 25% as per pt) that has resolved, chronic diastolic CHF, HTN, asthma and restrictive lung disease, GERD, severe Vit D deficiency, anxiety/depression, and OA, here with: Acute hypoxemic resp failure, acute on chronic diastolic CHF, and acute asthma exacerbation- Improved after receiving IV lasix, IV steroids since admission. SHe is diuresing and is now weaned off O2, but continues to remain hypoxic to 89% at times She reports frequent prednisone tapers over the last 2 months and a 30 lb weight gain since Mar 2017. I suspect multiple rounds of prednisone have contributed to her fluid retention , pulm edema on CXR, and rapid weight gain in the last 2 months. Now with sinus symptoms despite being on Levaquin and steroids-could be viral URI, CT sinuses with chronic sinusitis changes and post-surgical findings -switched back to po lasix today -wean steroids down to prednisone taper -continue Flovent bid, nebs, SPiriva -ok to finish out 7 day course po Levaquin -continue ARB, changed metoprolol back to Coreg--> consider switching to bisoprolol if beta blockers continue to be suspected as culprit for exacerbating her reactive airway disease -continue daily weights, I/Os, and changed to low Na+ diet, counseled on the same -will need 2 step prio to discharge perhaps in 1-2 days Documented By: Cassy Rivera (Cassy Rivera MD)
[2017-06-24] MEDS: FUROSEMIDE 40 MG TAB PO SCH (19:17)
[2017-06-24] MEDS: MONTELUKAST SOD 10 MG TAB PO SCH (20:24)
[2017-06-24] MEDS: ENOXAPARIN 40 MG/0.4 ML SYR SQ SCH (21:20)
[2017-06-25] VITALS (7 sets, daily range): BP systolic 97–146; BP diastolic 63–94; PULSE 77–92; TEMP 36.8–37; O2SAT 90–93
[2017-06-25] MEDS: ALBUT/IPRATROP 3MG/0.5MG NEB 3 ML VIAL INH SCH ×2 (07:47→11:18)
[2017-06-25] MEDS: FUROSEMIDE 40 MG TAB PO SCH ×2 (08:26→17:01)
[2017-06-25] MEDS: LOSARTAN POTASSIUM 25 MG TAB PO SCH (08:27)
[2017-06-25] MEDS: BENZONATATE 100MG CAP PO PRN ×2 (08:27→17:00)
[2017-06-25] MEDS: POTASSIUM CHLORIDE 20 MEQ TABCR PO SCH ×2 (08:28→19:43)
[2017-06-25] MEDS: GUAIFENESIN 600 MG TABCR PO SCH ×2 (08:29→19:41)
[2017-06-25] MEDS: CARVEDILOL 3.125 MG TAB PO SCH ×2 (08:29→19:40)
[2017-06-25] MEDS: PANTOprazole SOD 40 MG TAB PO SCH (08:30)
[2017-06-25] MEDS: LEVOFLOXACIN 500 MG TAB PO SCH (08:30)
[2017-06-25] MEDS: SERTRALINE HCL 50 MG TAB PO SCH (08:30)
[2017-06-25] MEDS: CHOLECALCIFEROL 1000 INTER.UNIT TAB PO SCH (08:31)
[2017-06-25] MEDS: FLUTICASONE HFA 220 MCG INHALER INH SCH ×2 (08:32→19:43)
[2017-06-25] MEDS: TIOTROPIUM BROMIDE 5 PUFF/90 MCG INH INH SCH (08:32)
[2017-06-25] MEDS: INSULIN ASPART 100 UNITS/ML 3 ML PEN SC SCH ×4 (08:34→20:53)
[2017-06-25] MEDS: INSULIN HUMAN NPH SC SCH (08:37)
[2017-06-25 09:51] LABS: BASO % 0.2 %; BASO ABS # 0.03 K/uL (0-0.2); EOS % 0.1 %; EOS ABS # 0.01 K/uL (0-0.5); HEMOGLOBIN 14.1 g/dL (12.0-16.0); IG# 0.18 K/uL (0.00-0.02); LYMPH % 22.6 %; LYMPH ABS # 3.12 K/uL (1.2-3.4); MEAN CELL VOLUME 86.4 fL (80-100); MEAN CORPUSCULAR HGB CONC 33.6 g/dl (32-36); MONO % 5.8 %; NEUT ABS # 9.66 K/uL (1.4-6.5); PLATELET COUNT 274 K/uL (130-400); RED CELL DISTRIBUTION WIDTH CV 15.2 % (11.5-14.5); RED CELL DISTRIBUTION WIDTH SD 48.3 fL (36.4-46.3)
[2017-06-25 10:08] LABS: CALCIUM 8.2 mg/dl (8.5-10.1); CREATININE 0.99 mg/dl (0.60-1.20); POTASSIUM 3.1 mmol/L (3.5-5.1)
[2017-06-25] MEDS ORDERED: POTASSIUM CHLORIDE 10 MEQ TABCR PO STA (11:16)
[2017-06-25] MEDS: ACETAMINOPHEN 325 MG TAB PO PRN ×2 (11:17→17:00)
[2017-06-25] MEDS ORDERED: HYDROCODONE/HOMATROPINE SYRUP 5MG/1.5MG 5ML UDP PO PRN (11:45)
--- NOTE | 2017-06-25 11:53 | Hospitalist Progress Note ---
Hospitalist Progress Note Date of Service Jun 25, 2017. Subjective Pt evaluation today including: conversation w/ patient, conversation w/ medical cost consultant (Pulm) Pt feeling worse today, but sitll better than on admission. Coughing a lot that causes a lot of pain in her chest. Making urine, moving her bowels, mary po, gets CASTRO. All Other Systems: Reviewed and Negative Objective Vital Signs Date Time Temp Pulse Resp B/P (MAP) Pulse Ox O2 Delivery O2 Flow Rate FiO2 06/25/17 11:18 77 16 92 Room Air 06/25/17 08:00 Room Air 06/25/17 07:48 82 16 90 Room Air 06/25/17 07:27 37.0 85 18 146/94 (111) 90 06/25/17 00:00 Room Air 06/24/17 23:58 36.8 83 18 139/86 (103) 91 Room Air 06/24/17 20:25 85 127/76 (93) 06/24/17 20:00 Room Air 06/24/17 19:16 95 16 90 Room Air 06/24/17 15:27 82 16 92 Room Air 06/24/17 14:57 37.1 85 20 130/85 (100) 91 Room Air Physical Exam General Appearance: WD/WN, no apparent distress, + obese Eyes: normal inspection, sclerae normal ENT: hearing grossly normal Neck: trachea midline Respiratory/Chest: no respiratory distress, no accessory muscle use, + wheezing (diffusely) Cardiovascular: regular rate, rhythm, no edema, no murmur Abdomen: normal bowel sounds, non tender, soft Extremities: non-tender, normal inspection, no pedal edema, no calf tenderness Neurologic/Psychiatric: alert, normal mood/affect Skin: normal color, warm/dry, no rash Laboratory Results Last 24 Hours Test 06/24/17 16:35 06/24/17 20:24 06/25/17 07:37 06/25/17 09:39 Bedside Glucose 176 mg/dl 255 mg/dl 94 mg/dl White Blood Count 13.80 K/uL Red Blood Count 4.86 M/uL Hemoglobin 14.1 g/dL Hematocrit 42.0 % Mean Corpuscular Volume 86.4 fL Mean Corpuscular Hemoglobin 29.0 pg Mean Corpuscular Hemoglobin Concent 33.6 g/dl Platelet Count 274 K/uL Mean Platelet Volume 10.0 fL Neutrophils (%) (Auto) 70.0 % Lymphocytes (%) (Auto) 22.6 % Monocytes (%) (Auto) 5.8 % Eosinophils (%) (Auto) 0.1 % Basophils (%) (Auto) 0.2 % Neutrophils # (Auto) 9.66 K/uL Lymphocytes # (Auto) 3.12 K/uL Monocytes # (Auto) 0.80 K/uL Eosinophils # (Auto) 0.01 K/uL Basophils # (Auto) 0.03 K/uL RDW Standard Deviation 48.3 fL RDW Coefficient of Variation 15.2 % Immature Granulocyte % (Auto) 1.3 % Immature Granulocyte # (Auto) 0.18 K/uL Sodium Level 140 mmol/L Potassium Level 3.1 mmol/L Chloride Level 101 mmol/L Carbon Dioxide Level 33 mmol/L Anion Gap 6.0 mmol/L Blood Urea Nitrogen 32 mg/dl Creatinine 0.99 mg/dl Est Creatinine Clear Calc Drug Dose 76.9 ml/min Estimated GFR () 71.8 Estimated GFR (Non- 61.9 BUN/Creatinine Ratio 31.8 Random Glucose 134 mg/dl Calcium Level 8.2 mg/dl Magnesium Level 2.1 mg/dl Assessment and Plan Pt is a 62 yo female with a h/o previous nonischemic CM (LVEF 25% as per pt) that has resolved, chronic diastolic CHF, HTN, asthma and restrictive lung disease, GERD, severe Vit D deficiency, anxiety/depression, and OA, here with: Acute hypoxemic resp failure, acute on chronic diastolic CHF, and acute asthma exacerbation- Improved after receiving IV lasix, IV steroids since admission. SHe is diuresing and is now weaned off O2, but continues to remain hypoxic to 89% at times She reports frequent prednisone tapers over the last 2 months and a 30 lb weight gain since Mar 2017. I suspect multiple rounds of prednisone have contributed to her fluid retention , pulm edema on CXR, and rapid weight gain in the last 2 months. Now with sinus symptoms despite being on Levaquin and steroids-could be viral URI, CT sinuses with chronic sinusitis changes and post-surgical findings Today i s slightly worse than yesterday since transitioning to po prednisone when she lost her IV. Peak flow 230 this morning, worse than yesterday 250 - Grade 1 diastolic heart failure with EF 55-60% on most recent Echo this year - continue nebs but switch to Levalbuterol to see if helps rather than Dupnebs -continue guaifenesin, add Hycodan for cough and chest pain -today is the last dose of Levaquin for total 7 day course (started prior to admission) -continue montelukast - continue prednisone and keep at 60mg today - Continue Spiriva and fluticasone inhaler per pulm - continue lasix 40 mg po bid, replace K+ - Discussed with Dr. Del Castillo on admission who sees patient in the office concerning subjectively worsening symptoms on metoprolol and he felt it was reasonable to try her back on the Coreg to see if symptoms improved - d/c'd metoprolol and changed to 3.125 mg bid Coreg 06/22 per her outpatient records -consider switching to bisoprolol which may have less pulmonary effects - Appreciate pulm recs - 2 step before discharge -continue daily weights, I/Os, and changed to low Na+ diet, counseled on the same HTN-stable -continue losartan, Coreg Hyperglycemia/Prediabetes- - A1c in April was 6.3 - likely due to steroids - bsgs ac and hs, ss - added 20 units qam NPH per pharmacy recommendation to cover morning blood sugar spike due to steroid administration Hypokalemia - replaced and will start daily 20mg bid KCl Anxiety/depression: Continue Xanax 0.25 mg BID PRN, Zoloft 50 mg daily GERD: Continue Protonix + Zantac DVT prophylaxis: Lovenox SQ daily Full code Dispo-to home in 1-2 days when wheezing improved
--- NOTE | 2017-06-25 12:29 | DIAGNOSTIC IMAGING REPORT ---
CHEST 2 VIEWS ROUTINE CLINICAL HISTORY: 62 years-old Female presenting with hypoxia. TECHNIQUE: PA and lateral views of the chest were obtained. COMPARISON: 06/21/2017. FINDINGS: Atherosclerosis of the aortic arch. Cardiac silhouette normal in size. Decreased prominence of pulmonary vascular tree. Minimal bibasilar opacities persist. No new focal infiltrate. Trace pleural effusions may be present. No pneumothorax. Osseous structures normal. Upper abdomen normal. IMPRESSION: 1. Decreased pulmonary vascular prominence. 2. Persistent minimal bibasilar atelectasis or scarring. 3. Questionable trace bilateral effusions. Electronically signed by: Vikram Matta M.D. 06/25/2017 12:28 PM Dictated Date/Time: 06/25/2017 12:27 PM
--- NOTE | 2017-06-25 13:03 | PULMONARY PROGRESS NOTE ---
DATE: 06/25/2017 TIME: 11:30. SUBJECTIVE: The patient states she does not feel as good today. She feels somewhat more congested and short of breath. She is just a little tighter than yesterday. This correlates with her peak flow. She did a peak flow this morning at 230 and yesterday had been 250. Otherwise, she feels about the same. She is still undergoing a lot of stress related to the severe illness of her [id number]. OBJECTIVE: VITAL SIGNS: Temperature is 37. Heart rate was 82 per minute. The rhythm is regular. Blood pressure 146/94. EARS, NOSE, AND THROAT: Unchanged. CHEST: The patient had an occasional cough. Rhonchi are heard bilaterally. Oxygen saturation on room air was 90%. EXTREMITIES: Showed no edema. LABORATORY DATA: White count today is 13.80. Yesterday, it was 14.61. Hemoglobin is 14.1. Platelets are 274,000. Electrolytes show sodium 140, potassium 3.1, chloride 101, and bicarb 33. The BUN was 32 with a creatinine of 0.99. It is notable that the carbon dioxide level is the highest that it has been. IMPRESSIONS: Asthma with exacerbation. COMMENTS AND RECOMMENDATIONS: Case was discussed with Dr. Rivera. We will do a followup chest x-ray to make sure there has been no significant change. The initial one suggested possible fluid overload. We will change the neb treatments to levalbuterol rather than albuterol and see if that offers her any benefit. Would continue the prednisone at 60 mg. Other medicines would stay the same. Hopefully, she will be a bit better tomorrow, such that she can be discharged.
[2017-06-25] MEDS: LEVALBUTEROL 1.25MG/0.5ML NEB INH SCH ×2 (14:10→19:09)
--- NOTE | 2017-06-25 18:37 | NUR ---
ID: Pt a/o x 4, VSS on RA. Tolerating diet. PO steroids/ABX. Independent in room. Moist non productive cough, CASTRO noted. Possible discharge next 1-2 days per MD. No further needs at this time. Call whitman and bedside table in reach. Continue to monitor.
[2017-06-25] MEDS: MONTELUKAST SOD 10 MG TAB PO SCH (19:42)
[2017-06-25] MEDS: ENOXAPARIN 40 MG/0.4 ML SYR SQ SCH (22:00)
[2017-06-26] MEDS: LEVALBUTEROL 1.25MG/0.5ML NEB INH SCH ×2 (02:36→07:41)
[2017-06-26 07:09] VITALS: BP 133/94; PULSE 76; TEMP 36.8; O2SAT 93
[2017-06-26] MEDS: FLUTICASONE HFA 220 MCG INHALER INH SCH (07:39)
[2017-06-26] MEDS: TIOTROPIUM BROMIDE 5 PUFF/90 MCG INH INH SCH (07:39)
[2017-06-26] MEDS: CARVEDILOL 3.125 MG TAB PO SCH (07:40)
[2017-06-26 07:41] VITALS: PULSE 70; O2SAT 93
[2017-06-26] MEDS: PANTOprazole SOD 40 MG TAB PO SCH (07:41)
[2017-06-26] MEDS: SERTRALINE HCL 50 MG TAB PO SCH (07:41)
[2017-06-26] MEDS: GUAIFENESIN 600 MG TABCR PO SCH (07:42)
[2017-06-26] MEDS: LOSARTAN POTASSIUM 25 MG TAB PO SCH (07:42)
[2017-06-26] MEDS: LEVOFLOXACIN 500 MG TAB PO SCH (07:42)
[2017-06-26] MEDS: BENZONATATE 100MG CAP PO PRN ×2 (07:44→13:25)
[2017-06-26 07:45] LABS: CALCIUM 8.5 mg/dl (8.5-10.1); CREATININE 0.92 mg/dl (0.60-1.20); POTASSIUM 3.8 mmol/L (3.5-5.1)
[2017-06-26] MEDS: POTASSIUM CHLORIDE 20 MEQ TABCR PO SCH (07:45)
[2017-06-26] MEDS: FUROSEMIDE 40 MG TAB PO SCH (07:45)
[2017-06-26] MEDS: CHOLECALCIFEROL 1000 INTER.UNIT TAB PO SCH (07:46)
[2017-06-26] MEDS: INSULIN ASPART 100 UNITS/ML 3 ML PEN SC SCH ×2 (07:48→13:26)
[2017-06-26] MEDS: INSULIN HUMAN NPH SC SCH (07:53)
[2017-06-26] MEDS ORDERED: CRG3125 PO (12:21)
[2017-06-26] MEDS ORDERED: GFNSR600 PO (12:21)
[2017-06-26] MEDS ORDERED: XPNINS1255 INH (12:21)
[2017-06-26] MEDS ORDERED: FLVHFA220 INH (12:21)
[2017-06-26] MEDS ORDERED: BENZ100C7 PO (12:21)
[2017-06-26] MEDS ORDERED: PRD20 PO (12:21)
[2017-06-26] MEDS ORDERED: MCRK20 PO (12:21)
--- NOTE | 2017-06-26 12:26 | Discharge Instructions ---
Discharge Instructions Date of Service Jun 26, 2017. Admission Reason for Admission: Asthma Exacerbation Discharge Discharge Diagnosis / Problem: Acute asthma exacerbation, acute on chronic diastolic CHF Discharge Goals Goal(s): Improve disease control, Diagnostic testing, Therapeutic intervention Activity Recommendations Activity Limitations: as noted below Exercise/Sports Limitations: rest today, gradually increase as tolerated Shower/Bathe: no limitations . Instructions / Follow-Up Instructions / Follow-Up Please finish out your prednisone course as prescribed. Please follow the new medication list very carefully as there have been a number of changes. Please weight yourself daily and if you gain more than 2-3 lbs in one day, please call your doctor. Follow up appointments were made for you with Dr. Lane and Dr. Canada. Current Hospital Diet Patient's current hospital diet: Low Sodium Diet (2gm Na) Discharge Diet Recommended Diet: Low Sodium Diet (2gm Na) Procedures Procedures Performed: Chest xrays CT Sinuses Pending Studies Studies pending at discharge: no Laboratory Results Hemoglobin A1c Test 05/23/17 11:28 Range/Units Estimated Average Glucose 134 mg/dl Hemoglobin A1c 6.3 H 4.5-5.6 % Medical Emergencies . Who to Call and When: Medical Emergencies: If at any time you feel your situation is an emergency, please call 911 immediately. . Non-Emergent Contact Non-Emergency issues call your: Primary Care Provider, Senior Qa Engineer Call Non-Emergent contact if: you have a fever, temperature is above 100.5, you have any medication questions your shortness of breath or cough worsens, or for any other acute concerns . . "Provider Documentation" section prepared by Cassy Rivera. . VTE Core Measure Inpt VTE Proph given/why not?: Enoxaparin (Lovenox)CHELSEA, Best Villarreal, SCD's
[2017-06-26 13:08] VITALS: BP 133/94; PULSE 70; TEMP 36.8; O2SAT 93
--- NOTE | 2017-06-26 13:35 | NUR ---
A: Pt discharged, all discharge instructions/paperwork given to pt and spouse, both verbalized understanding. All belongings with pt. Pt ambulated off floor independently with spouse. No further needs at this time.
--- NOTE | 2017-06-26 17:21 | Discharge Summary ---
Discharge Summary Date of Service Jun 26, 2017. Discharge Summary Admission Date: Jun 21, 2017 at 19:20 Discharge Date: Jun 26, 2017 Discharge Disposition: Home Principal Diagnosis: acute asthma exacerbation, acute on chronic diastolic CHF Problems/Secondary Diagnoses: Acute hypoxemic respiratory failure h/o previous nonischemic CM (LVEF 25% as per pt) that has resolved chronic diastolic CHF HTN restrictive lung disease GERD Severe Vit D deficiency anxiety/depression OA chronic sinusitis Hyperglycemia and Prediabetes Hypokalemia Obesity, BMI 37.5 Immunizations: Have You Had Influenza Vaccine: Yes History of Tetanus Vaccine?: Yes History of Pneumococcal: Yes Pneumococcal Date: Oct 21, 2012 History of Hepatitis B Vaccine: No Procedures: Chest x-rays CT sinuses Consultations: Pulmonology Medication Reconciliation New Medications: Benzonatate (Benzonatate) 100 Mg Cap 100 MG PO TID PRN for Cough for 7 Days, #21 CAP Carvedilol (Carvedilol) 3.125 Mg Tab 3.125 MG PO BID for 30 Days, #60 TAB Fluticasone Propionate (Flovent Hfa) 120 Puffs/09255 Mcg Aero 2 PUFFS INH BID for 30 Days, #1 INHALER Guaifenesin Ext Rel (Mucinex Ext Rel) 600 Mg Tabcr 600 MG PO Q12 for 15 Days, #30 TAB OTC Levalbuterol (Levalbuterol) 1.25 Mg/0.5 Ml Nebu 1.25 MG INH Q6H for 30 Days, #1 BOX and can take an extra treatment [id number] prn cough/wheezing Potassium Chloride (Klor-Con M20) 20 Meq Tabcr 20 MEQ PO QAM for 30 Days, #30 TAB Prednisone (Prednisone) 20 Mg Tab 60 MG PO DAILY, #18 TAB x 1 day then 50mg daily x2 days, then decrease by 10mg every 2 days until gone Continued Medications: Alprazolam (Alprazolam) 0.25 Mg Tab 0.25 MG PO BID PRN for Anxiety Cholecalciferol (Vitamin D3) 2,000 Unit Cap 2000 INTER.UNIT PO DAILY, CAP Furosemide (Furosemide) 20 Mg Tab 40 MG PO BID for 30 Days Losartan Potassium (Losartan Potassium) 25 Mg Tab 25 MG PO DAILY Montelukast Sod (Montelukast Sodium) 10 Mg Tab 10 MG PO QPM Naproxen (Naproxen) 500 Mg Tab 500 MG PO Q12 PRN for Pain Pantoprazole (Pantoprazole Sodium) 40 Mg Tab 40 MG PO QAM Ranitidine Hcl (Zantac) 300 Mg Tab 300 MG PO HS Sertraline HCl (Sertraline HCl) 50 Mg Tab 50 MG PO QAM Tiotropium [place] (Spiriva Respimat) 1.25 Mcg/Act Aer 2 PUFFS INH DAILY, INHALER Discontinued Medications: Ipratropium [place] (Atrovent 0.02% Soln) 2.5 Ml Nebu 2.5 ML NEB Q4-6HRS PRN for SOB/Wheezing MIX WITH ALBUTEROL NEBULIZER SOLUTION EVERY 4-6 HOURS NEEDED Ipratropium-Albuterol (Duoneb) 3 Ml Nebu 1 TREATMENT INH Q4H PRN for SOB/Wheezing, INHA Levofloxacin (Levaquin) 500 Mg Tab 500 MG PO DAILY for 10 Days PRESCRIBED 06/19/2017, TAKE DIRECTED UNTIL GONE Metoprolol Succinate (Metoprolol Succinate ER) 25 Mg Tabcr 25 MG PO DAILY Discharge Exam Patient feeling much better on the day of discharge. She ambulated in the halls with the respiratory therapist and the lowest pulse ox was 89% on room air. She will not require oxygen upon discharge. Her cough is much improved as is her wheezing. She denies chest pain, abdominal pain, no diarrhea. Physical Exam General Appearance: WD/WN, no apparent distress, + obese Eyes: normal inspection, sclerae normal ENT: hearing grossly normal Neck: trachea midline Respiratory/Chest: no respiratory distress, no accessory muscle use, only occasional inspiratory wheezes in the upper airways, otherwise moving air very well and no expiratory wheezes, no crackles Cardiovascular: regular rate, rhythm, no edema, no murmur Abdomen: normal bowel sounds, non tender, soft Extremities: non-tender, normal inspection, no pedal edema, no calf tenderness Neurologic/Psychiatric: alert, normal mood/affect Skin: normal color, warm/dry, no rash Review of Systems: Constitutional: No fever, No chills Eyes: No problem reported ENT: No problem reported Respiratory: + cough Cardiovascular: No chest pain Abdomen: No pain, No nausea, No vomiting, No diarrhea, No constipation Musculoskeletal: No problem reported Genitourinary - Female: No problem reported Neurologic: No problem reported Psychiatric: No problem reported Endocrine: No problem reported Hematologic / Lymphatic: No problem reported Integumentary: No problem reported Hospital Course Pt is a 62 yo female with a h/o previous nonischemic CM (LVEF 25% as per pt) that has resolved, chronic diastolic CHF, HTN, asthma and restrictive lung disease, GERD, severe Vit D deficiency, anxiety/depression, and OA, here with: Acute hypoxemic resp failure, acute on chronic diastolic CHF, and acute asthma exacerbation- She is now significantly improved after receiving IV lasix with effective diuresis, IV steroids. She is now weaned off O2, but continues to remain hypoxic to 89% at the worst with exertion, but does not need home oxygen on discharge. She reports frequent prednisone tapers over the last 2 months and a 30 lb weight gain since Mar 2017. I suspect multiple rounds of prednisone have contributed to her fluid retention , pulm edema on CXR, and rapid weight gain in the last 2 months. Now with sinus symptoms despite being on Levaquin and steroids-could be viral URI, CT sinuses with chronic sinusitis changes and post-surgical findings - continue Levalbuterol nebulizers at home -Continue Tessalon Perles at home -She completed a 7 day course of Levaquin-no further antibiotics needed -continue montelukast - continue prednisone 60 mg daily and then taper down by 10 mg every 2 days until gone - Continue Spiriva and Flovent inhaler upon discharge - continue lasix 40 mg po bid, replace K+ daily - Discussed with Dr. Del Castillo on admission who sees patient in the office concerning subjectively worsening symptoms on metoprolol and he felt it was reasonable to try her back on the Coreg to see if symptoms improved - d/c'd metoprolol and changed to Coreg 3.125 mg bid -consider switching to bisoprolol in the future if continues to have significant pulmonary issues - Appreciate pulmonology consultation -continue daily weights at home, low Na+ diet HTN-stable -continue losartan, Coreg Hyperglycemia/Prediabetes- - A1c in April was 6.3 - Hyperglycemia here likely due to steroids and was treated with NPH 20 units in the morning, no need to continue insulin upon discharge as prednisone tapering down -Follow up with PCP -Counseled on low carbohydrate diet, weight loss Hypokalemia - replaced and will start daily 20mg KCl Anxiety/depression: Continue Xanax 0.25 mg BID PRN, Zoloft 50 mg daily GERD: Continue Protonix + Zantac Stable for discharge to home today Total Time Spent: Greater than 30 minutes This includes examination of the patient, discharge planning, medication reconciliation, and communication with other providers. Discharge Instructions Please refer to the electronic Patient Visit Report (Discharge Instructions) for additional information. Follow-Up With PCP within one week With pulmonology within 2 weeks Additional Copies To Mitch Canada DO; Rosalva Lane, DO
[2017-12-25] MEDS ORDERED: ZYR10 PO (14:36)
[2017-12-25] MEDS ORDERED: FLVHFA220 INH (14:36)
[2017-12-25] MEDS ORDERED: PRED10TA PO (14:36)
[2017-12-25] MEDS ORDERED: OXGN (14:37)
== END 2017-06-26 13:37 | disposition home or self-care (01) | DRG 291 ==
LOC: C.EDB 15:31 → C.MS4W 19:20 → ENRESERV 19:42
PROVIDERS: ADMIT Internal Medicine; ATTEND Family Medicine
DX: I11.0 Hypertensive heart disease with heart failure (principal); J96.01 Acute respiratory failure with hypoxia; J45.901 Unspecified asthma with (acute) exacerbation; I50.33 Acute on chronic diastolic (congestive) heart failure; I42.9 Cardiomyopathy, unspecified; K21.9 Gastro-esophageal reflux disease without esophagitis; E87.6 Hypokalemia; J98.4 Other disorders of lung; J32.9 Chronic sinusitis, unspecified; E66.9 Obesity, unspecified; Z68.37 Body mass index [BMI] 37.0-37.9, adult; R73.03 Prediabetes; F32.9 Major depressive disorder, single episode, unspecified; G47.33 Obstructive sleep apnea (adult) (pediatric)

== ENCOUNTER → 2017-07-04 | Outpatient (CLI) | payer BC, OTHER ==
[~2017-07-04] MED LIST changes: -ALPR-412 PO; +BENZ100C7 PO; -CARV3.12 PO; +CHOL2000 PO; +CRG3125 PO; +CZR25 PO; +FLVHFA220 INH; -FURO-85 PO; +GFNSR600 PO; -LOSA25TA18 PO; +LSX20 PO; +MCRK20 PO; -MONT1TAB3 PO; +NAPR500T3 PO; -OMEP40CA36 PO; +PANT40TA2 PO; +PRD20 PO; -PRED10TA PO; -PRVHFAIN PO; +RANI300T PO; +SNG10 PO; +TIOT1AER2 INH; -VTMD PO; +XNX25 PO; +XPNINS1255 INH; +ZLF/50 PO
[2017-07-04 13:33] LABS: BLOOD UREA NITROGEN 17 mg/dl (7-18); CALCIUM 8.5 mg/dl (8.5-10.1); CARBON DIOXIDE 30 mmol/L (21-32); CREATININE 0.89 mg/dl (0.60-1.20); GLUCOSE 118 mg/dl (70-99); POTASSIUM 3.4 mmol/L (3.5-5.1); SODIUM 140 mmol/L (136-145)
== END | disposition home or self-care (01) ==
LOC: C.LABPBG 10:06
PROVIDERS: ATTEND Family Medicine
DX: E87.6 Hypokalemia (principal)

== ENCOUNTER → 2017-08-29 | Outpatient (CLI) | payer OTHER ==
[~2017-08-29] MED LIST changes: +IPRA1AER2 INH; +LVQ750 PO
[2017-08-29 17:39] LABS: BASO % 0.6 %; BASO ABS # 0.05 K/uL (0-0.2); EOS % 12.4 %; EOS ABS # 1.06 K/uL (0-0.5); HEMATOCRIT 37.3 % (37-47); HEMOGLOBIN 12.3 g/dL (12.0-16.0); IG# 0.03 K/uL (0.00-0.02); LYMPH % 24.6 %; LYMPH ABS # 2.11 K/uL (1.2-3.4); MEAN CELL VOLUME 85.9 fL (80-100); MEAN CORPUSCULAR HEMOGLOBIN 28.3 pg (25-34); MEAN PLATELET VOLUME 10.8 fL (7.4-10.4); NEUT ABS # 4.72 K/uL (1.4-6.5); PLATELET COUNT 290 K/uL (130-400); RED CELL DISTRIBUTION WIDTH CV 14.9 % (11.5-14.5); RED CELL DISTRIBUTION WIDTH SD 46.9 fL (36.4-46.3); WHITE BLOOD COUNT 8.57 K/uL (4.8-10.8)
[2017-08-29 18:06] LABS: BLOOD UREA NITROGEN 12 mg/dl (7-18); CALCIUM 8.6 mg/dl (8.5-10.1); CARBON DIOXIDE 32 mmol/L (21-32); CREATININE 0.77 mg/dl (0.60-1.20); GLUCOSE 91 mg/dl (70-99); POTASSIUM 2.9 mmol/L (3.5-5.1); SODIUM 143 mmol/L (136-145)
== END | disposition home or self-care (01) ==
LOC: C.LABPBG 14:34
PROVIDERS: ATTEND Family Medicine
DX: R06.2 Wheezing (principal); R06.02 Shortness of breath; R05 Cough

== ENCOUNTER 2017-08-31 09:23 | Inpatient (IN) | payer OTHER ==
[2017-08-31] VITALS (8 sets, daily range): BP systolic 113–167; BP diastolic 75–96; PULSE 74–88; TEMP 36.7–37.1; O2SAT 90–92; Ht 170.2 cm; Wt 110.9 kg
[~2017-08-31] VITALS: Ht 170.2 cm; Wt 110.9 kg
[~2017-08-31 09:23] MED LIST changes: -IPRA1AER2 INH; -LVQ750 PO
[2017-08-31] MEDS ORDERED: PNEUMOCOCCAL POLYSACCHARIDES 25 MCG/0.5 ML VIAL/SYR IM. ONE (11:15)
[2017-08-31] MEDS ORDERED: BENZONATATE 100MG CAP PO PRN (11:15)
[2017-08-31] MEDS ORDERED: ALPRAZOLAM 0.25 MG TAB PO PRN (11:15)
[2017-08-31] MEDS ORDERED: ACETAMINOPHEN 325 MG TAB PO PRN (11:15)
[2017-08-31] MEDS: ALBUT/IPRATROP 3MG/0.5MG NEB 3 ML VIAL INH SCH ×3 (11:40→19:07)
[2017-08-31 11:46] LABS: BASO % 0.1 %; BASO ABS # 0.01 K/uL (0-0.2); EOS % 0.3 %; EOS ABS # 0.02 K/uL (0-0.5); HEMATOCRIT 38.8 % (37-47); HEMOGLOBIN 12.8 g/dL (12.0-16.0); IG# 0.04 K/uL (0.00-0.02); LYMPH % 12.2 %; LYMPH ABS # 0.85 K/uL (1.2-3.4); MEAN CELL VOLUME 84.7 fL (80-100); MEAN CORPUSCULAR HEMOGLOBIN 27.9 pg (25-34); MEAN PLATELET VOLUME 10.3 fL (7.4-10.4); MONO % 1.6 %; MONO ABS # 0.11 K/uL (0.11-0.59); NEUT % 85.2 %; NEUT ABS # 5.95 K/uL (1.4-6.5); PLATELET COUNT 313 K/uL (130-400); RED CELL DISTRIBUTION WIDTH CV 14.8 % (11.5-14.5); RED CELL DISTRIBUTION WIDTH SD 46.3 fL (36.4-46.3); WHITE BLOOD COUNT 6.98 K/uL (4.8-10.8)
[2017-08-31] MEDS ORDERED: LEVOFLOXACIN 750 MG TAB PO ONE (12:00)
--- NOTE | 2017-08-31 12:02 | DIAGNOSTIC IMAGING REPORT ---
CHEST 2 VIEWS ROUTINE HISTORY: 62 years-old Female hypoxia ?pna acute hypoxia with possible pneumonia COMPARISON: Chest radiographs 06/25/2017 TECHNIQUE: PA and lateral views of the chest FINDINGS: Cardiac silhouette is upper limits of normal in size. Mild hyperinflation. There is no pneumothorax. Blunting of the costophrenic angles bilaterally suggests trace effusions. Subsegmental left greater than right bibasilar opacities. No lobar airspace consolidation or overt pulmonary edema. Bones of the chest appear grossly intact. Cholecystectomy clips are noted. IMPRESSION: Trace bilateral pleural effusions with subsegmental bibasilar opacities favoring atelectasis with pneumonia thought to be less likely. The above report was generated using voice recognition software. It may contain grammatical, syntax or spelling errors. Electronically signed by: Timur Nye M.D. 08/31/2017 12:01 PM Dictated Date/Time: 08/31/2017 11:59 AM
[2017-08-31 12:18] LABS: ALBUMIN 3.5 gm/dl (3.4-5.0); CALCIUM 9.1 mg/dl (8.5-10.1); CREATININE 0.81 mg/dl (0.60-1.20); POTASSIUM 2.9 mmol/L (3.5-5.1)
[2017-08-31 12:21] LABS: TOTAL PROTEIN 7.5 gm/dl (6.4-8.2)
[2017-08-31] MEDS ORDERED: GUAIFENESIN/CODEINE 100MG/10MG 5ML UDC PO PRN (12:30)
--- NOTE | 2017-08-31 12:40 | History and Physical ---
History & Physical Date & Time of Service: Aug 31, 2017 at 12:30 Chief Complaint: Acute Resp Failure W/ Hypoxia Primary Care Physician: Rosalva Lane DO History of Present Illness Source: patient, spouse Raven is a 62 yo F with hx of asthma and multiple exacerbations requiring admission who presents from her PCPs office for evaluation of hypoxia. She reports over the last 7-10 days she has had a cold with congestion, sore throat , postnasal drip, and severe cough. She feels short of breath with talking or doing basic activities. She went to her PCP 2 days ago, and at that time it was recommended she go to the hospital, which she declined. She was sent home with prednisone taper and started on doxycycline 100mg BID. She says she has taken 60mg prednisone x 3 days and has felt very on edge from it, and not that much better. She feels her breathing remains tight currently. She also reported bilateral leg edema which improved with the use of prednisone. She went back to her PCP's office today and felt more short of breath walking from the car to the office. She was found to have a pulse ox of 86% on room air at that time, and once she ambulated around the office it was 85%. She had also taken her prednisone, doxycycline, and a nebulizer today. She reports her Supervisor [employer] is Dr Canada and she usually takes Spiriva and a Duoneb, but she is unable to afford Spiriva. She also reports a hx of cardiomyopathy many years ago and reports her EF was 25 % at that time, though this has resolved. Last echo in our system shows an EF 55 -70%. She denies ever being intubated for her asthma. She reports she has had multiple courses of PO prednisone which has made her gain lots of weight. She was last admitted in May, and since then has not felt completely right. She says in June she had a GI bug, and in July was recovering from that. Past Medical/Surgical History Medical / Surgical Problems: (1) Acute respiratory failure (2) Asthma (3) Asthma exacerbation (4) Benign hypertension (5) Bronchitis (6) Cardiomyopathy (7) Cardiomyopathy (8) CHF (congestive heart failure) (9) Community acquired pneumonia (10) Failure of outpatient treatment (11) Gastroesophageal reflux disease (12) Pneumonia (13) Respiratory failure (14) Systolic heart failure Family History Cancer Heart disease Hypertension Lung disease Mother smoked, of ovarian cancer at age 71. Father smoked, of lung cancer at age 71. Sister has end stage COPD, was a smoker as well. Social History Lives at home w/her . Nonsmoker but significant secondhand smoke exposure. 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 No alcohol or drug use. Smoking Status: Never Smoker Drug Use: none Marital Status: Housing status: lives with family Occupational Status: employed Immunizations History of Influenza Vaccine: Yes History of Tetanus Vaccine?: Yes History of Pneumococcal: Yes Pneumococcal Date: Oct 21, 2012 History of Hepatitis B Vaccine: No Allergies Coded Allergies: Formoterol (Verified Allergy, Severe, tongue swells, 06/21/17) Mometasone (Verified Allergy, Severe, tongue swells, 06/21/17) Ketorolac (Unverified Allergy, Intermediate, ITCHING, 06/21/17) Latex1 -Allergic Contact Dermititis (Verified Allergy, Mild, Rash/redness , 06/21/17) Home Medications Scheduled Carvedilol (Carvedilol), 3.125 MG PO BID Cholecalciferol (Vitamin D3), 2,000 INTER.UNIT PO DAILY Fluticasone Propionate (Flovent Hfa), 2 PUFFS INH BID Furosemide (Furosemide), 40 MG PO BID Guaifenesin Ext Rel (Mucinex Ext Rel), 600 MG PO Q12 Levalbuterol (Levalbuterol), 1.25 MG INH Q6H Losartan Potassium (Losartan Potassium), 25 MG PO DAILY Montelukast Sod (Montelukast Sodium), 10 MG PO QPM Pantoprazole (Pantoprazole Sodium), 40 MG PO QAM Potassium Chloride (Klor-Con M20), 20 MEQ PO QAM Prednisone (Prednisone), 60 MG PO DAILY Ranitidine Hcl (Zantac), 300 MG PO HS Sertraline HCl (Sertraline HCl), 50 MG PO QAM Tiotropium [place] (Spiriva Respimat), 2 PUFFS INH DAILY Scheduled PRN Alprazolam (Alprazolam), 0.25 MG PO BID PRN for Anxiety Benzonatate (Benzonatate), 100 MG PO TID PRN for Cough Naproxen (Naproxen), 500 MG PO Q12 PRN for Pain Review of Systems Constitutional: + weakness, No fever, No chills, No sweats, No weight loss Eyes: No worsening of vision ENT: No hearing loss Respiratory: + cough, + sputum, + wheezing, + shortness of breath, + dyspnea on exertion, + dyspnea at rest, No hemoptysis Cardiovascular: No chest pain, No orthopnea, No PND, No edema, No claudication Abdomen: No pain, No nausea, No vomiting, No diarrhea Musculoskeletal: No joint pain, No muscle pain Genitourinary - Female: No dysuria, No urinary frequency, No urinary urgency, No urinary incontinence Psychiatric: No depression symptoms, No anhedonism Endocrine: No fatigue, No excessive thirst Hematologic / Lymphatic: No abnormal bleeding/bruising, No clotting problems, No swollen lymph nodes Integumentary: No rash Allergic / Immunologic: + environmental allergies Physical Exam Vital Signs Date Time Temp Pulse Resp B/P (MAP) Pulse Ox O2 Delivery O2 Flow Rate FiO2 08/31/17 11:43 76 16 92 Room Air 08/31/17 10:46 37.1 87 20 167/96 Room Air General Appearance: WD/WN, + mild distress Head: normocephalic, atraumatic Eyes: normal inspection, PERRL ENT: hearing grossly normal Neck: supple, no JVD Respiratory/Chest: + rhonchi (diffuse), + wheezing, + pertinent finding (mild accessorry muscle use, no respiratory distress) Cardiovascular: regular rate, rhythm, no murmur, normal peripheral pulses Abdomen/GI: normal bowel sounds, non tender, soft Back: no CVA tenderness, no muscle spasm Extremities/Musculoskelatal: no calf tenderness, no pedal edema Neurologic/Psych: alert, normal mood/affect, normal reflexes, oriented x 3 Skin: no rash Diagnostics Laboratory Results Results Past 24 Hours Test 08/31/17 11:28 Range/Units White Blood Count 6.98 4.8-10.8 K/uL Red Blood Count 4.58 4.2-5.4 M/uL Hemoglobin 12.8 12.0-16.0 g/dL Hematocrit 38.8 37-47 % Mean Corpuscular Volume 84.7 80-100 fL Mean Corpuscular Hemoglobin 27.9 25-34 pg Mean Corpuscular Hemoglobin Concent 33.0 32-36 g/dl Platelet Count 313 130-400 K/uL Mean Platelet Volume 10.3 7.4-10.4 fL Neutrophils (%) (Auto) 85.2 % Lymphocytes (%) (Auto) 12.2 % Monocytes (%) (Auto) 1.6 % Eosinophils (%) (Auto) 0.3 % Basophils (%) (Auto) 0.1 % Neutrophils # (Auto) 5.95 1.4-6.5 K/uL Lymphocytes # (Auto) 0.85 1.2-3.4 K/uL Monocytes # (Auto) 0.11 0.11-0.59 K/uL Eosinophils # (Auto) 0.02 0-0.5 K/uL Basophils # (Auto) 0.01 0-0.2 K/uL RDW Standard Deviation 46.3 36.4-46.3 fL RDW Coefficient of Variation 14.8 11.5-14.5 % Immature Granulocyte % (Auto) 0.6 % Immature Granulocyte # (Auto) 0.04 0.00-0.02 K/uL Sodium Level 143 136-145 mmol/L Potassium Level 2.9 3.5-5.1 mmol/L Chloride Level 107 98-107 mmol/L Carbon Dioxide Level 26 21-32 mmol/L Anion Gap 10.0 3-11 mmol/L Blood Urea Nitrogen 17 7-18 mg/dl Creatinine 0.81 0.60-1.20 mg/dl Est Creatinine Clear Calc Drug Dose 94.8 ml/min Estimated GFR () 91.5 Estimated GFR (Non- 78.9 BUN/Creatinine Ratio 21.1 10-20 Random Glucose 154 70-99 mg/dl Calcium Level 9.1 8.5-10.1 mg/dl Total Bilirubin 0.5 0.2-1 mg/dl Aspartate Amino Transf (AST/SGOT) 21 15-37 U/L Alanine Aminotransferase (ALT/SGPT) 28 12-78 U/L Alkaline Phosphatase 97 45-117 U/L Total Protein 7.5 6.4-8.2 gm/dl Albumin 3.5 3.4-5.0 gm/dl Globulin 4.0 2.5-4.0 gm/dl Albumin/Globulin Ratio 0.9 0.9-2 Diagnostic Radiology CXR IMPRESSION: Trace bilateral pleural effusions with subsegmental bibasilar opacities favoring atelectasis with pneumonia thought to be less likely. Impression Assessment and Plan 62 yo F with asthma (likely has components of COPD) who presents with acute asthma exacerbation, likely from preceding URI. Acute asthma exacerbation - Will switch to Levaquin 750mg daily - Will go to Prednisone 40mg starting tomorrow then slowly taper - Teseleonora Joshi, Mucinex - Nebulizers q6h - Will consult her Supervisor [employer] as well - Will consider Theravest / NAC nebs if is struggling to expectorate secretions Hx of CHF - Will monitor for signs of fluid overload Hypertension - Continue Losartan 25mg, Carvedilol 3.125mg BID GERD - Continue Protonix and Zantac Depression - Continue Zoloft 50mg VTE: Lovenox Dispo: Admitted to Med/Surg Code status: Full Resident Physician Supervision Note: I interviewed and examined the patient. Discussed with Dr. Garza and agree with findings and plan as documented in the note. Any exceptions or clarifications are listed here: None We were called by the outpatient physician stating that the patient was doing worse with exertional hypoxia and a infiltration from an x-ray at outside hospital. Patient does state she was feeling worse not better despite having doxycycline and prednisone at home. However upon our evaluation here she did have a very coarse rough cough and some respiratory wheezing but her x-ray at our facility did not show any infiltrate patient will be placed on oral antibiotic and oral prednisone will do 2 step for hypoxia in the morning patient does follow with pulmonary medicine and a consultation replaced Her vital signs are reviewed there is no hypoxia at rest her cardiac exam is regular but distant her lungs have diminished breath sounds at the bases she is taking shallow breaths there is some very fine anticipatory wheezes at the bases but she does have a coarse raspy cough during the rest of the exam otherwise she is alert oriented appropriate her abdominal exam is benign Asthma exacerbation plus minus bronchitis this patient may be partially treated as she did have outpatient antibiotics and steroids will continue oral levofloxacin and prednisone therapy as well as inhaled medications and perform a two-step oxygen ambulatory test tomorrow to determine if she needs outpatient laboratory oxygen during this acute event Documented By: Perez Faulkner Advanced Directives Existing Living Will: No Existing Power of Kosher Dietary Service Supervisor: No Resuscitation Status VTE Prophylaxis Will order VTE Prophylaxis: Yes Resident Tracking Resident Involvement: Resident Care Provided Care Provided: Adult Hospital Medicine
[2017-08-31] MEDS: ENOXAPARIN 40 MG/0.4 ML SYR SQ SCH (12:51)
[2017-08-31] MEDS ORDERED: MAGNESIUM SULFATE 1GM / D5W 1 GM in PREMIXED IN D5W 100 ML IV SCH (17:30)
[2017-08-31] MEDS: POTASSIUM CHLR 10 MEQ / WTR 10 MEQ in PREMIXED WATER 100 ML IV SCH ×3 (18:22→21:49)
--- NOTE | 2017-08-31 19:02 | Pulmonary Consultation ---
History General Date of Service: Aug 31, 2017. Stated Complaint: Hypoxia, shortness of breath HPI The patient is a 62 year old female with h/o asthma, was sent from the PCPs office for hypoxia. She has been fighting symptoms of cold, cough for approx a week. She was advised to come to ED two days ago but she sought outpatient treatment instead, with Prednisone and doxycycline. Also noticed significant LE edema prior to starting the Prednisone. Today she revisited her PCP and was sent to ED. She denies fever or chills, denies sick contacts, denies recent travel. This episode is somewhat typical of her, having had multiple admissions like this in the last 4-5 years. She was diagnosed with asthma late in life. She followed with Dr Pickens, now with Dr Canada. Her medical history is more complex, including possible diastolic non- ischemic heart failure (clean cath per patient), had systolic heart failure that appeared to have normalized. She is on chronic diuretic therapy Since admission, she feels much better at rest, still has hypoxia with exertion , but feels much more comfortable Review of Systems Per HPI, all other systems reviewed and negative Past Medical History Past Medical History: Asthma Non-ischemic cardiomyopathy HTN Depression Appendectomy Cholecystectomy Sinus surgery Tonsillectomy Knee surgery Family History Cancer Heart disease Hypertension Lung disease Social History Hx Tobacco Use In Past Year?: No Smoking Status: Never Smoker Marital status: Housing status: lives with family Occupational Status: employed Immunizations History of Influenza Vaccine: Yes History of Tetanus Vaccine?: Yes History of Pneumococcal: Yes Pneumococcal Date: Oct 21, 2012 History of Hepatitis B Vaccine: No History of MDRO History of MDRO: No Allergies Coded Allergies: Formoterol (Verified Allergy, Severe, tongue swells, 06/21/17) Mometasone (Verified Allergy, Severe, tongue swells, 06/21/17) Ketorolac (Unverified Allergy, Intermediate, ITCHING, 06/21/17) Latex1 -Allergic Contact Dermititis (Verified Allergy, Mild, Rash/redness , 06/21/17) Current Medications Reported Home Medications Medications Dose Route/Sig Max Daily Dose Days Date Category Dose Instructions Prednisone 20 Mg Tab 60 Mg PO DAILY 06/26/17 Rx x 1 day then 50mg daily x2 days, then decrease by 10mg every 2 days until gone Flovent Hfa (Fluticasone Propionate) 120 Puffs/96981 Mcg Aero 2 Puffs INH BID 30 06/26/17 Rx Mucinex Ext Rel (Guaifenesin) 600 Mg Tabcr 600 Mg PO Q12 15 06/26/17 Rx OTC Benzonatate 100 Mg Cap 100 Mg PO TID PRN 7 06/26/17 Rx Klor-Con M20 (Potassium Chloride) 20 Meq Tabcr 20 Meq PO QAM 30 06/26/17 Rx Carvedilol 3.125 Mg Tab 3.125 Mg PO BID 30 06/26/17 Rx Levalbuterol 1.25 Mg/0.5 Ml Nebu 1.25 Mg INH Q6H 30 06/26/17 Rx and can take an extra treatment [id number] prn cough/wheezing Furosemide 20 Mg Tab 40 Mg PO BID 30 06/22/17 Rx Vitamin D3 (Cholecalciferol) 2,000 Unit Cap 2,000 Inter.unit PO DAILY 06/21/17 Reported Spiriva Respimat (Tiotropium [place]) 1.25 Mcg/Act Aer 2 Puffs INH DAILY 06/21/17 Reported Alprazolam 0.25 Mg Tab 0.25 Mg PO BID PRN 06/21/17 Reported Losartan Potassium 25 Mg Tab 25 Mg PO DAILY 06/21/17 Reported Pantoprazole Sodium (Pantoprazole) 40 Mg Tab 40 Mg PO QAM 06/21/17 Reported Zantac (Ranitidine Hcl) 300 Mg Tab 300 Mg PO HS 06/21/17 Reported Montelukast Sodium (Montelukast Sod) 10 Mg Tab 10 Mg PO QPM 06/21/17 Reported Sertraline HCl 50 Mg Tab 50 Mg PO QAM 07/09/16 Reported Naproxen 500 Mg Tab 500 Mg PO Q12 PRN 06/21/14 Reported Physical Physical Exam Vital Signs: Date Time Temp Pulse Resp B/P (MAP) Pulse Ox O2 Delivery O2 Flow Rate FiO2 08/31/17 16:15 91 Room Air 08/31/17 15:58 82 16 91 Room Air 08/31/17 15:11 36.7 88 18 124/80 (95) 90 Room Air 08/31/17 11:43 76 16 92 Room Air 08/31/17 10:46 37.1 87 20 167/96 Room Air General: Obese female, NAD, AAO x 3 Heent: No oral thrush, NC/AT, no stridor, no palpable neck lymphadenopathy CVS: S1S2 regular Lungs: Coarse breath sounds b/l, expiratory wheezing Abd: Soft Ext: Trace pedal edema Diagnostics Labs Results Past 24 Hours Test 08/31/17 11:28 Range/Units White Blood Count 6.98 4.8-10.8 K/uL Red Blood Count 4.58 4.2-5.4 M/uL Hemoglobin 12.8 12.0-16.0 g/dL Hematocrit 38.8 37-47 % Mean Corpuscular Volume 84.7 80-100 fL Mean Corpuscular Hemoglobin 27.9 25-34 pg Mean Corpuscular Hemoglobin Concent 33.0 32-36 g/dl Platelet Count 313 130-400 K/uL Mean Platelet Volume 10.3 7.4-10.4 fL Neutrophils (%) (Auto) 85.2 % Lymphocytes (%) (Auto) 12.2 % Monocytes (%) (Auto) 1.6 % Eosinophils (%) (Auto) 0.3 % Basophils (%) (Auto) 0.1 % Neutrophils # (Auto) 5.95 1.4-6.5 K/uL Lymphocytes # (Auto) 0.85 1.2-3.4 K/uL Monocytes # (Auto) 0.11 0.11-0.59 K/uL Eosinophils # (Auto) 0.02 0-0.5 K/uL Basophils # (Auto) 0.01 0-0.2 K/uL RDW Standard Deviation 46.3 36.4-46.3 fL RDW Coefficient of Variation 14.8 11.5-14.5 % Immature Granulocyte % (Auto) 0.6 % Immature Granulocyte # (Auto) 0.04 0.00-0.02 K/uL Sodium Level 143 136-145 mmol/L Potassium Level 2.9 3.5-5.1 mmol/L Chloride Level 107 98-107 mmol/L Carbon Dioxide Level 26 21-32 mmol/L Anion Gap 10.0 3-11 mmol/L Blood Urea Nitrogen 17 7-18 mg/dl Creatinine 0.81 0.60-1.20 mg/dl Est Creatinine Clear Calc Drug Dose 94.8 ml/min Estimated GFR () 91.5 Estimated GFR (Non- 78.9 BUN/Creatinine Ratio 21.1 10-20 Random Glucose 154 70-99 mg/dl Calcium Level 9.1 8.5-10.1 mg/dl Total Bilirubin 0.5 0.2-1 mg/dl Aspartate Amino Transf (AST/SGOT) 21 15-37 U/L Alanine Aminotransferase (ALT/SGPT) 28 12-78 U/L Alkaline Phosphatase 97 45-117 U/L Total Protein 7.5 6.4-8.2 gm/dl Albumin 3.5 3.4-5.0 gm/dl Globulin 4.0 2.5-4.0 gm/dl Albumin/Globulin Ratio 0.9 0.9-2 Diagnostic Radiology CXR: IMPRESSION: Trace bilateral pleural effusions with subsegmental bibasilar opacities favoring atelectasis with pneumonia thought to be less likely. Impression Assessment and Plan 62 year old female with h/o asthma present with respiratory failure secondary to asthma exacerbation Acute respiratory failure Asthma exacerbation CHF HTN Plan: Currently on Prednisone 40 mg daily. Since she is improving, continue on this dose Around the clock bronchodilators Continue Levaquin Antitussives, Singulair Will eventually resume the inhaled steroids. She is also on Spiriva, which can be held while she is on short acting antimuscarinic agent (ie. ipratropium) Check for flu Consider resuming diuretics Check LE Doppler given recent swelling. I really doubt b/l DVT, it is low probability. DVT prophylaxis: Lovenox Note Total Time (mins): 25
--- NOTE | 2017-08-31 20:05 | DIAGNOSTIC IMAGING REPORT ---
ULTRASOUND BILATERAL LOWER EXTREMITY VENOUS CLINICAL HISTORY: Lower extremity edema. COMPARISON STUDY: No priors. TECHNIQUE: Real-time, grayscale, and color Doppler sonography of the deep veins of the right and left lower extremity was performed from the inguinal crease to the calf. Compression and augmentation were utilized. FINDINGS: There is no sonographic evidence of deep venous thrombosis identified in the right or left lower extremity. The common femoral, superficial femoral, and popliteal veins are patent and normally compressible bilaterally. The greater saphenous vein and the profunda femoris vein at the junction with the common femoral vein are clear in both legs. The visualized calf veins are patent bilaterally. A left popliteal cyst measures 6.7 x 2.4 x 2.8 cm. IMPRESSION: 1. There is no sonographic evidence of deep venous thrombosis identified in the right or left lower extremity. 2. Left-sided Chilel's cyst. Electronically signed by: Guero Singh M.D. 08/31/2017 8:04 PM Dictated Date/Time: 08/31/2017 8:03 PM
[2017-08-31] MEDS: GUAIFENESIN 600 MG TABCR PO SCH (20:36)
[2017-08-31] MEDS: CARVEDILOL 3.125 MG TAB PO SCH (20:36)
[2017-08-31] MEDS: POTASSIUM CHLORIDE 20 MEQ TABCR PO SCH (20:36)
[2017-08-31] MEDS: FLUTICASONE HFA 220 MCG INHALER INH SCH (20:37)
[2017-08-31] MEDS ORDERED: RANITIDINE HCL 150 MG TAB PO SCH (21:00)
[2017-08-31] MEDS ORDERED: MONTELUKAST SOD 10 MG TAB PO SCH (21:00)
[2017-08-31 23:31] LABS: INFLUENZA B ANTIGEN Neg for Influ B (NEG)
[2017-09-01 06:51] VITALS: PULSE 68; O2SAT 94
[2017-09-01] MEDS: ALBUT/IPRATROP 3MG/0.5MG NEB 3 ML VIAL INH SCH ×2 (06:51→10:56)
[2017-09-01 07:01] VITALS: BP 125/76; PULSE 66; TEMP 36.5; O2SAT 92
[2017-09-01] MEDS: FLUTICASONE HFA 220 MCG INHALER INH SCH (07:37)
[2017-09-01] MEDS: ENOXAPARIN 40 MG/0.4 ML SYR SQ SCH (07:37)
[2017-09-01] MEDS: CARVEDILOL 3.125 MG TAB PO SCH (07:38)
[2017-09-01] MEDS: GUAIFENESIN 600 MG TABCR PO SCH (07:38)
[2017-09-01] MEDS: POTASSIUM CHLORIDE 20 MEQ TABCR PO SCH (07:38)
[2017-09-01 07:52] LABS: BASO % 0.3 %; BASO ABS # 0.03 K/uL (0-0.2); EOS % 1.6 %; EOS ABS # 0.15 K/uL (0-0.5); HEMATOCRIT 35.7 % (37-47); HEMOGLOBIN 12.1 g/dL (12.0-16.0); IG# 0.05 K/uL (0.00-0.02); LYMPH % 40.8 %; LYMPH ABS # 3.83 K/uL (1.2-3.4); MEAN CELL VOLUME 85.4 fL (80-100); MEAN CORPUSCULAR HEMOGLOBIN 28.9 pg (25-34); MEAN CORPUSCULAR HGB CONC 33.9 g/dl (32-36); MEAN PLATELET VOLUME 10.2 fL (7.4-10.4); MONO % 6.6 %; MONO ABS # 0.62 K/uL (0.11-0.59); NEUT % 50.2 %; PLATELET COUNT 291 K/uL (130-400); RED CELL DISTRIBUTION WIDTH CV 14.8 % (11.5-14.5); RED CELL DISTRIBUTION WIDTH SD 46.6 fL (36.4-46.3); WHITE BLOOD COUNT 9.38 K/uL (4.8-10.8)
[2017-09-01 08:00] VITALS: O2SAT 92
[2017-09-01 08:18] LABS: CALCIUM 8.7 mg/dl (8.5-10.1); CREATININE 0.91 mg/dl (0.60-1.20); POTASSIUM 2.8 mmol/L (3.5-5.1)
[2017-09-01] MEDS ORDERED: LOSARTAN POTASSIUM 25 MG TAB PO SCH (09:00)
[2017-09-01] MEDS ORDERED: TIOTROPIUM BROMIDE INH SCH (09:00)
[2017-09-01] MEDS ORDERED: PANTOprazole SOD 40 MG TAB PO SCH (09:00)
[2017-09-01] MEDS ORDERED: SERTRALINE HCL 50 MG TAB PO SCH (09:00)
[2017-09-01] MEDS ORDERED: IPRA1AER2 INH (10:19)
[2017-09-01] MEDS ORDERED: MCRK20 PO (10:19)
[2017-09-01] MEDS ORDERED: LVQ750 PO (10:19)
--- NOTE | 2017-09-01 10:23 | Discharge Instructions ---
Discharge Instructions Date of Service Sep 01, 2017. Admission Reason for Admission: Acute Resp Failure W/ Hypoxia Discharge Discharge Diagnosis / Problem: Asthma exacerbation, Hypokalemia Discharge Goals Goal(s): Improve disease control Activity Recommendations Activity Limitations: per Instructions/Follow-up section Lifting Limitations: gradually increase as tolerated Exercise/Sports Limitations: as tolerated May Resume Sexual Activity: when tolerated Shower/Bathe: no limitations Driving or Machine Use: resume 1 day after discharge . Instructions / Follow-Up Instructions / Follow-Up - Follow up with Dr Lane early next week - Your antibiotic was changed to Levaquin, since you started 2 days of Doxycycline, we will finish up 5 days of Levaquin to complete 7 days of antibiotics. 3 more days of the antibiotic was sent into your pharmacy. - We also sent in Combivent for a SHORT-ACTING inhaler, to use instead of Spiriva. This is a combination of Ipratropium (the medication in Spiriva) and Albuterol. Use this when you know something will make you short of breath . - CONTINUE the steroid medications and taper that you currently are on. CONTINUE using the nebulizers REGULARLY as well. - Keep taking Potassium supplements since your potassium was low, which is likely because of all the inhalers. - Your flu test was negative. - The test for blood clots in your leg was negative. If you notice any worsening in your breathing, chest pain, or unable to get a sentence out, please return to the ED. Current Hospital Diet Patient's current hospital diet: Regular Diet Discharge Diet Recommended Diet: Regular Diet Pending Studies Studies pending at discharge: no Medical Emergencies . Who to Call and When: Medical Emergencies: If at any time you feel your situation is an emergency, please call 911 immediately. . Non-Emergent Contact Non-Emergency issues call your: Primary Care Provider . . "Provider Documentation" section prepared by Melisa Garza. .
--- NOTE | 2017-09-01 10:24 | Discharge Summary ---
Discharge Summary Date of Service Sep 01, 2017. Discharge Summary Admission Date: Aug 31, 2017 at 10:08 Discharge Date: Sep 01, 2017 Discharge Disposition: Home Principal Diagnosis: Hypoxia, Asthma exacerbation Immunizations: Have You Had Influenza Vaccine: Yes History of Tetanus Vaccine?: Yes History of Pneumococcal: Yes Pneumococcal Date: Oct 21, 2012 History of Hepatitis B Vaccine: No Medication Reconciliation New Medications: Ipratropium-Albuterol (Combivent Respimat) 1 Aer Aer 1 PUFFS INH QID for 30 Days, #1 INH Levofloxacin (Levofloxacin) 750 Mg Tab 750 MG PO DAILY@11 for 3 Days, #3 TAB Changed Medications: Potassium Chloride (Klor-Con M20) 20 Meq Tabcr 40 MEQ PO BID for 4 Days, #16 TAB (Changed from: 20 MEQ; QAM; 30; 30) Continued Medications: Alprazolam (Alprazolam) 0.25 Mg Tab 0.25 MG PO BID PRN for Anxiety Benzonatate (Benzonatate) 100 Mg Cap 100 MG PO TID PRN for Cough for 7 Days, #21 CAP Carvedilol (Carvedilol) 3.125 Mg Tab 3.125 MG PO BID for 30 Days, #60 TAB Cholecalciferol (Vitamin D3) 2,000 Unit Cap 2000 INTER.UNIT PO DAILY, CAP Fluticasone Propionate (Flovent Hfa) 120 Puffs/04178 Mcg Aero 2 PUFFS INH BID for 30 Days, #1 INHALER Furosemide (Furosemide) 20 Mg Tab 40 MG PO BID for 30 Days Guaifenesin Ext Rel (Mucinex Ext Rel) 600 Mg Tabcr 600 MG PO Q12 for 15 Days, #30 TAB OTC Levalbuterol (Levalbuterol) 1.25 Mg/0.5 Ml Nebu 1.25 MG INH Q6H for 30 Days, #1 BOX and can take an extra treatment [id number] prn cough/wheezing Losartan Potassium (Losartan Potassium) 25 Mg Tab 25 MG PO DAILY Montelukast Sod (Montelukast Sodium) 10 Mg Tab 10 MG PO QPM Naproxen (Naproxen) 500 Mg Tab 500 MG PO Q12 PRN for Pain Pantoprazole (Pantoprazole Sodium) 40 Mg Tab 40 MG PO QAM Prednisone (Prednisone) 20 Mg Tab 60 MG PO DAILY, #18 TAB x 1 day then 50mg daily x2 days, then decrease by 10mg every 2 days until gone Ranitidine Hcl (Zantac) 300 Mg Tab 300 MG PO HS Sertraline HCl (Sertraline HCl) 50 Mg Tab 50 MG PO QAM Discontinued Medications: Tiotropium [place] (Spiriva Respimat) 1.25 Mcg/Act Aer 2 PUFFS INH DAILY, INHALER Discharge Exam Review of Systems: Constitutional: No fever, No chills, No sweats Eyes: No worsening of vision, No eye pain Respiratory: + dyspnea on exertion, No cough, No sputum, No wheezing, No dyspnea at rest, No hemoptysis Cardiovascular: No chest pain, No orthopnea Abdomen: No pain, No nausea, No vomiting Musculoskeletal: No joint pain, No muscle pain Genitourinary - Female: No dysuria, No urinary frequency, No urinary urgency , No urinary incontinence, No hematuria Neurologic: No memory loss, No paralysis, No weakness Psychiatric: No depression symptoms Endocrine: No fatigue Hematologic / Lymphatic: No abnormal bleeding/bruising Physical Exam: General Appearance: WD/WN, no apparent distress Eyes: normal inspection, PERRL ENT: hearing grossly normal Neck: supple, no JVD Respiratory/Chest: + pertinent finding (improved significantly from yesterday, less wheeze and rhonchi overall, but still present at bases) Cardiovascular: regular rate, rhythm, no murmur, normal peripheral pulses Abdomen / GI: normal bowel sounds, non tender, soft Extremities: no calf tenderness, no pedal edema Neurologic/Psychiatric: alert, normal mood/affect, oriented x 3 Skin: no rash Hospital Course HPI: Raven is a 62 yo F with hx of asthma and multiple exacerbations requiring admission who presents from her PCPs office for evaluation of hypoxia. She reports over the last 7-10 days she has had a cold with congestion, sore throat , postnasal drip, and severe cough. She feels short of breath with talking or doing basic activities. She went to her PCP 2 days ago, and at that time it was recommended she go to the hospital, which she declined. She was sent home with prednisone taper and started on doxycycline 100mg BID. She says she has taken 60mg prednisone x 3 days and has felt very on edge from it, and not that much better. She feels her breathing remains tight currently. She also reported bilateral leg edema which improved with the use of prednisone. She went back to her PCP's office today and felt more short of breath walking from the car to the office. She was found to have a pulse ox of 86% on room air at that time, and once she ambulated around the office it was 85%. She had also taken her prednisone, doxycycline, and a nebulizer today. She reports her Director Institution is Dr Canada and she usually takes Spiriva and a Duoneb, but she is unable to afford Spiriva. She also reports a hx of cardiomyopathy many years ago and reports her EF was 25 % at that time, though this has resolved. Last echo in our system shows an EF 55 -70%. She denies ever being intubated for her asthma. She reports she has had multiple courses of PO prednisone which has made her gain lots of weight. She was last admitted in May, and since then has not felt completely right. She says in June she had a GI bug, and in July was recovering from that. HOSPITAL COURSE: She was continued on PO steroids, her abx were switched to Levaquin. She had dopplers to rule out DVT. She ambulated independently and was not hypoxic. She was DC'd in good condition on 09/01/17. Acute asthma exacerbation - Will switch to Levaquin 750mg daily, finish to complete 7 day course of ABx. - Will continue her Prednisone taper - Penny Carmichael - Nebulizers q6h regularly - Seen by Pulm during admission - Changed Spiriva to Combivent Hx of CHF - No evidence of fluid overload currently Hypertension - Continue Losartan 25mg, Carvedilol 3.125mg BID GERD - Continue Protonix and Zantac Depression - Continue Zoloft 50mg VTE: Lovenox Code status: Full Resident Physician Supervision Note: I interviewed and examined the patient. Discussed with Dr. Garza and agree with findings and plan as documented in the note. Any exceptions or clarifications are listed here: None Patient is then quite well unclear what was happening at the doctor's office but she started on quite nicely while she is here to be discharged on tapering doses of prednisone she was seen in the day of her discharge vital signs are stable her lungs were clear she was maintaining good saturation on room air she is discharged home to complete her antibiotic course and steroid taper Documented By: Perez Faulkner Total Time Spent: Greater than 30 minutes This includes examination of the patient, discharge planning, medication reconciliation, and communication with other providers. Discharge Instructions Please refer to the electronic Patient Visit Report (Discharge Instructions) for additional information. Follow-Up - With PCP within a week - With Pulm within a month Additional Copies To Rosalva Lane, Resident Tracking Resident Involvement: Resident Care Provided Care Provided: Adult [facility]
[2017-09-01 10:29] VITALS: BP 125/76; PULSE 66; TEMP 36.5; O2SAT 92
[2017-09-01 10:57] VITALS: PULSE 73; O2SAT 93
[2017-09-01] MEDS ORDERED: LEVOFLOXACIN 750 MG TAB PO SCH (11:00)
== END 2017-09-01 12:29 | disposition home or self-care (01) | DRG 202 ==
LOC: C.MS2W 10:08
PROVIDERS: ADMIT Internal Medicine; ATTEND Internal Medicine
DX: J45.901 Unspecified asthma with (acute) exacerbation (principal); J96.01 Acute respiratory failure with hypoxia; I11.0 Hypertensive heart disease with heart failure; I50.9 Heart failure, unspecified; R60.0 Localized edema; K21.9 Gastro-esophageal reflux disease without esophagitis; F32.9 Major depressive disorder, single episode, unspecified; Z79.52 Long term (current) use of systemic steroids; Z79.899 Other long term (current) drug therapy; Z77.22 Contact with and (suspected) exposure to environmental tobacco smoke (acute) (chronic); Z91.040 Latex allergy status; Z88.8 Allergy status to other drugs, medicaments and biological substances; Z80.1 Family history of malignant neoplasm of trachea, bronchus and lung; Z83.6 Family history of other diseases of the respiratory system

== ENCOUNTER → 2017-10-18 | Outpatient (CLI) | payer BC, OTHER ==
[~2017-10-18] MED LIST changes: +LVQ750 PO; +NAPR-1231 PO; -NAPR500T3 PO; -TIOT1AER2 INH
--- NOTE | 2017-10-21 18:52 | POLYSOMNOGRAPH REPORT ---
CLINICAL DATA: The patient is a 62-year-old female who has a history of snoring, observed apneas, fatigue, and daytime somnolence. Her [place] sleepiness scale score is 9. She has a history of cardiomyopathy. Her BMI is elevated at 38.06. On the evening of 10/18/2017, a home sleep apnea test was performed using the [employer] type 3 monitor. RECORDING RESULTS: Total recording time was 10 hours. The patient's estimated sleep time was 7.8 hours. RESPIRATORY DATA: The patient had a total of 88 respiratory events including 3 obstructive apneas, 1 central apnea, and 84 hypopneas. Hypopneas were scored according to the 4% desaturation rule. The maximum respiratory event was 51 seconds. The ERIC was elevated at 11.3 events per hour. This represents mild sleep apnea. OXIMETRY DATA: Saturations were as low throughout the night. The minimum saturation was 76%. The mean saturation was 86%. There was a total of 447 minutes with saturations less than 89%. HEART RATE DATA: The minimum heart rate was 48 beats per minute. The mean heart rate was 76 beats per minute. SNORING DATA: Snoring was present throughout the test. IMPRESSION: Obstructive sleep apnea. RECOMMENDATIONS: 1. It is advised that the patient be given a trial of nasal CPAP. This could be done by a referral to the sleep lab for an in-lab titration. Alternatively, she could have treatment with auto CPAP. 2. Weight loss is advised in light of the elevation of body mass index of 38.06. 3. If possible, the patient should avoid sleeping in the supine position. 4. The patient should be advised of the appropriate principles of sleep hygiene including having a regular sleep-wake schedule and allowing approximately 7.5-8 hours of sleep per night.
== END | disposition home or self-care (01) ==
LOC: C.NEUR 07:45
PROVIDERS: ATTEND Internal Medicine Pulmonary Disease
DX: G47.33 Obstructive sleep apnea (adult) (pediatric) (principal)

== ENCOUNTER → 2017-11-11 | Outpatient (CLI) | payer OTHER ==
--- NOTE | 2017-11-11 16:37 | DIAGNOSTIC IMAGING REPORT ---
ULTRASOUND RIGHT LOWER EXTREMITY VENOUS CLINICAL HISTORY: Right leg pain and swelling. COMPARISON STUDY: Bilateral lower extremity venous ultrasound dated 08/31/2017. TECHNIQUE: Real-time, grayscale, and color Doppler sonography of the deep veins of the right lower extremity was performed from the inguinal crease to the calf. Compression and augmentation were utilized. FINDINGS: There is no sonographic evidence of deep venous thrombosis identified in the right lower extremity. The common femoral, superficial femoral, and popliteal veins are patent and normally compressible. The greater saphenous vein and the profunda femoris vein at the junction with the common femoral vein are clear. The visualized calf veins are patent. IMPRESSION: There is no sonographic evidence of deep venous thrombosis identified in the right lower extremity. Electronically signed by: Guero Singh M.D. 11/11/2017 4:36 PM Dictated Date/Time: 11/11/2017 4:35 PM
== END | disposition home or self-care (01) ==
LOC: C.ULTR 15:39
PROVIDERS: ATTEND Family Medicine
DX: M25.561 Pain in right knee (principal); M17.11 Unilateral primary osteoarthritis, right knee

== ENCOUNTER 2018-10-16 13:06 | Inpatient (IN) ==
[2018-10-16] MEDS ORDERED: methylPREDNISolone 125 MG/2 ML VIAL IV STA (13:22)
[2018-10-16] MEDS ORDERED: BUDESONIDE/FORMOTEROL FUMARATE 160/4.5 60 PUFFS/INHALER INH STA (13:22)
[2018-10-16] MEDS ORDERED: MAGNESIUM SULFATE / D5W 1 GM/100 ML BAG IV ONE (13:22)
[2018-10-16] MEDS ORDERED: ALBUT/IPRATROP 3MG/0.5MG NEB 3 ML VIAL NEB ONE (13:22)
--- NOTE | 2018-10-16 13:47 | XRay Report ---
XR chest 1V portable CLINICAL HISTORY: Chest Pain dyspnea COMPARISON STUDY: 08/04/2018 FINDINGS: Mild stable cardia megaly. Slight increase in bronchovascular prominence compared to the pr ior study. Slight increase in basilar interstitial prominence. IMPRESSION: Findings of early congestive failure. The above report was generated using voice recognition software. It may contain grammatical, syntax or spelling errors. Electronically signed by: Renard Godinez M.D. 10/16/2018 1:46 PM
[2018-10-16 13:53] LABS: Basophils # (auto) 0.01 K/uL (0-0.2); Basophils % (auto) 0.1 %; Hematocrit (blood only) 36.4 % (37-47); Immature Granulocytes # (auto) 0.02 K/uL (0.00-0.02); Immature Granulocytes % (auto) 0.3 %; Lymphocytes # (auto) 1.08 K/uL (1.2-3.4); Lymphocytes % (auto) 15.3 %; Mean Platelet Volume 10.2 fL (7.4-10.4); Monocytes # (auto) 0.68 K/uL (0.11-0.59); Monocytes % (auto) 9.6 %; Neutrophils # (auto) 5.26 K/uL (1.4-6.5); Neutrophils % (auto) 74.7 %; Platelet Count 220 K/uL (130-400); RDW Coefficient of Variation 15.5 % (11.5-14.5); RDW Standard Deviation 46.7 fL (36.4-46.3); Red Blood Count 4.44 M/uL (4.2-5.4); White Blood Count 7.05 K/uL (4.8-10.8)
[2018-10-16] MEDS ORDERED: FUROSEMIDE 40 MG/4 ML VIAL IV STA (13:53)
[2018-10-16 14:09] LABS: Alanine Aminotransferase 23 U/L (12-78); Albumin Level 3.2 gm/dl (3.4-5.0); Aspartate Aminotransferase 16 U/L (15-37); BUN Creatinine Ratio 10.9 (10-20); Blood Urea Nitrogen 8 mg/dl (7-18); Calcium 8.9 mg/dl (8.5-10.1); Carbon Dioxide 27 mmol/L (21-32); Chloride 106 mmol/L (98-107); Creatinine Clr Calc Pharmacy 111.4 ml/min; Est GFR (African American) 108.4; Est GFR (Non-African American) 93.5; Glucose 106 mg/dl (70-99); Potassium 3.1 mmol/L (3.5-5.1); Sodium 142 mmol/L (136-145)
[2018-10-16 14:14] LABS: Albumin Globulin Ratio 0.9 (0.9-2); Alkaline Phosphatase 105 U/L (45-117); Bilirubin,Total 0.9 mg/dl (0.2-1); Creatine Kinase 41 U/L (26-192); Creatine Kinase MB < 1.0 ng/ml (0.5-3.6); Globulin 3.4 gm/dl (2.5-4.0); NT Pro B Type Natriuretic Pept 276 pg/ml (0-900); Total Protein 6.6 gm/dl (6.4-8.2); Troponin I < 0.015 ng/ml (0-0.045)
[2018-10-16 14:34] LABS: Influenza A virus by PCR Neg for Influ A (Neg); Influenza B virus by PCR Neg for Influ B (Neg)
[2018-10-16] MEDS ORDERED: POTASSIUM CHLORIDE 10 MEQ TABCR PO STA (14:34)
[2018-10-16] MEDS ORDERED: LEVOFLOXACIN/D5W 750 MG/150 ML BAG IV STA (15:30)
[2018-10-16] MEDS: POTASSIUM CHLORIDE / WTR 10 MEQ/100 ML PLCT IV SCH ×2 (15:34→16:39)
--- NOTE | 2018-10-16 17:24 | History & Physical Report ---
Date of Service October 16, 2018 Assessment & Plan (1) Acute respiratory failure with hypoxia: Patient presenting with acute respiratory failure with hypoxia. 86% on room air. Symptoms have been progressive over the last 3 days. Presently she is doing fairly well on 3L NC, with saturation 89 - 92%. Ddx to include acute exacerbation of asthma, decompensated diastolic CHF. Patient with subjective fevers/chills, ?infectious process. No leukocytosis. No peripheral eosiniphilia -Admit to medical floor -DuoNeb q 4 hours -Albuterol q 2 hours PRN -Pulmicort respules BID scheduled -Supplemental O2 as needed to maintain saturation >92% -Humidify O2 -Doxycycline 100mg IV BID Present on Admission?: Yes (2) Acute on chronic diastolic CHF (congestive heart failure): Patient reports orthopnea, weight gain and edema. Weight today is 116.7kg which is lower than her discharge weight of 117.6 in July. Her home Lasix is 60mg po qAM and 40mg po qHS. She reports compliance with this medication and with a low sodium diet. Although she did have a little bit of ham on Easter. Her symptoms and CXR suggest CHF exacerbation -Diurese with Lasix 40mg IV BID -Check BMP BID while diuresing -Daily weights -Low Na diet, fluid restriction of 1500mL/day -Continue Carvedilol -Continue Losartan daily Present on Admission?: Yes (3) Asthma: Patient with severe persistent asthma, eosinophilic type. She presents with respiratory distress and hypoxia most likely secondary to underlying CHF + asthma. Administered Lasix and Solumedrol in ER. She has been on Spiriva and Symbicort in the past without effect, Dulera caused severe itching, Breo Ellipta caused headaches. Budesonide nebs she has been using PRN. -Admit to medical floor as above -Solumedrol 40mg IV TID -Doxycycline 100mg IV BID -DuoNebs and Albuterol PRN -Budesonide BID scheduled -Start Singulair 10mg po qPM -Patient to continue benralizumab injections outpatient per [facility] -Continue Protonix and Ranitidine for control of GERD -Continue Azelastine nasal spray for control of rhinitis -Will add [place] nasal spray as well, ?flonase -Consider Pulmonary consult inpatient vs routine outpatient followup Present on Admission?: Yes (4) Diabetes: Blood sugar 106 today. Well controlled on Metformin BID -Hold Metformin while inpatient -CC diet as tolerated -ISS Present on Admission?: Yes (5) Hypokalemia: K=3.1. Patient given 50mEq in ER -Follow K with BID BMPs -Continue PO supplements Present on Admission?: Yes (6) EPHRAIM on CPAP: Patient admits to noncompliance with CPAP. She is in the process of obtaining a new provider and mask -CPAP qHS Present on Admission?: Yes (7) Obesity: BMI=40.3 -Encourage diet and exercise, lifestyle modifictation Present on Admission?: Yes (8) HTN (hypertension), benign: Blood pressure elevated at present, 149/101 -Continue Losartan and Carvedilol -Continue to monitor Present on Admission?: Yes (9) GERD (gastroesophageal reflux disease): Chronic. Well controlled. -Continue Ranitidine and Protonix (10) Anxiety and depression: Chronic, well controlled -Continue Sertraline -Continue Alprazolam F/E/N - Diuresis as above with Lasix 40mg IV BID, check BMP BID and replete electrolytes as needed, CC/Low Na diet as tolerated with fluid restriction Ppx - Lovenox, continue home GERD medications Code - Full Dispo - Admit to medical floor History of Present Illness Chief Complaint: SOB Primary Care Provider: DO Raven Anderson Lauri is a 63yo C female with history of severe persistent asthma, eosinophilic type, GERD, EPHRAIM on CPAP presenting with SOB. She was admitted in July with similar symptoms. At that time her SOB was thought to be secondary to acute exacerbation of CHF as well as her underlying asthma. She was diuresed and treated with steroids and nebs with improvement. She was discharged home in stable condition. States that she never quite returned to baseline after that hospital stay. Her most recent symptoms began two days ago with fevers, chills, body aches, extreme fatigue and shortness of breath. Patient reports becoming dyspneic with minimal exertion. The shortness of breath progressed through yesterday and worsened through the night. She was using her nebulizer machine q 6 hours yesterday. Last night she gave herself back to back treatments with minimal improvement in symptoms. She increased her home O2 from 2L to 3L which also provided some relief. Patient additionally complains of orthopnea requiring her to sleep upright in a chair last night, edema of her hands and legs and weight gain (reported 10# since July). She has had a dry cough since today and tightness in her chest. She was seen by her PCP today and was administered a neb treatment and sent to the ER . Upon arrival to the ER she was mildly hypoxic, 86% on room air. She was administered an hour long neb treatment with some improvement in her SOB. Patient was diagnosed with asthma in 2013. She is overall quite concerned about her quality of life. States that she was active and independent prior to her diagnosis of asthma. Since her diagnosis she has been having a difficult time with activity and exertion. She has a large O2 tank which is difficult to take to work. Patient follows with Dr. Canada, last seen on 03 October 2018. She also follows with Dr. Santana from [facility]. She has been receiving Fasenra (benralizumab) injections, recently received her 4th injection. States she notes minimal improvement in her symptoms with the injections but is overall disappointed with the results. She has EPHRAIM and wears CPAP at night although states she is not as compliant as she should be. She complains of nasal congestion from the CPAP. Patient is to have an overnight pulse oximetry study performed outpatient as well as repeat PFTs. ER Course: Albuterol 12mL, Lasix 40mg IV, Levaquin 750mg, Magnesium sulfate 1gm, Solumedrol 125mg IV, KCL 10mEq, Allergies Allergy/AdvReac Type Severity Reaction Status Date / Time formoterol Allergy Severe tongue Verified 10/16/18 14:43 swells mometasone furoate Allergy Severe tongue Verified 10/16/18 14:43 swells ketorolac Allergy Intermediate ITCHING Verified 10/16/18 14:43 adhesive tape Allergy Redness of Verified 10/16/18 14:43 Skin Home Medications Home Medications Medication Instructions Recorded Confirmed Type alprazolam 0.25 mg PO Q12H PRN 04/05/18 10/16/18 History budesonide 2 ml INHALATION BID PRN 04/05/18 10/16/18 History carvedilol 3.125 mg PO BID 04/05/18 10/16/18 History cholecalciferol (vitamin D3) 2,000 units PO DAILY 04/05/18 10/16/18 History [Vitamin D3] furosemide 40 mg PO BID 04/05/18 10/16/18 History ipratropium bromide 1 vial INHALATION QID PRN 04/05/18 10/16/18 History levalbuterol HCl 1.25 mg INHALATION Q6H PRN 04/05/18 10/16/18 History losartan 25 mg PO DAILY 04/05/18 10/16/18 History pantoprazole 40 mg PO DAILY 04/05/18 10/16/18 History potassium chloride 40 meq PO BID 04/05/18 10/16/18 History ranitidine HCl 300 mg PO HS 04/05/18 10/16/18 History sertraline 50 mg PO DAILY 04/05/18 10/16/18 History albuterol sulfate [ProAir HFA] 2 puff INHALATION Q4H PRN 06/13/18 10/16/18 History azelastine 2 spray INTRANASAL DAILY 06/13/18 10/16/18 History benralizumab 30 mg SUBCUT DIRECTED 08/01/18 10/16/18 History metformin 500 mg PO BIDM #60 tab 08/07/18 10/16/18 Rx Past Med/Surg History Medical History Asthma (Chronic) CHF (congestive heart failure) (Chronic) GERD (gastroesophageal reflux disease) (Chronic) Hypokalemia (Chronic) No significant family history Surgical History S/P cholecystectomy S/P hysterectomy S/P right knee surgery S/P sinus surgery Social History Preferred Language: Italian Communication Ability: Effective 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 Beliefs That Will Affect Care: None Current Living Situation: Spouse Other Information That Helps Us Care for You: No Feels Safe at Home: Yes Safety Concerns: Feels Safe At This Time Smoking Status: Never smoker Do You Dip or Chew Tobacco: No Second Hand Exposure: No Tobacco Cessation Education Requested by Patient: No Hx Alcohol Use: No Hx Substance Use: No Review of Systems Review of Systems: All systems reviewed & are unremarkable except as noted in HPI & below +Fever - last 100.4 last night +Chills +Sore throat +Dry cough +Wheezing Physical Exam Physical Exam: General: patient sitting upright, mildly short of breath with conversational dyspnea, non-toxic in appearance, AA&O x 4 Skin: warm, dry, intact, no rashes or lesions HEENT: NC/AT, PERRL, EOMI, anicteric sclera, conjunctiva without injection, external ear normal to inspection and nontender, nares patent, moist mucus membranes, dentition intact, no oropharyngeal lesions, neck supple, trachea midline, no LAD, no thyromegaly, no JVD Heart: +S1/S2, regular, no m/r/g Lungs: diminished breath sounds, equal bilaterally, no rales/rhonchi/wheezes Abd: +BS, soft, NT/ND, no masses/organomegaly/ascites Ext: warm, 2+ pulses in UE/LE bilaterally, no clubbing/cyanosis, 1+ pitting edema of bilateral LEs Neuro: nonfocal, patient AA&O x 4, speech intact, no facial droop, moving all extremities on command with equal strength 5/5 Results & Data Vital Signs (Past 12 Hours) Vital Signs Temp Pulse Pulse Resp BP BP Pulse Ox 10/16/18 15:07 97 H 16 149/101 H 90 10/16/18 14:03 86 20 96 10/16/18 13:08 37.4 C 98 H 24 167/96 H 91 10/16/18 13:07 86 L Laboratory Results Lab Results 10/16/18 10/16/18 10/16/18 Range/Units 13:32 13:39 13:39 WBC 7.05 (4.8-10.8) K/uL RBC 4.44 (4.2-5.4) M/uL Hgb 12.0 (12.0-16.0) g/dL Hct 36.4 L (37-47) % MCV 82.0 (80-100) fL MCH 27.0 (25-34) pg MCHC 33.0 (32-36) g/dL RDW Std Deviation 46.7 H (36.4-46.3) fL RDW Coeff of [place] 15.5 H (11.5-14.5) % Plt Count 220 (130-400) K/uL MPV 10.2 (7.4-10.4) fL Immature Gran % (Auto) 0.3 % Neut % (Auto) 74.7 % Lymph % (Auto) 15.3 % [place] % (Auto) 9.6 % Eos % (Auto) 0.0 % Baso % (Auto) 0.1 % Immature Gran # (Auto) 0.02 (0.00-0.02) K/uL Neut # (Auto) 5.26 (1.4-6.5) K/uL Lymph # (Auto) 1.08 L (1.2-3.4) K/uL [place] # (Auto) 0.68 H (0.11-0.59) K/uL Eos # (Auto) 0.00 (0-0.5) K/uL Baso # (Auto) 0.01 (0-0.2) K/uL Sodium 142 (136-145) mmol/L Potassium 3.1 L (3.5-5.1) mmol/L Chloride 106 (98-107) mmol/L Carbon Dioxide 27 (21-32) mmol/L Anion Gap 9.0 (3-11) BUN 8 (7-18) mg/dl Creatinine 0.70 (0.6-1.2) mg/dl Est Cr Clr Drug Dosing 111.4 ml/min Est GFR ( Amer) 108.4 Est GFR (Non-Af Amer) 93.5 BUN/Creatinine Ratio 10.9 (10-20) Glucose 106 H (70-99) mg/dl Calcium 8.9 (8.5-10.1) mg/dl Total Bilirubin 0.9 (0.2-1) mg/dl AST 16 (15-37) U/L ALT 23 (12-78) U/L Alkaline Phosphatase 105 (45-117) U/L Total Creatine Kinase 41 (26-192) U/L CK-MB (CK-2) < 1.0 (0.5-3.6) ng/ml CK/CKMB % Calc TNP Troponin I < 0.015 (0-0.045) ng/ml NT-Pro-B Natriuret Pep 276 (0-900) pg/ml Total Protein 6.6 (6.4-8.2) gm/dl Albumin 3.2 L (3.4-5.0) gm/dl Globulin 3.4 (2.5-4.0) gm/dl Albumin/Globulin Ratio 0.9 (0.9-2) Lipase 80 (73-393) U/L Influenza Type A (PCR) Neg for Influ A (Neg) Influenza Type B (PCR) Neg for Influ B (Neg) Diagnostic Findings XR chest 1V portable CLINICAL HISTORY: Chest Pain dyspnea COMPARISON STUDY: 08/04/2018 FINDINGS: Mild stable cardia megaly. Slight increase in bronchovascular prominence compared to the prior study. Slight increase in basilar interstitial prominence. IMPRESSION: Findings of early congestive failure. The above report was generated using voice recognition software. It may contain grammatical, syntax or spelling errors. Electronically signed by: Renard Godinez M.D. 10/16/2018 1:46 PM Dictated: 10/16/18 1346 Transcribed: 10/16/18 1346 ECG Additional Comments: EKG shows NSR at 90bpm, normal axis, IW=766, QRS=78, LDr=483, no acute ischemic changes Code Status & VTE Plan Code Status FULL VTE Prophylaxis Plan VTE Prophylaxis will be ordered: Yes Critical Care Time Critical Care Time: No (1) Asthma Asthma severity: severe Asthma persistence: persistent Asthma complication type: with acute exacerbation Qualified Code(s): J45.51 - Severe persistent asthma with (acute) exacerbation (2) GERD (gastroesophageal reflux disease) Esophagitis presence: esophagitis presence not specified Qualified Code(s): K21.9 - Gastro-esophageal reflux disease without esophagitis (3) Diabetes Diabetes mellitus type: type 2 Diabetes mellitus detention insulin use: without detention use Diabetes mellitus complication status: without complication Qualified Code(s): E11.9 - Type 2 diabetes mellitus without complications
[2018-10-16] MEDS ORDERED: ACETAMINOPHEN 325 MG TAB PO PRN (18:00)
[2018-10-16] MEDS ORDERED: ALPRAZolam 0.25 MG TABLET PO PRN (18:00)
[2018-10-16] MEDS ORDERED: GLUCOSE 10 TABS/TUBE PO PRN (18:00)
[2018-10-16] MEDS ORDERED: GLUCAGON FOR INJ 1 MG VIAL SQ PRN (18:00)
[2018-10-16] MEDS ORDERED: ALBUTEROL 0.083% NEBU SOLN 3 ML VIAL NEB PRN (18:00)
[2018-10-16] MEDS ORDERED: CARBOHYDRATES FOR HYPOGLYCEMIA PO PRN (18:00)
[2018-10-16] MEDS ORDERED: DEXTROSE 50% 50 ML SYRINGE IV PRN (18:00)
[2018-10-16] MEDS ORDERED: GLUCOSE 40% GEL 15 GM TUBE PO PRN (18:00)
[2018-10-16] MEDS ORDERED: SODIUM CHLORIDE 0.65% NA SOLN 45 ML (OCEAN) PRN (18:00)
[2018-10-16] MEDS ORDERED: POTASSIUM CHLORIDE 10 MEQ TABCR PO ONE (18:30)
[2018-10-16 18:56] LABS: BUN Creatinine Ratio 10.7 (10-20); Calcium 8.6 mg/dl (8.5-10.1); Creatinine Clr Calc Pharmacy 96.3 ml/min; Est GFR (African American) 90.9; Est GFR (Non-African American) 78.4; Magnesium 1.9 mg/dl (1.8-2.4); Phosphorus 2.5 mg/dl (2.5-4.9)
[2018-10-16 19:34] LABS: INR 1.1 (0.9-1.1); Partial Thromboplastin Time 27.1 Seconds (21.0-31.0)
[2018-10-16] MEDS: ALBUT/IPRATROP 3MG/0.5MG NEB 3 ML VIAL NEB SCH ×2 (19:40→23:44)
[2018-10-16] MEDS: BUDESONIDE 0.5 MG/2 ML VIAL (PULMICORT) INH SCH (19:40)
[2018-10-16] MEDS: MONTELUKAST SODIUM 10 MG TABLET PO SCH (20:55)
[2018-10-16] MEDS: CARVEDILOL 3.125 MG TAB PO SCH (20:55)
[2018-10-16] MEDS: POTASSIUM CHLORIDE 20 MEQ TABCR PO SCH (20:55)
[2018-10-16] MEDS: FUROSEMIDE 40 MG in SYRINGE 0 ML IV SCH ×2 (20:56→22:05)
[2018-10-16] MEDS: methylPREDNISolone 40 MG in SYRINGE 0 ML IV SCH (20:56)
[2018-10-16] MEDS: INSULIN ASPART 100 UNITS/ML 3 ML PEN SC SCH (20:57)
[2018-10-16] MEDS: DOXYCYCLINE HYCLATE 100 MG in DEXTROSE 5% 100 ML IV SCH (21:03)
[2018-10-16] MEDS: ENOXAPARIN INJ 40 MG/0.4 ML SYR SQ SCH (22:36)
[2018-10-17] MEDS: ALBUT/IPRATROP 3MG/0.5MG NEB 3 ML VIAL NEB SCH ×6 (04:12→23:12)
[2018-10-17 07:04] LABS: BUN Creatinine Ratio 19.8 (10-20); Calcium 8.8 mg/dl (8.5-10.1); Creatinine Clr Calc Pharmacy 123.8 ml/min; Est GFR (African American) 112.2; Est GFR (Non-African American) 96.8; Potassium 3.8 mmol/L (3.5-5.1)
[2018-10-17] MEDS: BUDESONIDE 0.5 MG/2 ML VIAL (PULMICORT) INH SCH ×2 (07:17→18:58)
[2018-10-17] MEDS: FUROSEMIDE 40 MG in SYRINGE 0 ML IV SCH ×2 (08:13→17:17)
[2018-10-17] MEDS: SERTRALINE HCL 50 MG TABLET PO SCH (08:14)
[2018-10-17] MEDS: LOSARTAN POTASSIUM 25 MG TAB PO SCH (08:14)
[2018-10-17] MEDS: POTASSIUM CHLORIDE 20 MEQ TABCR PO SCH ×2 (08:14→20:50)
[2018-10-17] MEDS: methylPREDNISolone 40 MG in SYRINGE 0 ML IV SCH ×3 (08:14→20:49)
[2018-10-17] MEDS: CARVEDILOL 3.125 MG TAB PO SCH ×2 (08:14→20:50)
[2018-10-17] MEDS: PANTOprazole 40 MG TAB PO SCH (08:14)
[2018-10-17] MEDS: INSULIN ASPART 100 UNITS/ML 3 ML PEN SC SCH ×4 (08:17→20:52)
[2018-10-17] MEDS: DOXYCYCLINE HYCLATE 100 MG in DEXTROSE 5% 100 ML IV SCH ×2 (08:20→21:50)
[2018-10-17] MEDS ORDERED: NON-FORMULARY MEDICATION (Azelastine 2 SPRAYS) INTNAS SCH (09:00)
[2018-10-17 19:40] LABS: BUN Creatinine Ratio 17.8 (10-20); Calcium 9.4 mg/dl (8.5-10.1); Creatinine Clr Calc Pharmacy 69.9 ml/min; Est GFR (African American) 62.1; Est GFR (Non-African American) 53.6; Potassium 3.7 mmol/L (3.5-5.1)
--- NOTE | 2018-10-17 20:07 | Emergency Department Note ---
Entered by Kateryna Frausto acting as a scribe for Renzo Caceres MD History of Present Illness General Chief complaint: Shortness of Breath/Dyspnea Stated complaint: CANT BREATH Time Seen by Provider: 10/16/18 13:15 Source: patient Limitations: no limitations History of Present Illness Provider complaint: shortness of breath Onset (ago): hour(s) Location: chest Pain Consistency: + constant Quality: + constant Exacerbated By: + movement Treatments prior to arrival: other (+breathing treatment ) The patient is a 63 year old female who presents to the Emergency Room with complaints of shortness of breath. The patient states that she was at Dr. Lane's office prior to arrival and was given a breathing treatment. The patient states that she was at 89% on 3L of oxygen so Dr. Lane sent her to the ED. The patient states that her shortness of breath is constant and states that movement exacerbates her shortness of breath. The patient states that she is on oxygen as needed. The patient states that she has been off of steroids for a couple of weeks for her asthma. The patient states that she has a history of asthma and states that she is on Lasix. Home Medications Home Medications Medication Instructions Recorded Confirmed Type alprazolam 0.25 mg PO Q12H PRN 04/05/18 10/16/18 History budesonide 2 ml INHALATION BID PRN 04/05/18 10/16/18 History carvedilol 3.125 mg PO BID 04/05/18 10/16/18 History cholecalciferol (vitamin D3) 2,000 units PO DAILY 04/05/18 10/16/18 History [Vitamin D3] furosemide 40 mg PO BID 04/05/18 10/16/18 History ipratropium bromide 1 vial INHALATION QID PRN 04/05/18 10/16/18 History levalbuterol HCl 1.25 mg INHALATION Q6H PRN 04/05/18 10/16/18 History losartan 25 mg PO DAILY 04/05/18 10/16/18 History pantoprazole 40 mg PO DAILY 04/05/18 10/16/18 History potassium chloride 40 meq PO BID 04/05/18 10/16/18 History ranitidine HCl 300 mg PO HS 04/05/18 10/16/18 History sertraline 50 mg PO DAILY 04/05/18 10/16/18 History albuterol sulfate [ProAir HFA] 2 puff INHALATION Q4H PRN 06/13/18 10/16/18 History azelastine 2 spray INTRANASAL DAILY 06/13/18 10/16/18 History benralizumab 30 mg SUBCUT DIRECTED 08/01/18 10/16/18 History metformin 500 mg PO BIDM #60 tab 08/07/18 10/16/18 Rx Allergies Allergy/AdvReac Type Severity Reaction Status Date / Time formoterol Allergy Severe tongue Verified 10/16/18 14:43 swells mometasone furoate Allergy Severe tongue Verified 10/16/18 14:43 swells ketorolac Allergy Intermediate ITCHING Verified 10/16/18 14:43 adhesive tape Allergy Redness of Verified 10/16/18 14:43 Skin Past Med/Surg History Medical History Asthma (Chronic) CHF (congestive heart failure) (Chronic) GERD (gastroesophageal reflux disease) (Chronic) Hypokalemia (Chronic) No significant family history Surgical History S/P cholecystectomy S/P hysterectomy S/P right knee surgery S/P sinus surgery Social History Preferred Language: Citizen Of [place] Communication Ability: Effective Sustainability Officer Required: No Beliefs That Will Affect Care: None Current Living Situation: Spouse Other Information That Helps Us Care for You: No Feels Safe at Home: Yes Safety Concerns: Feels Safe At This Time Smoking Status: Never smoker Do You Dip or Chew Tobacco: No Second Hand Exposure: No Tobacco Cessation Education Requested by Patient: No Hx Alcohol Use: No Hx Substance Use: No Review of Systems See HPI for pertinent positives & negatives. and A total of 10 systems reviewed and were otherwise negative See HPI for pertinent positives & negatives. A total of 10 systems reviewed and were otherwise negative. Physical Exam Vital Signs Vital Signs - 24 hr 10/16/18 22:45 10/17/18 00:25 10/17/18 07:18 Temperature 36.8 C Temperature Source Oral Pulse Rate [Finger] 76 96 H Respiratory Rate 20 18 Respiratory Effort / Characteristics Non-Labored Spontaneous Non-Labored Spontaneous Respiratory Depth Normal Respiratory Pattern Regular Blood Pressure [Left Arm] 122/70 Blood Pressure [Right Arm] Blood Pressure Mean [Left Arm] 87 Blood Pressure Mean [Right Arm] Blood Pressure Position [Left Arm] Lying Blood Pressure Position [Right Arm] Pulse Oximetry 94 96 Oxygen Delivery Method Nasal Cannula Nasal Cannula Room Air Nasal Cannula Oxygen Flow Rate 3 3 2 10/17/18 07:21 10/17/18 11:11 10/17/18 15:00 Temperature 36.7 C Temperature Source Oral Pulse Rate [Finger] 75 89 71 Respiratory Rate 18 18 16 Respiratory Effort / Characteristics Non-Labored Spontaneous Non-Labored Respiratory Depth Respiratory Pattern Blood Pressure [Left Arm] Blood Pressure [Right Arm] 134/87 Blood Pressure Mean [Left Arm] Blood Pressure Mean [Right Arm] 102 Blood Pressure Position [Left Arm] Blood Pressure Position [Right Arm] Lying Pulse Oximetry 93 96 94 Oxygen Delivery Method Nasal Cannula Nasal Cannula Nasal Cannula Oxygen Flow Rate 3 2 2 10/17/18 15:09 10/17/18 15:25 10/17/18 18:58 Temperature 36.7 C 36.7 C Temperature Source Oral Oral Pulse Rate [Finger] 81 81 71 Respiratory Rate 20 20 16 Respiratory Effort / Characteristics Non-Labored Respiratory Depth Respiratory Pattern Blood Pressure [Left Arm] Blood Pressure [Right Arm] 129/79 129/79 Blood Pressure Mean [Left Arm] Blood Pressure Mean [Right Arm] 95 95 Blood Pressure Position [Left Arm] Blood Pressure Position [Right Arm] Lying Lying Pulse Oximetry 90 90 94 Oxygen Delivery Method Nasal Cannula Nasal Cannula Nasal Cannula Oxygen Flow Rate 2 2 2 GENERAL: Awake, alert, well-appearing, in no acute distress HENT: Normocephalic, atraumatic. Oropharynx unremarkable. EYES: Normal conjunctiva. Sclera non-icteric. NECK: Supple. No nuchal rigidity. FROM. No JVD. RESPIRATORY: Distant lung sounds. CARDIAC: Regular rate, normal rhythm. Extremities warm and well perfused. Pulses equal. ABDOMEN: Soft, non-distended. No tenderness to palpation. No rebound or guarding. No masses. RECTAL: Deferred. MUSCULOSKELETAL: Chest examination reveals no tenderness. The back is symmetrical on inspection without obvious abnormality. There is no CVA tenderness to palpation. No joint edema. LOWER EXTREMITIES: Calves are equal size bilaterally and non-tender. No edema. No discoloration. NEURO: Normal sensorium. No sensory or motor deficits noted. SKIN: No rash or jaundice noted. Course 1319: The patient was evaluated in room B9, and a complete history and physical examination were performed. 1518: I discussed the patients's case with Nelly Cantrell [facility] Hospitalist who will evaluate the patient for further hospitalization. Consultations Consultation #1: Nelly Cantrell [facility] Hospitalist Time: 15:18 Administered Medications Albuterol (Duoneb) 3 ml NEB Q4R GUILLERMO Stop: 11/15/18 19:59 Last Admin: 10/17/18 18:58 Dose: 3 ml Documented by: [id number] Admin: 10/17/18 15:00 Dose: 3 ml Documented by: [id number] Admin: 10/17/18 11:11 Dose: 3 ml Documented by: [id number] Admin: 10/17/18 07:17 Dose: 3 ml Documented by: [id number] Admin: 10/17/18 04:12 Dose: Not Given Documented by: [id number] Admin: 10/16/18 23:44 Dose: Not Given Documented by: [id number] Admin: 10/16/18 19:40 Dose: 3 ml Documented by: [id number] Alprazolam (Xanax) 0.25 mg PO Q12H PRN PRN Reason: Anxiety Stop: 11/15/18 17:59 Last Admin: 10/17/18 08:20 Dose: 0.25 mg Documented by: [id number] Budesonide (Pulmicort Respules) 1 mg INH BID GUILLERMO Stop: 11/15/18 20:59 Last Admin: 10/17/18 18:58 Dose: 0.5 mg Documented by: [id number] Admin: 10/17/18 07:17 Dose: 1 mg Documented by: [id number] Admin: 10/16/18 19:40 Dose: 1 mg Documented by: [id number] Carvedilol (Coreg) 3.125 mg PO BID GUILLERMO Stop: 11/15/18 20:59 Last Admin: 10/17/18 08:14 Dose: 3.125 mg Documented by: [id number] Admin: 10/16/18 20:55 Dose: 3.125 mg Documented by: [id number] Enoxaparin Sodium (Lovenox) 40 mg SQ Q24H GUILLERMO Stop: 11/15/18 20:59 Last Admin: 10/16/18 22:36 Dose: 40 mg Documented by: [id number] Doxycycline Hyclate 100 mg/ (Dextrose) 110 mls @ 50 mls/hr IV BID GUILLERMO Stop: 10/23/18 20:59 Last Infusion: 10/17/18 09:55 Dose: 0 mls/hr Documented by: [id number] Admin: 10/17/18 08:20 Dose: 100 mls/hr Documented by: [id number] Infusion: 10/17/18 00:10 Dose: 0 mls/hr Documented by: [id number] Admin: 10/16/18 21:03 Dose: 50 mls/hr Documented by: [id number] Methylprednisolone 40 mg/ (Syringe) 0.64 mls @ 1.5 mls/min IV TID GUILLERMO Stop: 11/15/18 20:59 Last Admin: 10/17/18 14:28 Dose: 1.5 mls/min Documented by: [id number] Admin: 10/17/18 08:14 Dose: 1.5 mls/min Documented by: [id number] Admin: 10/16/18 20:56 Dose: 1.5 mls/min Documented by: [id number] Furosemide 40 mg/ Syringe 4 mls @ 4 mls/min IV BID17 GUILLERMO Stop: 11/16/18 16:59 Last Admin: 10/17/18 17:17 Dose: 4 mls/min Documented by: [id number] Insulin Aspart (Novolog Flexpen) 0 units SC ACHS GUILLERMO Stop: 11/15/18 20:59 Last Admin: 10/17/18 17:48 Dose: 6 units Documented by: [id number] Cosigned by: [id number] Admin: 10/17/18 12:27 Dose: 4 units Documented by: [id number] Cosigned by: [id number] Admin: 10/17/18 08:17 Dose: 3 units Documented by: [id number] Cosigned by: [id number] Admin: 10/16/18 20:57 Dose: 3 units Documented by: [id number] Cosigned by: [id number] Losartan Potassium (Cozaar) 25 mg PO DAILY GUILLERMO Stop: 11/16/18 08:59 Last Admin: 10/17/18 08:14 Dose: 25 mg Documented by: [id number] Miscellaneous (Order Awaiting Action) 1 ea N/A QS GUILLERMO Stop: 11/16/18 00:00 Last Admin: 10/17/18 17:17 Dose: Not Given Documented by: [id number] Admin: 10/17/18 08:13 Dose: Not Given Documented by: [id number] Admin: 10/17/18 00:10 Dose: Not Given Documented by: [id number] Montelukast Sodium (Singulair) 10 mg PO HS GUILLERMO Stop: 11/15/18 20:59 Last Admin: 10/16/18 20:55 Dose: 10 mg Documented by: [id number] Pantoprazole Sodium (Protonix) 40 mg PO DAILY GUILLERMO Stop: 11/16/18 08:59 Last Admin: 10/17/18 08:14 Dose: 40 mg Documented by: [id number] Potassium Chloride (Klor-Con M20) 40 meq PO BID GUILLERMO Stop: 11/15/18 20:59 Last Admin: 10/17/18 08:14 Dose: 40 meq Documented by: [id number] Admin: 10/16/18 20:55 Dose: 40 meq Documented by: [id number] Ranitidine HCl (Zantac) 300 mg PO HS GUILLERMO Stop: 11/15/18 20:59 Last Admin: 10/16/18 20:55 Dose: 300 mg Documented by: [id number] Sertraline HCl (Zoloft) 50 mg PO DAILY GUILLERMO Stop: 11/16/18 08:59 Last Admin: 10/17/18 08:14 Dose: 50 mg Documented by: [id number] Discontinued Medications Albuterol (Duoneb) 12 ml NEB ONE ONE Stop: 10/16/18 13:23 Last Admin: 10/16/18 14:03 Dose: 12 ml Documented by: [id number] Budesonide/Formoterol Fumarate (Symbicort 160mcg/4.5mcg) 2 puffs INH NOW STA Stop: 10/16/18 13:23 Last Admin: 10/16/18 15:13 Dose: 2 puffs Documented by: [id number] Furosemide (Lasix) 40 mg IV NOW STA Stop: 10/16/18 13:54 Last Admin: 10/16/18 14:22 Dose: 40 mg Documented by: [id number] Magnesium Sulfate/Dextrose (Magnesium Sulfate / D5w) 1 gm in 100 mls @ 100 mls/hr IV ONE ONE Stop: 10/16/18 14:21 Last Infusion: 10/16/18 15:02 Dose: 0 mls/hr Documented by: [id number] Admin: 10/16/18 13:53 Dose: 100 mls/hr Documented by: [id number] Potassium Chloride (K Samson / Wtr) 10 meq in 100 mls @ 100 mls/hr IV Q1H GUILLERMO Stop: 10/16/18 16:44 Last Infusion: 10/16/18 18:01 Dose: 0 mls/hr Documented by: [id number] Admin: 10/16/18 16:39 Dose: 80 mls/hr Documented by: [id number] Infusion: 10/16/18 16:35 Dose: 0 mls/hr Documented by: [id number] Admin: 10/16/18 15:34 Dose: 100 mls/hr Documented by: [id number] Levofloxacin/Dextrose (Levaquin/D5w) 750 mg in 150 mls @ 100 mls/hr IV NOW STA Stop: 10/16/18 16:59 Last Infusion: 10/16/18 18:55 Dose: 0 mls/hr Documented by: [id number] Admin: 10/16/18 16:42 Dose: 100 mls/hr Documented by: [id number] Furosemide 40 mg/ Syringe 4 mls @ 4 mls/min IV BID GUILLERMO Stop: 11/15/18 20:59 Last Admin: 10/17/18 08:13 Dose: 4 mls/min Documented by: [id number] Admin: 10/16/18 22:05 Dose: Not Given Documented by: [id number] Methylprednisolone (Solumedrol) 125 mg IV NOW STA Stop: 10/16/18 13:23 Last Admin: 10/16/18 13:53 Dose: 125 mg Documented by: [id number] Potassium Chloride (Klor-Con M10) 40 meq PO NOW STA Stop: 10/16/18 14:35 Last Admin: 10/16/18 15:13 Dose: 40 meq Documented by: [id number] Potassium Chloride (Klor-Con M10) 40 meq PO 1830 ONE Stop: 10/16/18 18:31 Last Admin: 10/16/18 18:56 Dose: 40 meq Documented by: [id number] Medical Decision Making Differential Diagnosis Differential diagnosis: Etiologies such as infections, reactive airway disease, COPD, pneumonia, pleural effusion, pulmonary edema, ARDS, pneumothorax, CHF, cardiac ischemia, cardiac tamponade, dysrhythmia, anemia, pulmonary embolism, musculoskeletal, gastrointe stinal process, as well as others were entertained. Medical Records Attestation: I reviewed the patient's medical records. Home Medications Current Medication List: was personally reviewed by or Laboratory Data Attestation: I reviewed the patient's lab results. Result diagrams: 10/16/18 13:39 10/17/18 18:54 Lab Results 10/16/18 10/16/18 10/16/18 Range/Units 13:32 13:39 13:39 WBC 7.05 (4.8-10.8) K/uL RBC 4.44 (4.2-5.4) M/uL Hgb 12.0 (12.0-16.0) g/dL Hct 36.4 L (37-47) % MCV 82.0 (80-100) fL MCH 27.0 (25-34) pg MCHC 33.0 (32-36) g/dL RDW Std Deviation 46.7 H (36.4-46.3) fL RDW Coeff of [place] 15.5 H (11.5-14.5) % Plt Count 220 (130-400) K/uL MPV 10.2 (7.4-10.4) fL Immature Gran % (Auto) 0.3 % Neut % (Auto) 74.7 % Lymph % (Auto) 15.3 % [place] % (Auto) 9.6 % Eos % (Auto) 0.0 % Baso % (Auto) 0.1 % Immature Gran # (Auto) 0.02 (0.00-0.02) K/uL Neut # (Auto) 5.26 (1.4-6.5) K/uL Lymph # (Auto) 1.08 L (1.2-3.4) K/uL [place] # (Auto) 0.68 H (0.11-0.59) K/uL Eos # (Auto) 0.00 (0-0.5) K/uL Baso # (Auto) 0.01 (0-0.2) K/uL PT (9.0-12.0) Seconds INR (0.9-1.1) APTT (21.0-31.0) Seconds PTT Ratio Sodium 142 (136-145) mmol/L Potassium 3.1 L (3.5-5.1) mmol/L Chloride 106 (98-107) mmol/L Carbon Dioxide 27 (21-32) mmol/L Anion Gap 9.0 (3-11) BUN 8 (7-18) mg/dl Creatinine 0.70 (0.6-1.2) mg/dl Est Cr Clr Drug Dosing 111.4 ml/min Est GFR ( Amer) 108.4 Est GFR (Non-Af Amer) 93.5 BUN/Creatinine Ratio 10.9 (10-20) Glucose 106 H (70-99) mg/dl POC Glucose (70-99) Calcium 8.9 (8.5-10.1) mg/dl Phosphorus (2.5-4.9) mg/dl Magnesium (1.8-2.4) mg/dl Total Bilirubin 0.9 (0.2-1) mg/dl AST 16 (15-37) U/L ALT 23 (12-78) U/L Alkaline Phosphatase 105 (45-117) U/L Total Creatine Kinase 41 (26-192) U/L CK-MB (CK-2) < 1.0 (0.5-3.6) ng/ml CK/CKMB % Calc TNP Troponin I < 0.015 (0-0.045) ng/ml NT-Pro-B Natriuret Pep 276 (0-900) pg/ml Total Protein 6.6 (6.4-8.2) gm/dl Albumin 3.2 L (3.4-5.0) gm/dl Globulin 3.4 (2.5-4.0) gm/dl Albumin/Globulin Ratio 0.9 (0.9-2) Lipase 80 (73-393) U/L Influenza Type A (PCR) Neg for Influ A (Neg) Influenza Type B (PCR) Neg for Influ B (Neg) 10/16/18 10/16/18 10/16/18 Range/Units 18:31 19:08 19:58 WBC (4.8-10.8) K/uL RBC (4.2-5.4) M/uL Hgb (12.0-16.0) g/dL Hct (37-47) % MCV (80-100) fL MCH (25-34) pg MCHC (32-36) g/dL RDW Std Deviation (36.4-46.3) fL RDW Coeff of [place] (11.5-14.5) % Plt Count (130-400) K/uL MPV (7.4-10.4) fL Immature Gran % (Auto) % Neut % (Auto) % Lymph % (Auto) % [place] % (Auto) % Eos % (Auto) % Baso % (Auto) % Immature Gran # (Auto) (0.00-0.02) K/uL Neut # (Auto) (1.4-6.5) K/uL Lymph # (Auto) (1.2-3.4) K/uL [place] # (Auto) (0.11-0.59) K/uL Eos # (Auto) (0-0.5) K/uL Baso # (Auto) (0-0.2) K/uL PT 11.0 (9.0-12.0) Seconds INR 1.1 (0.9-1.1) APTT 27.1 (21.0-31.0) Seconds PTT Ratio 1.0 Sodium 138 (136-145) mmol/L Potassium 3.0 L (3.5-5.1) mmol/L Chloride 106 (98-107) mmol/L Carbon Dioxide 26 (21-32) mmol/L Anion Gap 6.0 (3-11) BUN 9 (7-18) mg/dl Creatinine 0.81 (0.6-1.2) mg/dl Est Cr Clr Drug Dosing 96.3 ml/min Est GFR ( Amer) 90.9 Est GFR (Non-Af Amer) 78.4 BUN/Creatinine Ratio 10.7 (10-20) Glucose 177 H (70-99) mg/dl POC Glucose 192 H (70-99) Calcium 8.6 (8.5-10.1) mg/dl Phosphorus 2.5 (2.5-4.9) mg/dl Magnesium 1.9 (1.8-2.4) mg/dl Total Bilirubin (0.2-1) mg/dl AST (15-37) U/L ALT (12-78) U/L Alkaline Phosphatase (45-117) U/L Total Creatine Kinase (26-192) U/L CK-MB (CK-2) (0.5-3.6) ng/ml CK/CKMB % Calc Troponin I (0-0.045) ng/ml NT-Pro-B Natriuret Pep (0-900) pg/ml Total Protein (6.4-8.2) gm/dl Albumin (3.4-5.0) gm/dl Globulin (2.5-4.0) gm/dl Albumin/Globulin Ratio (0.9-2) Lipase (73-393) U/L Influenza Type A (PCR) (Neg) Influenza Type B (PCR) (Neg) 10/17/18 10/17/18 10/17/18 Range/Units 06:01 07:37 11:29 WBC (4.8-10.8) K/uL RBC (4.2-5.4) M/uL Hgb (12.0-16.0) g/dL Hct (37-47) % MCV (80-100) fL MCH (25-34) pg MCHC (32-36) g/dL RDW Std Deviation (36.4-46.3) fL RDW Coeff of [place] (11.5-14.5) % Plt Count (130-400) K/uL MPV (7.4-10.4) fL Immature Gran % (Auto) % Neut % (Auto) % Lymph % (Auto) % [place] % (Auto) % Eos % (Auto) % Baso % (Auto) % Immature Gran # (Auto) (0.00-0.02) K/uL Neut # (Auto) (1.4-6.5) K/uL Lymph # (Auto) (1.2-3.4) K/uL [place] # (Auto) (0.11-0.59) K/uL Eos # (Auto) (0-0.5) K/uL Baso # (Auto) (0-0.2) K/uL PT (9.0-12.0) Seconds INR (0.9-1.1) APTT (21.0-31.0) Seconds PTT Ratio Sodium 140 (136-145) mmol/L Potassium 3.8 D (3.5-5.1) mmol/L Chloride 109 H (98-107) mmol/L Carbon Dioxide 25 (21-32) mmol/L Anion Gap 6.0 (3-11) BUN 12 (7-18) mg/dl Creatinine 0.63 (0.6-1.2) mg/dl Est Cr Clr Drug Dosing 123.8 ml/min Est GFR ( Amer) 112.2 Est GFR (Non-Af Amer) 96.8 BUN/Creatinine Ratio 19.8 (10-20) Glucose 154 H (70-99) mg/dl POC Glucose 147 H 135 H (70-99) Calcium 8.8 (8.5-10.1) mg/dl Phosphorus (2.5-4.9) mg/dl Magnesium (1.8-2.4) mg/dl Total Bilirubin (0.2-1) mg/dl AST (15-37) U/L ALT (12-78) U/L Alkaline Phosphatase (45-117) U/L Total Creatine Kinase (26-192) U/L CK-MB (CK-2) (0.5-3.6) ng/ml CK/CKMB % Calc Troponin I (0-0.045) ng/ml NT-Pro-B Natriuret Pep (0-900) pg/ml Total Protein (6.4-8.2) gm/dl Albumin (3.4-5.0) gm/dl Globulin (2.5-4.0) gm/dl Albumin/Globulin Ratio (0.9-2) Lipase (73-393) U/L Influenza Type A (PCR) (Neg) Influenza Type B (PCR) (Neg) 10/17/18 10/17/18 Range/Units 16:51 18:54 WBC (4.8-10.8) K/uL RBC (4.2-5.4) M/uL Hgb (12.0-16.0) g/dL Hct (37-47) % MCV (80-100) fL MCH (25-34) pg MCHC (32-36) g/dL RDW Std Deviation (36.4-46.3) fL RDW Coeff of [place] (11.5-14.5) % Plt Count (130-400) K/uL MPV (7.4-10.4) fL Immature Gran % (Auto) % Neut % (Auto) % Lymph % (Auto) % [place] % (Auto) % Eos % (Auto) % Baso % (Auto) % Immature Gran # (Auto) (0.00-0.02) K/uL Neut # (Auto) (1.4-6.5) K/uL Lymph # (Auto) (1.2-3.4) K/uL [place] # (Auto) (0.11-0.59) K/uL Eos # (Auto) (0-0.5) K/uL Baso # (Auto) (0-0.2) K/uL PT (9.0-12.0) Seconds INR (0.9-1.1) APTT (21.0-31.0) Seconds PTT Ratio Sodium 143 (136-145) mmol/L Potassium 3.7 (3.5-5.1) mmol/L Chloride 110 H (98-107) mmol/L Carbon Dioxide 24 (21-32) mmol/L Anion Gap 9.0 (3-11) BUN 20 H D (7-18) mg/dl Creatinine 1.11 D (0.6-1.2) mg/dl Est Cr Clr Drug Dosing 69.9 ml/min Est GFR ( Amer) 62.1 Est GFR (Non-Af Amer) 53.6 BUN/Creatinine Ratio 17.8 (10-20) Glucose 189 H (70-99) mg/dl POC Glucose 175 H (70-99) Calcium 9.4 (8.5-10.1) mg/dl Phosphorus (2.5-4.9) mg/dl Magnesium (1.8-2.4) mg/dl Total Bilirubin (0.2-1) mg/dl AST (15-37) U/L ALT (12-78) U/L Alkaline Phosphatase (45-117) U/L Total Creatine Kinase (26-192) U/L CK-MB (CK-2) (0.5-3.6) ng/ml CK/CKMB % Calc Troponin I (0-0.045) ng/ml NT-Pro-B Natriuret Pep (0-900) pg/ml Total Protein (6.4-8.2) gm/dl Albumin (3.4-5.0) gm/dl Globulin (2.5-4.0) gm/dl Albumin/Globulin Ratio (0.9-2) Lipase (73-393) U/L Influenza Type A (PCR) (Neg) Influenza Type B (PCR) (Neg) Imaging Data Radiologist's Impression: Radiology results as stated below per my review and the radiologist's interpretation: XR chest 1V portable CLINICAL HISTORY: Chest Pain dyspnea COMPARISON STUDY: 08/04/2018 FINDINGS: Mild stable cardia megaly. Slight increase in bronchovascular prominence compared to the prior study. Slight increase in basilar interstitial prominence. IMPRESSION: Findings of early congestive failure. The above report was generated using voice recognition software. It may contain grammatical, syntax or spelling errors. Electronically signed by: Renard Godinez M.D. 10/16/2018 1:46 PM ECG Data Attestation: I personally reviewed and interpreted this ECG as follows: Indication: SOB/dyspnea Rate (beats per minute): 90 Rhythm: normal sinus Findings: + other (normal ECG); no ST depression and no ST elevation Blood Pressure Blood Pressure Findings: Elevated blood pressure Blood Pressure Disposition: further management by hospitalist MDM Narrative This is a 63-year-old female who presents emergency department complaining of shortness of breath. The patient is hypoxic. She is normally not on oxygen at home and is requiring 3 L here in the emergency department. She was given an hour-long breathing treatment and started on Solu-Medrol. Patient was also given Lasix. The patient remains hypoxic and is still requiring oxygen therefore I did discuss the case with the hospitalist service who agreed to admit the patient. Patient was in agreement with the treatment plan. Impression & Plan Hypoxia Discharge Plan Visit Data *Final* Discharge Date/Time: 10/16/18 17:05 Chief Complaint: Shortness of Breath/Dyspnea Stated Complaint: CANT BREATH ED Provider: Renzo Caceres Discharge Problem: Hypoxia Patient Disposition: Admitted As Inpatient Discharge Instructions Interventions: ED Discharge Assessment Last Done: 10/16/18 17:05 The scribe's documentation has been prepared under my direction and personally reviewed by me in its entirety. I confirm that the note above accurately reflects all work, treatment, procedures, and medical decision making performed by me.
--- NOTE | 2018-10-17 20:14 | Hospitalist Progress Note ---
Date of Service October 17, 2018 Assessment & Plan (1) Acute respiratory failure with hypoxia: Likely combination of eosinophilic asthma exacerbation and acute/chronic diastolic CHF. Improved today. Cont steroids, narrow-spectrum abx, and IV lasix. (2) Acute on chronic diastolic CHF (congestive heart failure): Improving. But still with mild JVD and crackles on exam today. Cont IV lasix BID. BUN and Cr stable today. BMP in am. Cont Low Na diet, fluid restriction of 1500mL/day. Cont BB and ARB. (3) Asthma: eosinophilic asthma exacerbation -- improved. No wean on steroids today - maybe tomorrow. Cont doxy BID. Cont nebs, add flutter valve and incentive spirometry. Tessalon 100mg TID at her request. She has been on Spiriva and Symbicort in the past without effect, Dulera caused severe itching, Breo Ellipta caused headaches. Budesonide nebs while here. Consider these at d/c as her controller agent. She will continue benralizumab injections outpatient per Allergy after discharge (sees Dr. Lockwood). (4) Diabetes: Hold Metformin while inpatient Supplemental sliding scale w/ novolog Low threshold for lantus Control thus far acceptable (5) Hypokalemia: resolved cont supplementation (6) EPHRAIM on CPAP: Patient admits to noncompliance with CPAP. She is in the process of obtaining a new provider and mask -CPAP qHS (7) Obesity: BMI about 40 (8) HTN (hypertension), benign: Continue Losartan and Carvedilol - adjust as needed (9) GERD (gastroesophageal reflux disease): Ranitidine and Protonix (10) Anxiety and depression: Continue Sertraline and xanax prn (11) DVT prophylaxis: lovenox daily progressing Subjective patient feeling better today. mild cough. minimal sputum. dyspnea and CASTRO improved. still w/ o2 requirement. had fever, chills, aches over last weekend --those symptoms are fully resolved. no sinus symptoms. Review of Systems Constitutional: + fatigue; no fever, no chills and no anorexia Ear, Nose, Mouth, Throat: no nasal congestion Respiratory: as per Subjective / HPI and + dyspnea on exertion; no hemoptysis Cardiovascular: no chest pain Gastrointestinal: no abdominal pain Physical Exam Constitutional: + obese; no acute distress and not ill appearing ENMT: external ear and nose normal, oropharynx normal Respiratory: Auscultation: + diminished lung sounds (bases), + crackles (especially left base) and + wheezes (especially left base) Cardiovascular: Rate/Rhythm: regular rate and regular rhythm Heart Sounds: normal S1 and normal S2; no murmur Vessels: + JVD, posterior tibial pulses present and dorsalis pedis pulses present Extremities: + pedal edema (trace b/l) Gastrointestinal (Abdomen): normal bowel sounds, soft, nontender, no hepatosplenomegaly Psychiatric: A+Ox3, euthymic affect Results & Data Vital Signs (Past 12 Hours) Vital Signs Temp Pulse Resp BP Pulse Ox 10/17/18 18:58 71 16 94 10/17/18 15:25 36.7 C 81 20 129/79 90 10/17/18 15:09 36.7 C 81 20 129/79 90 10/17/18 15:00 71 16 94 10/17/18 11:11 89 18 96 Laboratory Results Laboratory Results - last 24 hr 10/17/18 10/17/18 10/17/18 06:01 07:37 11:29 Sodium 140 Potassium 3.8 D Chloride 109 H Carbon Dioxide 25 Anion Gap 6.0 BUN 12 Creatinine 0.63 Est Cr Clr Drug Dosing 123.8 Est GFR ( Amer) 112.2 Est GFR (Non-Af Amer) 96.8 BUN/Creatinine Ratio 19.8 Glucose 154 H POC Glucose 147 H 135 H Calcium 8.8 10/17/18 10/17/18 16:51 18:54 Sodium 143 Potassium 3.7 Chloride 110 H Carbon Dioxide 24 Anion Gap 9.0 BUN 20 H D Creatinine 1.11 D Est Cr Clr Drug Dosing 69.9 Est GFR ( Amer) 62.1 Est GFR (Non-Af Amer) 53.6 BUN/Creatinine Ratio 17.8 Glucose 189 H POC Glucose 175 H Calcium 9.4 (1) Diabetes Diabetes mellitus complication status: without complication 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 use: without mcc use Diabetes mellitus type: type 2 Qualified Code(s): E11.9 - Type 2 diabetes mellitus without complications (2) GERD (gastroesophageal reflux disease) Esophagitis presence: esophagitis presence not specified Qualified Code(s): K21.9 - Gastro-esophageal reflux disease without esophagitis (3) Obesity Obesity type: unspecified obesity type Obesity classification: adult class 2 (BMI 35 - 39.9) Serious obesity comorbidity presence: with serious comorbidity Body mass index: BMI 39.0-39.9 Qualified Code(s): E66.01 - Morbid (severe) obesity due to excess calories; Z68.39 - Body mass index (BMI) 39.0-39.9, adult (4) Asthma Asthma complication type: with acute exacerbation Asthma persistence: persistent Asthma severity: severe Qualified Code(s): J45.51 - Severe persistent asthma with (acute) exacerbation
[2018-10-17] MEDS: ENOXAPARIN INJ 40 MG/0.4 ML SYR SQ SCH (20:50)
[2018-10-17] MEDS: BENZONATATE 100 MG CAPSULE PO SCH (21:23)
[2018-10-17] MEDS: MONTELUKAST SODIUM 10 MG TABLET PO SCH (21:51)
[2018-10-18] MEDS: ALBUT/IPRATROP 3MG/0.5MG NEB 3 ML VIAL NEB SCH ×6 (03:30→23:31)
[2018-10-18] MEDS: BUDESONIDE 0.5 MG/2 ML VIAL (PULMICORT) INH SCH ×2 (07:06→19:02)
[2018-10-18 07:26] LABS: BUN Creatinine Ratio 28.1 (10-20); Calcium 9.1 mg/dl (8.5-10.1); Est GFR (African American) 85.7; Potassium 4.2 mmol/L (3.5-5.1)
[2018-10-18] MEDS: BENZONATATE 100 MG CAPSULE PO SCH ×3 (08:50→20:32)
[2018-10-18] MEDS: CARVEDILOL 3.125 MG TAB PO SCH ×2 (08:50→20:31)
[2018-10-18] MEDS: LOSARTAN POTASSIUM 25 MG TAB PO SCH (08:50)
[2018-10-18] MEDS: PANTOprazole 40 MG TAB PO SCH (08:51)
[2018-10-18] MEDS: POTASSIUM CHLORIDE 20 MEQ TABCR PO SCH ×2 (08:51→20:30)
[2018-10-18] MEDS: SERTRALINE HCL 50 MG TABLET PO SCH (08:52)
[2018-10-18] MEDS: methylPREDNISolone 40 MG in SYRINGE 0 ML IV SCH ×3 (08:53→20:30)
[2018-10-18] MEDS: FUROSEMIDE 40 MG in SYRINGE 0 ML IV SCH ×2 (08:53→15:50)
[2018-10-18] MEDS: INSULIN ASPART 100 UNITS/ML 3 ML PEN SC SCH ×4 (08:58→20:36)
[2018-10-18] MEDS: DOXYCYCLINE HYCLATE 100 MG in DEXTROSE 5% 100 ML IV SCH ×2 (09:03→20:41)
--- NOTE | 2018-10-18 16:57 | Hospitalist Progress Note ---
Date of Service October 18, 2018 Assessment & Plan (1) Acute respiratory failure with hypoxia: Likely combination of eosinophilic asthma exacerbation and acute/chronic diastolic CHF. Much improved, now weaned off O2 but did require for it to be connected to her CPAP last night Cont steroids IV and switch to po likely tomorrow -continue narrow-spectrum abx with doxy and switch to po tomorrow -continue diuresis with IV lasix. -check overnight POx study with CPAP on RA to see if needs O2 with sleep (2) Acute on chronic diastolic CHF (congestive heart failure): COntinues to improve. Despite weights here being lower than upon dc last admission, she reports she had lost yet another 9 lbs after last discharge, which she gained back in the last week. Reports she was feeling very dry in the mouth and was "downing" multiple glasses of water. -Cont IV lasix BID. -BUN and Cr stable today. -follow BMP in am. -Cont Low Na diet, fluid restriction of 1500mL/day. -Cont BB and ARB. (3) Asthma: eosinophilic asthma exacerbation -- improved. No wean on steroids today - likely tomorrow. Cont doxy BID. Cont nebs, add flutter valve and incentive spirometry. Tessalon 100mg TID She has been on Spiriva and Symbicort in the past without effect, Dulera caused severe itching, Breo Ellipta caused headaches. Budesonide nebs while here and was prescribed this at home but ran out and thought it was a prn--> will give 30 day cupply on discharge She will continue benralizumab injections outpatient per Allergy after discharge (sees Dr. Lindsey). (4) Diabetes: Hold Metformin while inpatient Supplemental sliding scale w/ novolog Low threshold for lantus Control thus far acceptable (5) Hypokalemia: resolved cont supplementation (6) EPHRAIM on CPAP: Patient admits to noncompliance with CPAP. She is in the process of obtaining a new provider and mask -CPAP qHS -check overnight study with CPAP on RA as above (7) Obesity: BMI about 40 (8) HTN (hypertension), benign: Continue Losartan and Carvedilol - adjust as needed (9) GERD (gastroesophageal reflux disease): Ranitidine and Protonix (10) Anxiety and depression: Continue Sertraline and xanax prn (11) DVT prophylaxis: lovenox daily Dispo-improving, possible dc tomorrow Subjective Feeling much better, feels like she has turned the corner much quicker than previous hospital stays. Is off O2 and walking to the bathroom with only mild dyspnea. Dry cough. No further sore throat-just itchy throat, no fevers or body aches. Review of Systems Review of Systems: All systems reviewed & are unremarkable except as noted in HPI & below Physical Exam Constitutional: WD/WN, vitals as above + morbidly obese Eyes: PERRL, conjunctivae normal, anicteric sclerae ENMT: external ear and nose normal, oropharynx normal Neck: trachea midline, no thyromegaly Respiratory: normal respiratory effort, lungs clear to auscultation (is the best I have ever heard her lungs sound) Cardiovascular: RRR, no murmur, no edema Gastrointestinal (Abdomen): normal bowel sounds, soft, nontender, no hepatosplenomegaly Musculoskeletal: Extremities: extremities normal to inspection; no cyanosis and no clubbing Skin: no rashes, warm and dry Neurologic: moves all extremities and awake; no focal motor deficits Psychiatric: A+Ox3, euthymic affect Results & Data Vital Signs (Past 12 Hours) Vital Signs Temp Pulse Resp BP BP Pulse Ox 10/18/18 15:18 76 16 92 10/18/18 14:56 36.8 C 70 20 135/79 90 10/18/18 14:10 93 10/18/18 11:09 76 18 95 10/18/18 07:21 36.8 C 70 20 144/73 H 95 10/18/18 07:08 74 18 93 Laboratory Results BMP wnl except glucose 164, BCx NGTD Flu swab negative (1) Diabetes Diabetes mellitus complication status: without complication 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: without local intermodal truck driver use Diabetes mellitus type: type 2 Qualified Code(s): E11.9 - Type 2 diabetes mellitus without complications (2) GERD (gastroesophageal reflux disease) Esophagitis presence: esophagitis presence not specified Qualified Code(s): K21.9 - Gastro-esophageal reflux disease without esophagitis (3) Obesity Body mass index: BMI 39.0-39.9 Obesity classification: adult class 2 (BMI 35 - 39.9) Obesity type: unspecified obesity type Serious obesity comorbidity presence: with serious comorbidity Qualified Code(s): E66.01 - Morbid (severe) obesity due to excess calories; Z68.39 - Body mass index (BMI) 39.0-39.9, adult (4) Asthma Asthma complication type: with acute exacerbation Asthma persistence: persistent Asthma severity: severe Qualified Code(s): J45.51 - Severe persistent asthma with (acute) exacerbation
[2018-10-18] MEDS: ENOXAPARIN INJ 40 MG/0.4 ML SYR SQ SCH (20:31)
[2018-10-18] MEDS: MONTELUKAST SODIUM 10 MG TABLET PO SCH (20:32)
[2018-10-19] MEDS: ALBUT/IPRATROP 3MG/0.5MG NEB 3 ML VIAL NEB SCH ×4 (05:51→15:05)
[2018-10-19] MEDS: BUDESONIDE 0.5 MG/2 ML VIAL (PULMICORT) INH SCH (07:38)
[2018-10-19] MEDS: DOXYCYCLINE HYCLATE 100 MG in DEXTROSE 5% 100 ML IV SCH (08:25)
[2018-10-19] MEDS: BENZONATATE 100 MG CAPSULE PO SCH ×2 (08:26→15:13)
[2018-10-19] MEDS: POTASSIUM CHLORIDE 20 MEQ TABCR PO SCH (08:26)
[2018-10-19] MEDS: PANTOprazole 40 MG TAB PO SCH (08:26)
[2018-10-19] MEDS: LOSARTAN POTASSIUM 25 MG TAB PO SCH (08:27)
[2018-10-19] MEDS: FUROSEMIDE 40 MG in SYRINGE 0 ML IV SCH (08:27)
[2018-10-19] MEDS: CARVEDILOL 3.125 MG TAB PO SCH (08:27)
[2018-10-19] MEDS: methylPREDNISolone 40 MG in SYRINGE 0 ML IV SCH ×2 (08:27→15:13)
[2018-10-19] MEDS: SERTRALINE HCL 50 MG TABLET PO SCH (08:27)
[2018-10-19] MEDS: INSULIN ASPART 100 UNITS/ML 3 ML PEN SC SCH ×2 (08:30→12:44)
[2018-10-19 09:03] LABS: BUN Creatinine Ratio 31.7 (10-20); Calcium 9.5 mg/dl (8.5-10.1); Est GFR (African American) 82.2; Est GFR (Non-African American) 70.9; Magnesium 2.3 mg/dl (1.8-2.4); Potassium 3.9 mmol/L (3.5-5.1)
--- NOTE | 2018-10-19 15:27 | Discharge Summary ---
Date of Service October 19, 2018 Admission HPI Per Admitting Provider Raven Carreon is a 63yo C female with history of severe persistent asthma, eosinophilic type, GERD, EPHRAIM on CPAP presenting with SOB. She was admitted in July with similar symptoms. At that time her SOB was thought to be secondary to acute exacerbation of CHF as well as her underlying asthma. She was diuresed and treated with steroids and nebs with improvement. She was discharged home in stable condition. States that she never quite returned to baseline after that hospital stay. Her most recent symptoms began two days ago with fevers, chills, body aches, extreme fatigue and shortness of breath. Patient reports becoming dyspneic with minimal exertion. The shortness of breath progressed through yesterday and worsened through the night. She was using her nebulizer machine q 6 hours yesterday. Last night she gave herself back to back treatments with minimal improvement in symptoms. She increased her home O2 from 2L to 3L which also provided some relief. Patient additionally complains of orthopnea requiring her to sleep upright in a chair last night, edema of her hands and legs and weight gain (reported 10# since July). She has had a dry cough since today and tightness in her chest. She was seen by her PCP today and was administered a neb treatment and sent to the ER . Upon arrival to the ER she was mildly hypoxic, 86% on room air. She was administered an hour long neb treatment with some improvement in her SOB. Patient was diagnosed with asthma in 2013. She is overall quite concerned about her quality of life. States that she was active and independent prior to her di agnosis of asthma. Since her diagnosis she has been having a difficult time with activity and exertion. She has a large O2 tank which is difficult to take to work. Patient follows with Dr. Canada, last seen on 03 October 2018. She also follows with Dr. Santana from [facility]. She has been receiving Fasenra (benralizumab) injections, recently received her 4th injection. States she notes minimal improvement in her symptoms with the injections but is overall disappointed with the results. She has EPHRAIM and wears CPAP at night although states she is not as compliant as she should be. She complains of nasal congestion from the CPAP. Patient is to have an overnight pulse oximetry study performed outpatient as well as repeat PFTs. ER Course: Albuterol 12mL, Lasix 40mg IV, Levaquin 750mg, Magnesium sulfate 1gm, Solumedrol 125mg IV, KCL 10mEq, Principal Diagnosis Acute asthma exacerbation Discharge Exam Constitutional WD/WN, vitals as above + morbidly obese Eyes PERRL, conjunctivae normal, anicteric sclerae ENMT external ear and nose normal, oropharynx normal Neck trachea midline, no thyromegaly Respiratory normal respiratory effort, lungs clear to auscultation (is the best I have ever heard her lungs sound) Cardiovascular RRR, no murmur, no edema Gastrointestinal (Abdomen) normal bowel sounds, soft, nontender, no hepatosplenomegaly Musculoskeletal Extremities: extremities normal to inspection; no cyanosis and no clubbing Skin no rashes, warm and dry Neurologic moves all extremities and awake; no focal motor deficits Psychiatric A+Ox3, euthymic affect Discharge Data Allergies Allergy/AdvReac Type Severity Reaction Status Date / Time formoterol Allergy Severe tongue Verified 10/16/18 14:43 swells mometasone furoate Allergy Severe tongue Verified 10/16/18 14:43 swells ketorolac Allergy Intermediate ITCHING Verified 10/16/18 14:43 adhesive tape Allergy Redness of Verified 10/16/18 14:43 Skin Consultations None Procedures Performed None Ordered Studies CXR Hospital Course (1) Acute respiratory failure with hypoxia: Likely secondary to a combination of eosinophilic asthma exacerbation and acute/chronic diastolic CHF. Much improved, now weaned off O2 but did require for it to be connected to her CPAP last night Received steroids IV and switched to po steroids upon discharge for taper -treated with doxycycline for bronchitis and should finish out course of this for 7 days -received diuresis with IV lasix. -checked overnight POx study with CPAP on RA and spent 236 min with a POx<88%--> definitely needs O2 connected to her CPAP at home qhs (2) Acute on chronic diastolic CHF (congestive heart failure): Continues to improve. Despite weights here being lower than upon [place]j last admission, she reports she had lost yet another 9 lbs after last discharge, which she gained back in the last week prior to admission. Reports she was feeling very dry in the mouth and was "downing" multiple glasses of water. Cardiology notes from CHF clinic report they are not convinced her volume overload is from diastolic CHF and that they believe it is from her chronic steroid use. -Received IV lasix BID and will convert to po lasix 80mg qAM on discharge with close f/u of weight. -BUN and Cr stable -Cont Low Na diet, fluid restriction of 1500mL/day. -Cont BB and ARB. (3) Asthma: eosinophilic asthma exacerbation -- improved. Treated as above with IV steroids, nebs, doxycycline Cont nebs, add flutter valve and incentive spirometry. -continue Tessalon 100mg TID She has been on Spiriva and Symbicort in the past without effect, Dulera caused severe itching, Breo Ellipta caused headaches. Budesonide nebs while here and was prescribed this at home but ran out and thought it was a prn--> will give 30 day supply on discharge She will continue benralizumab injections outpatient per Allergy after discharge (sees Dr. Lindsey). (4) Diabetes: Held Metformin while inpatient Supplemental sliding scale w/ novolog Plan to restart metformin on dc (5) Hypokalemia: resolved cont supplementation (6) EPHRAIM on CPAP: Patient admits to noncompliance with CPAP. She is in the process of obtaining a new provider and mask -CPAP qHS -overnight study with CPAP on RA as above (7) Obesity: BMI about 40 (8) HTN (hypertension), benign: Continue Losartan and Carvedilol - adjust as needed (9) GERD (gastroesophageal reflux disease): Ranitidine and Protonix (10) Anxiety and depression: Continue Sertraline and xanax prn (11) DVT prophylaxis: lovenox daily was provided Dispo-improved, stable for dc to home today Total Time Total Time Spent Total Time Spent (In Minutes): >30 min Total Time Includes: Examination of the Patient, Discharge Planning and Medication Reconciliation Discharge Plan Discharge Items Patient Disposition: Home - Home Health Services Reason For Visit: HYPOXIC RESPIRATORY FAILURE Discharge Diagnosis: Acute hypoxic respiratory failure, Acute asthma exacerbation, CHF exacerbation Condition: Good Discharge Goals: Diagnostic testing, Improve disease control, Learn about illness and Therapeutic intervention Activity: As commented below Lifting: Gradually increase as tolerated Bathing: No limitations Exercise/Sports: Gradually increase as tolerated Driving/Machine Use: No limitations Non-emergency contact: Primary Care Provider Call non-emergency contact if: you have any medication questions, your symptoms worsen and you have a fever Follow-up/Referrals: Pranav Durand CRNP [Nurse Practitioner] - 10/23/18 10:20 am (Pranav is Dr. Cartwright's Nurse Practitioner) Diet: Carb Consistent or DM2 and Low Sodium (2gm) Fluids: 1800ml (7 cups) Addtl Provider Instructions: You were admitted with respiratory distress and low oxygen levels likely secondary to a viral illness but you were given doxycycline in case of bacterial bronchitis as well. Please take the prednisone taper as directed by your Allergy/Asthma doctor. You were also given IV lasix to help take fluid off. Your lasix dose will be increased to 80mg in the morning and 40mg in the afternoon. You had an overnight sleep study here that showed you definitely need to connect the oxygen at 2L to your CPAP each night. Please follow up with your PCP office within 1 week as scheduled for you. Prescriptions: New doxycycline hyclate 100 mg Capsule 100 mg PO BID Qty: 8 RF: 0 benzonatate [Tessalon Perles] 100 mg Capsule 100 mg PO TID Qty: 30 RF: 0 montelukast 10 mg Tablet 10 mg PO HS Qty: 30 RF: 0 prednisone 10 mg tablet 70 mg PO DAILY Qty: 30 RF: 0 Continued azelastine 137 mcg (0.1 %) aerosol,spray 2 spray Intranasal DAILY RF: 0 albuterol sulfate [ProAir HFA] 90 mcg/actuation Hfa Aerosol Inhaler 2 puff INHALATION Q4H PRN (Reason: Shortness Of Breath) RF: 0 ranitidine HCl 300 mg tablet 300 mg PO HS RF: 0 carvedilol 3.125 mg tablet 3.125 mg PO BID RF: 0 pantoprazole 40 mg tablet,delayed release (DR/EC) 40 mg PO DAILY RF: 0 losartan 25 mg tablet 25 mg PO DAILY RF: 0 ipratropium bromide 0.02 % solution 1 vial Inhalation QID PRN (Reason: Shortness Of Breath Or Wheezing) RF: 0 alprazolam 0.25 mg tablet 0.25 mg PO Q12H PRN (Reason: Anxiety) RF: 0 potassium chloride 20 mEq tablet,ER particles/crystals 40 meq PO BID RF: 0 sertraline 50 mg tablet 50 mg PO DAILY RF: 0 levalbuterol HCl 1.25 mg/0.5 mL Solution For Nebulization 1.25 mg INHALATION Q6H PRN (Reason: Shortness Of Breath Or Wheezing) RF: 0 cholecalciferol (vitamin D3) [Vitamin D3] 2,000 unit Capsule 2,000 units PO DAILY RF: 0 benralizumab 30 mg/mL syringe 30 mg subcut DIRECTED RF: 0 metformin 500 mg tablet 500 mg PO BIDM Qty: 60 RF: 2 Changed furosemide 40 mg tablet 80 mg PO QAM 30 Days Qty: 90 RF: 0 budesonide 0.5 mg/2 mL suspension for nebulization 2 ml Inhalation BID Qty: 120 RF: 0 Stand-Alone Forms: [facility] Discharge Orders: Discharge Order (Routine); Ordered 10/19/18 Ordered By: Cassy Rivera Admission Data Admit Date/Time: 10/16/18 16:45 Attending Provider: Cassy Rivera Admit Provider: Ladonna Saavedra Primary Care Provider: Rosalva Lane Service: Medical Other Interventions: Discharge Summary Assessment (RN) Last Done: 10/19/18 15:24 Pending Studies at Discharge: No DC Date/Time DO NOT enter until pt leaves facility: 10/19/18 16:15
[2018-10-19] MEDS ORDERED: DOXYCYCLINE HYCLATE 100 MG CAP PO SCH (21:00)
--- OUTSIDE RECORDS SUMMARY | 2018-10-23 15:20 | External Medical Summary | Continuity of Care Document ---
:1955 Author Name Kylee Keller, Provider Address Unavailable Unavailable , Care Team Providers Name Role Phone EvinNPG Arianna, Provider Unavailable [email or web address] DO, Choco Unavailable [email or web address] Dominick DO, Mitch Unavailable [email or web address] Nish BELCHER, Varghese Unavailable [email or web address] Max Keller, Iglesia Unavailable [email or web address] Ladarius MALDONADO, Pranav Beatty Unavailable [email or web address] DOMINGO Keller, CHOCO Wise Unavailable Unavailable CARDAMONE, Eladia Unavailable Unavailable DOMINICK Keller, Eladia Unavailable Unavailable Unavailable Unavailable Unavailable Problems Urinary incontinence (788.30) (R32) Lumbago (724.2) (M54.5) Osteoarthritis (715.90) (M19.90) Numerous moles (216.9) (D22.9) Anxiety (300.00) (F41.9) Pulmonary nodules (793.19) (R91.8) Encounter for screening mammogram for breast cancer (V76.12) (Z12.31) Vitamin D deficiency (268.9) (E55.9) Encounter for removal of sutures (V58.32) (Z48.02) Benign essential hypertension (401.1) (I10) Hypokalemia (276.8) (E87.6) Arthritis of knee, right (716.96) (M17.11) Edema (782.3) (R60.9) Cardiomyopathy (425.4) (I42.9) Hypoxia (799.02) (R09.02) Asthma (493.90) (J45.909) Chronic diastolic congestive heart failure (428.32) (I50.32) Diabetes mellitus, type 2 (250.00) (E11.9) GERD without esophagitis (530.81) (K21.9) 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 DO Choco [address] Start: 10-Dec-2016 Quantity: 1 60 x 2.5 ML Plas Con t Refills: 3 Oxygen; 3 LPM via NC PRN for ambulation Start: 26-Dec-2017 Refills: 0 predniSONE 10 MG Oral Tablet; TAKE 4 TAB S DAILY X7 DAYS, 3 TABS DAILY X3 DAYS, 2 TABS DAILY X3 DAYS, THEN 1 TAB DAILY X3 DAYS Arianna Santana Faoud Start: 04-May-2018 Quantity: 50 Refills: 0 metFORMIN HCl ER 500 MG Oral Tablet Exte nded Release 24 Hour; TAKE 1 TABLET BY MOUTH TWICE DAILY. DO Choco Lane Start: 22-Aug-2018 Quantity: 60 Refills: 5 Montelukast Sodium 10 MG Oral Tablet; TAKE 1 TABLET EVERY DA Y Start: 20-Oct-2018 Quantity: 30 Refills: 11 Doxycycline Hyclate 100 MG Oral Capsule; 1 po bid x 10 days. Start: 20-Oct-2018 End: Refills: 0 24-Oct-2018 Benzonatate 200 MG Oral Capsule; TAKE 1 CAPSULE 3 TIMES MANUELA Y NEEDED. Start: 09-Aug-2018 Refills: 0 raNITIdine HCl - 300 MG Oral Tablet; TAKE 1 TABLET MINOO LY AT BEDTIME. DO Choco Lane Start: 22-Aug-2017 Quantity: 90 Refills: 3 Carvedilol 3.125 MG Oral Tablet; Take 1 tablet twice a day JOEL Durand Start: 13-Sep-2018 Quantity: 180 Refills: 1 Pantoprazole Sodium 40 MG Oral Tablet De layed Release; TAKE ONE TABLET BY MOUTH DAILY DO Choco Lane Start: 13-Mar-2018 Quantity: 90 Refills: 3 Losartan Potassium 25 MG Oral Tablet; Take 1 tablet daily DO Choco Rapp Start: 11-Aug-2018 Quantity: 90 Refills: 2 Azelastine HCl - 0.1 % Nasal Solution; I NSTILL 2 SPRAYS IN EACH NOSTRIL ONCE DAILY Arianna Santana Faoud Start: 09-Jun-2018 Quantity: 1 30 ML Bottle Refills: 11 Furosemide 40 MG Oral Tablet; TAKE 2 TAB LETS IN THE MORNING AND 1 TABLET IN THE EVENING. DO Choco Lane Start: 04-Apr-2017 Refills: 0 Budesonide 0.5 MG/2ML Inhalation Suspens ion; Sig: one unit dose nebulizer two times a day. DO Mitch Canada Start: 07-Mar-2018 Quantity: 6 30 x 2 ML Plas Cont Refills: 3 Fasenra 30 MG/ML Subcutaneous Solution P refilled Syringe; INJECT 1 SYRINGE SUBCUTANEOUSLY EVERY 4 WEEKS FOR 3 DOSES, FOLLOWED BYEVERY 8 WEEKS THEREAFTER. Arianna Santana Faoud Start: 25-Jul-2018 Quantity: 1 Pre-filled Pen Syrin ge(Prefilled Syringe) Refills: 3 EPINEPHrine 0.3 MG/0.3ML Injection Solut ion Auto-injector; INJECT 0.3ML INTRAMUSCULARLY DIRECTED. Arianna Santana Faoud Start: 14-Jun-2018 Quantity: 2 Refills: 1 Levalbuterol HCl - 1.25 MG/3ML Inhalatio n Nebulization Solution; USE 1 UNIT DOSE IN NEBULIZER EVERY 6 HOURS NEEDED Mixed with Ipratropium Ponce DO Mitch Canada Start: 28-Jun-2017 Quantity: 15 25 x 3 ML Plas Cont Refills: 0 Vitamin D3 2000 UNIT Oral Capsule; TAKE 1 CAPSULE Daily Start: 06-Sep-2016 Quantity: 30 Refills: 0 ALPRAZolam 0.25 MG Oral Tablet; TAKE 1 TABLET EVERY 12 HOURS NEEDED. DO Varghese Mock Quantity: 180 Refills: 0 Accu-Chek Sole Plus In Vitro Strip; once daily DO Choco Lane Start: 09-Aug-2018 Quantity: 2 100 Strip Box Refills: 5 Accu-Chek Sole Plus w/Device Kit; test once daily DO Domingo Choco Start: 09-Aug-2018 Quantity: 1 Refills: 0 Accu-Chek Safe-T Pro Lancets; TEST ONCE DAILY. DO Domingo Roland isaura Start: 09-Aug-2018 Quantity: 1 200 Unit Bottle Refills: 5 Procedures Pulse Oximetry - Overnight Study Date: 03-Oct-2018 Spirometry - Pre & Post (30mins) Date: 03-Oct-2018 History of Total Abdominal Hysterectomy With Status: Completed Removal Of Both Ovaries History of Knee Surgery Status: Complete d History of Cholecystectomy Status: Compl eted History of Appendectomy Status: Complete d History of Sinus Surgery Status: Complet ed History of Tonsillectomy Status: Complet ed History of Laparoscopic Sling Operation For Stress Status: Completed Incontinence Immunizations Pneumococcal polysaccharide vaccine, 23 valent On: 22-Oct-19 13 Influenza On: 25-Apr-2014 Influenza On: 25-Apr-2015 Influenza On: 18-Mar-2016 16:42 Lot #: [id number], SANOFI PASTEUR Fluzone Quadrivalent 0.5 ML Intramuscular Suspension On: 17:36 Lot #: [id number], SANOFI PASTEUR Tdap (Adacel) On: 30-Nov-2017 17:37 Lot #: [id number], SANOFI PASTEUR Flublok Quadrivalent 0.5 ML Intramuscular Solution Pre filled Syringe On: 04-May-2018 15:44 Lot #: [id number], SANOFI PASTEUR Prevnar 13 Intramuscular Suspension On: 23-Aug-2018 16:56 Lot #: [id number], Chance (app) [place] Family History Sister Family history of emphysema (V17.6) (Z82.5) Status: Active Mother Family history of Ovarian cancer (183.0) (C56.9) Status: Act shirlene Father Family history of lung cancer (V16.1) (Z80.1) Status: Active Family history of malignant neoplasm of prostate (V16. 42) (Z80.42) Status: Active natural son Family history of pneumonia (V18.8) (Z83.1) Status: Active Unknown Family Member Family history of malignant neoplasm of Status: Active Comments: Family History prostate (V16.42) (Z80.42) Social History - Smoking Status Never smoker Plan of Treatment Planned Observations Planned Goals not documented Results X-Ray Chest 1 View Portable (Pending) Laboratory: [facility] [address] [place] 16-Oct-2018 13:46 X-Ray Chest 1 VW Portable (CXR1P) [facility] [place], [place] [phone] XRay Report Bart t: CHARLIE MORA Admit Date: MR#: [id number] Address1: [address] [place] [address] Acct ID:[id number] Address2 : Date: 1955 [facility] Zip: [place] [address] Age: 63 Location: ED Sex: F Room/Be d: Att Phy: Diagno sis: CANT BREATH Micaela Phy: Choco Lane, Service Da te: 10/16/18 Fam Phy: Interpreting Phy: Renard Godinez MD Admit Phy: Ordering Phy: Renzo Caceres MD cc: XR chest 1V portable CLINICAL HISTORY: Chest Pain dyspnea COMPARISON STUDY: 08/04/2018 FINDING S: Mild stable cardia megaly. Slight increa se in bronchovascular prominence compared to t he prior study. Slight increase in basilar interstitial prominence. IMPRESSIO N: Findings of early congestive failure. The above report was generated using voice recognition software. It ma y contain grammatical, syntax or spelling errors. Electronically sig ayan by: Renard Godinez M.D. 10/16/2018 1:46 PM Dictated: 10/16/18 1346 Transcribed: 10/16/18 1346 Vital Signs 16-Oct-2018 11:45 Systolic 143 mm[Hg] Comments: Location: LUE; Position: Sitting Diastolic 90 mm[Hg] Comments: Location: LUE; Position: Sitting FiO2 3 L/min Weight 259 lb BMI Calculated 40.57 kg/m2 Height 67 in BSA Calculated 2.26 m2 Heart Rate 96 /min O2 Saturation 90 % Comments: Source: Na chris Cannula 03-Oct-2018 15:20 Systolic 126 mm[Hg] Diastolic 72 mm[Hg] Weight 253.125 lb BMI Calculated 39.65 kg/m2 BSA Calculated 2.23 m2 Heart Rate 83 /min O2 Saturation 91 % Comments: Source: RA Encounters Appointment; Choco Lane DO 16-Oct-2018 11:40 Encounter Diagnosis: Problem not documented Appointment; Nurse, Allergy 03-Oct-2018 16:00 Encounter Diagnosis: Problem not documented Appointment; Mitch Canada DO 03-Oct-2018 15:30 Encounter Diagnosis: Problem not documented Appointment; Nurse Mariaelena 23-Aug-2018 17:00 Encounter Diagnosis: Problem not documented Appointment; Choco Lane DO 18-Aug-2018 15:20 Encounter Diagnosis: Problem not documented Appointment; Romelia Reyes PA-C 18-Aug-2018 12:00 Encounter Diagnosis: Problem not documented Appointment; Nurse, Allergy 11-Aug-2018 11:30 Encounter Diagnosis: Problem not documented Appointment; Isis Aragon CRNP 11-Aug-2018 10:00 Encounter Diagnosis: Problem not documented Appointment; Nurse, Allergy 14-Jul-2018 15:10 Encounter Diagnosis: Problem not documented Appointment; Iglesia Santana M.D. 16-Jun-2018 13:40 Encounter Diagnosis: Problem not documented Appointment; Nurse, Allergy 16-Jun-2018 11:50 Encounter Diagnosis: Problem not documented Appointment; Iglesia Santana M.D. 09-Jun-2018 16:20 Encounter Diagnosis: Problem not documented Appointment; Iglesia Santana M.D. 04-May-2018 15:20 Encounter Diagnosis: Problem not documented Appointment; Mitch Canada DO 26-Apr-2018 9:30 Encounter Diagnosis: Problem not documented Appointment; Choco Lane DO 12-Apr-2018 9:20 Encounter Diagnosis: Problem not documented Appointment; Choco Lane DO 05-Apr-2018 15:40 Encounter Diagnosis: Problem not documented Appointment; Mitch Canada DO 24-Feb-2018 11:00 Encounter Diagnosis: Problem not documented Appointment; Choco Lane DO 02-Jan-2018 9:20 Encounter Diagnosis: Problem not documented Appointment; Choco Lane DO 21-Dec-2017 16:00 Encounter Diagnosis: Problem not documented Appointment; Nurse Mariaelena 30-Nov-2017 18:00 Encounter Diagnosis: Problem not documented Appointment; Mitch Canada DO 09-Nov-2017 15:30 Encounter Diagnosis: Problem not documented Appointment; Choco Lane DO 31-Oct-2017 14:00 Encounter Diagnosis: Problem not documented Appointment; Choco Lane DO 09-Sep-2017 16:00 Encounter Diagnosis: Problem not documented Appointment; Choco Lane DO 31-Aug-2017 8:00 Encounter Diagnosis: Problem not documented Appointment; Choco Lane DO 29-Aug-2017 13:40 Encounter Diagnosis: Problem not documented Appointment; Mitch Canada DO 06-Jul-2017 15:30 Encounter Diagnosis: Problem not documented Appointment; Choco Lane DO 04-Jul-2017 9:20 Encounter Diagnosis: Problem not documented Appointment; Choco Lane DO 21-Jun-2017 14:00 Encounter Diagnosis: Problem not documented Appointment; Choco Lane DO 09-Jun-2017 16:00 Encounter Diagnosis: Problem not documented Appointment; Chandra Del Castillo M.D. 03-Jun-2017 15:45 Encounter Diagnosis: Problem not documented Appointment; Echo/Stress, Echo/Stress 30-May-2017 15:15 Encounter Diagnosis: Problem not documented Appointment; Choco Lane DO 23-May-2017 11:00 Encounter Diagnosis: Problem not documented Appointment; Choco Lane DO 16-May-2017 16:20 Encounter Diagnosis: Problem not documented Appointment; Nurse Mariaelena 02-May-2017 17:45 Encounter Diagnosis: Problem not documented Appointment; Mitch Canada DO 15-Apr-2017 10:30 Encounter Diagnosis: Problem not documented Appointment; Pulmonary, Funct Testing 15-Apr-2017 9:30 Encounter Diagnosis: Problem not documented Appointment; Choco Lane DO 07-Apr-2017 16:20 Encounter Diagnosis: Problem not documented Appointment; Choco Lane DO 04-Apr-2017 16:20 Encounter Diagnosis: Problem not documented Appointment; Choco Lane DO 01-Mar-2017 8:00 Encounter Diagnosis: Problem not documented Appointment; Choco Lane DO 24-Feb-2017 16:20 Encounter Diagnosis: Problem not documented Appointment; Elise Cuevas PA-C 17-Dec-2016 13:00 Encounter Diagnosis: Problem not documented Appointment; Elise Cuevas PA-C 10-Dec-2016 9:50 Encounter Diagnosis: Problem not documented Appointment; Ladonna Nickerson PA-C 15-Nov-2016 18:00 Encounter Diagnosis: Problem not documented
== END 2018-10-19 16:15 | disposition home health service (06) | DRG 196 ==
LOC: ED 13:06 → SUATTDRO 16:45 → 4E 16:45
DX: Z68.41 Body mass index [BMI] 40.0-44.9, adult; E11.9 Type 2 diabetes mellitus without complications; G47.33 Obstructive sleep apnea (adult) (pediatric); J96.01 Acute respiratory failure with hypoxia; I50.33 Acute on chronic diastolic (congestive) heart failure; F41.8 Other specified anxiety disorders; Z79.84 Long term (current) use of oral hypoglycemic drugs; E66.01 Morbid (severe) obesity due to excess calories; Z91.14 Patient's other noncompliance with medication regimen; I11.0 Hypertensive heart disease with heart failure; E87.6 Hypokalemia; K21.9 Gastro-esophageal reflux disease without esophagitis; J82 Pulmonary eosinophilia, not elsewhere classified

== ENCOUNTER 2019-07-11 23:25 | Observation (INO) ==
[2019-07-11] MEDS ORDERED: fentaNYL citrate 100 MCG/2 ML VIAL IV STA (23:52)
[2019-07-11] MEDS ORDERED: NITROGLYCERIN 2% OINTMENT 30GM TUBE ONE (23:57)
[2019-07-12 00:05] LABS: Basophils # (auto) 0.01 K/uL (0-0.2); Basophils % (auto) 0.1 %; Hematocrit (blood only) 40.5 % (37-47); Hemoglobin 13.4 g/dL (12.0-16.0); Immature Granulocytes # (auto) 0.02 K/uL (0.00-0.02); Immature Granulocytes % (auto) 0.2 %; Lymphocytes # (auto) 3.58 K/uL (1.2-3.4); Lymphocytes % (auto) 43.6 %; Mean Corpuscular Hemoglobin 28.5 pg (25-34); Mean Corpuscular Hgb Conc 33.1 g/dL (32-36); Mean Platelet Volume 10.9 fL (7.4-10.4); Monocytes # (auto) 0.72 K/uL (0.11-0.59); Monocytes % (auto) 8.8 %; Neutrophils # (auto) 3.89 K/uL (1.4-6.5); Neutrophils % (auto) 47.3 %; Platelet Count 307 K/uL (130-400); RDW Coefficient of Variation 14.6 % (11.5-14.5); RDW Standard Deviation 46.2 fL (36.4-46.3); Red Blood Count 4.71 M/uL (4.2-5.4); White Blood Count 8.22 K/uL (4.8-10.8)
[2019-07-12] MEDS ORDERED: NITROGLYCERIN 2% OINTMENT 30GM TUBE EXT ONE (00:11)
[2019-07-12] MEDS ORDERED: fentaNYL citrate 100 MCG/2 ML VIAL IV STA (00:17)
[2019-07-12 00:28] LABS: Alanine Aminotransferase 26 U/L (12-78); Albumin Level 3.6 gm/dl (3.4-5.0); Aspartate Aminotransferase 29 U/L (15-37); Blood Urea Nitrogen 16 mg/dl (7-18); Calcium 8.8 mg/dl (8.5-10.1); Carbon Dioxide 31 mmol/L (21-32); Chloride 104 mmol/L (98-107); Est GFR (African American) 69.1; Est GFR (Non-African American) 59.6; Glucose 126 mg/dl (70-99); Lipase 197 U/L (73-393); Potassium 3.1 mmol/L (3.5-5.1); Sodium 141 mmol/L (136-145)
[2019-07-12 00:33] LABS: Albumin Globulin Ratio 0.9 (0.9-2); Alkaline Phosphatase 146 U/L (45-117); Bilirubin,Total 0.5 mg/dl (0.2-1); Globulin 3.8 gm/dl (2.5-4.0); Total Protein 7.4 gm/dl (6.4-8.2); Troponin I < 0.015 ng/ml (0-0.045)
[2019-07-12] MEDS ORDERED: POTASSIUM CHLORIDE / WTR 10 MEQ/100 ML PLCT IV STA ×2 (01:44→04:00)
[2019-07-12] MEDS ORDERED: ALPRAZolam 0.25 MG TABLET PO PRN (01:45)
--- NOTE | 2019-07-12 02:03 | History & Physical Report ---
Date of Service July 12, 2019 Assessment & Plan (1) Substernal chest pain: Obs tele trend trops CTA chest - no PE, no dissection. I suspect the source of pain is GI or musculoskeletal Consideration may be given to side effect from Viberza to which patient had taken first dose prior to symptoms. Patient has had cholecystectomy which can put her at risk for sphincter of Oddi spasm. Her lipase was normal. I am unsure if there is any connection, but thought it worth mentioning as the timing is suspicious. She had an echocardiogram in 2019 thus I did not feel need to repeat. (2) Chronic diastolic CHF (congestive heart failure): Stable no decompensation. Continue Lasix (3) Eosinophilic asthma: Continue Budesonide She takes Fasenra prn Xopenex nebs (4) DM w/o complication type II, uncontrolled: Metformin held due to IV dye load Will cover with sliding scale. (5) Irritable bowel syndrome with diarrhea: Had taken first dose of Viberzi on evening of 07/11. I will hold for now, but will defer to day team as when to resume. (6) GERD (gastroesophageal reflux disease): Continue Protonix and Pepcid. History of Present Illness 64 y/o female presented to the ED with substernal chest pain that radiated straight through to back with associated SOB and diaphoresis. This episode occurred suddenly as she lay down to sleep. She reports never having this much chest pain in the past. She felt that NTG improved the pain from 10/10 to 4/10. She is having nausea, but no vomiting. No F/C, cough, headache, lightheadedness or palpitations. She had a dobutamine stress test in 01/12 which was negative for ischemia. Of note, the patient did take first dose of Viberza the same evening which she was given on 07/11 for IBS. Whether or not this is significant is not clear at this time. Primary Care Provider: Rosalva Lane DO Allergies Allergy/AdvReac Type Severity Reaction Status Date / Time formoterol Allergy Severe tongue Verified 07/11/19 15:47 swells mometasone furoate Allergy Severe tongue Verified 07/11/19 15:47 swells ketorolac Allergy Intermediate ITCHING Verified 07/11/19 15:47 adhesive tape Allergy Mild Redness of Verified 07/11/19 15:47 Skin Home Medications Home Medications Medication Instructions Recorded Confirmed Type budesonide 2 ml INHALATION BID #120 ml 10/19/18 07/12/19 Rx epinephrine 0.3 mg/0.3 mL 0.3 ml IM .COMPLEX ea 12/18/18 07/12/19 History injection, auto-injector ipratropium bromide 0.02 % 0.5 mg INHALATION QID PRN #2.5 ml 01/16/19 07/12/19 Rx solution for inhalation benzonatate 200 mg capsule 200 mg PO TID PRN 01/26/19 07/12/19 History prednisone 10 mg tablets in a dose 10 mg PO UD PRN ea 01/26/19 07/12/19 History pack levalbuterol HCl 1.25 mg INHALATION UD PRN 02/10/19 07/12/19 History metformin 500 mg tablet,extended 500 mg PO BID #60 tab 02/13/19 07/12/19 Rx release 24 hr cyclobenzaprine 5 mg tablet 5 mg PO TID PRN #10 tab 03/09/19 07/12/19 Rx walker #1 ea 03/09/19 07/12/19 Rx carvedilol 3.125 mg tablet 3.125 mg PO BID #180 tab 03/28/19 07/12/19 Rx furosemide 40 mg tablet 40 mg PO BID #180 tab 04/11/19 07/12/19 Rx potassium chloride 20 mEq See Rx Instructions .ROUTE 05/07/19 07/12/19 Rx tablet,extended release(part/cryst) .COMPLEX #210 tab alprazolam 0.25 mg tablet 0.25 mg PO BID PRN #30 tab 05/08/19 07/12/19 Rx atorvastatin 20 mg PO QAM 06/04/19 07/12/19 History cholecalciferol (vitamin D3) 4,000 units PO QAM 06/04/19 07/12/19 History famotidine 40 mg PO QAM 06/04/19 07/12/19 History ferrous sulfate 325 mg PO HS 06/04/19 07/12/19 History pantoprazole 40 mg/kg PO QAM 06/04/19 07/12/19 History losartan 25 mg tablet 25 mg PO QAM #90 tab 06/05/19 07/12/19 Rx azelastine 137 mcg (0.1 %) nasal See Rx Instructions .ROUTE 06/18/19 07/12/19 Rx spray aerosol .COMPLEX #30 spray benralizumab 30 mg/mL subcutaneous 30 mg SQ .COMPLEX #1 ml 07/05/19 07/12/19 Rx auto-injector sertraline 50 mg tablet 50 mg PO QAM #90 tab 07/11/19 07/12/19 Rx Past Med/Surg History Medical History Anxiety and depression Asthma (Chronic) Chronic diastolic CHF (congestive heart failure) DM w/o complication type II, uncontrolled Eosinophilic asthma GERD (gastroesophageal reflux disease) HTN (hypertension), benign EPHRAIM on CPAP Oxygen dependent PRN DAYTIME 4L/MIN NC/HS ALWAYS WITH CPAP HS-F/U DR TAN Thyroid nodule Surgical History History of bladder surgery laparoscopic sling operation for stress incontinence History of cardiac cath 4-5 YRS AGO-NO STENTS NEEDED-[facility] History of colonoscopy History of esophagogastroduodenoscopy (EGD) Nausea and vomiting after administration of anesthetic agent S/P appendectomy S/P cholecystectomy S/P right knee surgery S/P sinus surgery S/P tonsillectomy S/P total abdominal hysterectomy and bilateral salpingo-oophorectomy secondary to abnormal pap smear, age 30 Family History Sister Family history of emphysema Family history of reaction to anesthesia Father Prostate cancer Lung cancer Son Pneumonia @ age 31 Mother Ovarian cancer Family history of reaction to anesthesia PONV Sister Family history of reaction to anesthesia Other No pertinent family history Social History Preferred Language: Irish Communication Ability: Effective Visual Impairment: No Limitations Hearing Ability: Normal Teacher Adventure Education Required: No Beliefs That Will Affect Care: None marital status: Current Living Situation: Spouse current occupational status: employed 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 Other Information That Helps Us Care for You: No other: of son at age 31; d/t Flu/ PNA infection Feels Safe at Home: Yes Smoking Status: Never smoker Tobacco Type: smokeless tobacco ; Do You Dip or Chew Tobacco: No ; Second Hand Exposure: No ; Hx Alcohol Use: No Hx Substance Use: No Childhood Exposure to Second-Hand Smoke: Yes Other Diet Comment: regular caffeine: Yes (coffee) during the past year weight has: other Dental Care, Regularly: Yes Physical Activity Frequency: Does not Exercise Seatbelt Use: always Sunscreen Use: Yes Review of Systems Review of Systems: All systems reviewed & are unremarkable except as noted in HPI & below Physical Exam Physical Exam: General- adult female, NAD Head- atraumatic Eyes- PERRL, EOMI, anicteric ENT- oropharynx clear Neck- supple, no JVD, no adenopathy, no thyromegaly. Lungs- CTA b/l no R/R/W. Heart- regular rhythm; no murmur, no gallop, no rub appreciated Abdomen- normal bowel sounds, soft, She does have a mild pressure sensation with palpation over the xiphoid process, this is close to the same location that she had pain earlier. Extremities- no pretibial edema, no calf tenderness; peripheral pulses intact Neuro- alert, oriented x 3; PERRL, EOMI; nephrology social worker II-XII grossly intact, non-focal. Skin- warm & dry Results & Data Vital Signs (Past 12 Hours) Vital Signs Temp Pulse Resp BP Pulse Ox 07/12/19 02:01 80 20 112/83 95 07/12/19 01:30 76 18 112/76 95 07/12/19 01:00 77 14 117/71 95 07/12/19 00:30 80 14 106/68 93 07/12/19 00:15 84 22 133/77 95 07/12/19 00:02 86 25 H 133/77 97 07/12/19 00:00 82 15 96 07/11/19 23:53 95 07/11/19 23:45 92 H 22 96 07/11/19 23:29 36.9 C 93 H 20 133/79 91 07/11/19 23:28 90 16 133/79 93 Laboratory Results Laboratory Results WBC 8.22 K/uL (4.8-10.8) 07/11/19 23:00 RBC 4.71 M/uL (4.2-5.4) 07/11/19 23:00 Hgb 13.4 g/dL (12.0-16.0) 07/11/19 23:00 Hct 40.5 % (37-47) 07/11/19 23:00 MCV 86.0 fL (80-100) 07/11/19 23:00 MCH 28.5 pg (25-34) 07/11/19 23:00 MCHC 33.1 g/dL (32-36) 07/11/19 23:00 RDW Std Deviation 46.2 fL (36.4-46.3) 07/11/19 23:00 RDW Coeff of Pricilla 14.6 % (11.5-14.5) H 07/11/19 23:00 Plt Count 307 K/uL (130-400) 07/11/19 23:00 MPV 10.9 fL (7.4-10.4) H 07/11/19 23:00 Immature Gran % (Auto) 0.2 % 07/11/19 23:00 Neut % (Auto) 47.3 % 07/11/19 23:00 Lymph % (Auto) 43.6 % 07/11/19 23:00 [place] % (Auto) 8.8 % 07/11/19 23:00 Eos % (Auto) 0.0 % 07/11/19 23:00 Baso % (Auto) 0.1 % 07/11/19 23:00 Immature Gran # (Auto) 0.02 K/uL (0.00-0.02) 07/11/19 23:00 Neut # (Auto) 3.89 K/uL (1.4-6.5) 07/11/19 23:00 Lymph # (Auto) 3.58 K/uL (1.2-3.4) H 07/11/19 23:00 [place] # (Auto) 0.72 K/uL (0.11-0.59) H 07/11/19 23:00 Eos # (Auto) 0.00 K/uL (0-0.5) 07/11/19 23:00 Baso # (Auto) 0.01 K/uL (0-0.2) 07/11/19 23:00 D-Dimer 790 ug/L FEU (0-500) H* 07/12/19 01:44 Sodium 141 mmol/L (136-145) 07/11/19 23:00 Potassium 3.1 mmol/L (3.5-5.1) L 07/11/19 23:00 Chloride 104 mmol/L (98-107) 07/11/19 23:00 Carbon Dioxide 31 mmol/L (21-32) 07/11/19 23:00 Anion Gap 6.0 (3-11) 07/11/19 23:00 BUN 16 mg/dl (7-18) 07/11/19 23:00 Creatinine 1.01 mg/dl (0.6-1.2) 07/11/19 23:00 Est Cr Clr Drug Dosing Not Reportable 07/11/19 23:00 Est GFR ( Amer) 69.1 07/11/19 23:00 Est GFR (Non-Af Amer) 59.6 07/11/19 23:00 BUN/Creatinine Ratio 16.0 (10-20) 07/11/19 23:00 Glucose 126 mg/dl (70-99) H 07/11/19 23:00 Calcium 8.8 mg/dl (8.5-10.1) 07/11/19:00 Total Bilirubin 0.5 mg/dl (0.2-1) 07/11/19 23:00 AST 29 U/L (15-37) 07/11/19 23:00 ALT 26 U/L (12-78) 07/11/19 23:00 Alkaline Phosphatase 146 U/L (45-117) H 07/11/19 23:00 Troponin I < 0.015 ng/ml (0-0.045) 07/11/19 23:00 Total Protein 7.4 gm/dl (6.4-8.2) 07/11/19 23:00 Albumin 3.6 gm/dl (3.4-5.0) 07/11/19 23:00 Globulin 3.8 gm/dl (2.5-4.0) 07/11/19 23:00 Albumin/Globulin Ratio 0.9 (0.9-2) 07/11/19 23:00 Lipase 197 U/L (73-393) 07/11/19 23:00 Diagnostic Findings Chest CTA prelim report shows NO PE or aortic dissection. Code Status & VTE Plan VTE Prophylaxis Plan VTE Prophylaxis will be ordered: Yes PG Care Time/CCT Total # of Minutes Spent Total Time Spent: 60 Total Time Spent with Patient: Total time spent is greater than 50% in coordination of care (as documented) at patient's floor/unit and/or counseling patient: (1) DM w/o complication type II, uncontrolled Glycemic state: with hyperglycemia Qualified Code(s): E11.65 - Type 2 diabetes mellitus with hyperglycemia (2) GERD (gastroesophageal reflux disease) Esophagitis presence: esophagitis presence not specified Qualified Code(s): K21.9 - Gastro-esophageal reflux disease without esophagitis
[2019-07-12 02:05] LABS: D Dimer 790 ug/L FEU (0-500)
[2019-07-12] MEDS ORDERED: ONDANSETRON INJ 2 MG/ML 2 ML VIAL ONE (02:06)
[2019-07-12] MEDS ORDERED: GLUCAGON FOR INJ 1 MG VIAL SQ PRN (02:34)
[2019-07-12] MEDS ORDERED: MoRPHine SULFATE 4 MG/ML 1 ML CARP\\VIAL IV PRN (02:34)
[2019-07-12] MEDS ORDERED: CARBOHYDRATES FOR HYPOGLYCEMIA PO PRN (02:34)
[2019-07-12] MEDS ORDERED: MoRPHine SULFATE 2 MG/ML CARP IV PRN (02:34)
[2019-07-12] MEDS ORDERED: GLUCOSE 10 TABS/TUBE PO PRN (02:34)
[2019-07-12] MEDS ORDERED: ONDANSETRON INJ 2 MG/ML 2 ML VIAL IV PRN (02:34)
[2019-07-12] MEDS ORDERED: GLUCOSE 40% GEL 15 GM TUBE PO PRN (02:34)
[2019-07-12] MEDS ORDERED: NITROGLYCERIN SL 0.4 MG/TAB TAB SL PRN (02:34)
[2019-07-12] MEDS ORDERED: LEVALBUTEROL HCL 1.25 MG/3 ML NEB NEB PRN (02:34)
[2019-07-12] MEDS ORDERED: DEXTROSE 50% 50 ML SYRINGE IV PRN (02:34)
[2019-07-12] MEDS ORDERED: ACETAMINOPHEN 325 MG TAB PO PRN (02:34)
[2019-07-12] MEDS ORDERED: OPTIRAY 320 125ml IV PRN (03:07)
--- NOTE | 2019-07-12 05:40 | Emergency Department Note ---
Entered by Zuhair Frederick acting as a scribe for History of Present Illness General Chief complaint: Chest Pain Stated complaint: CHEST PAIN Time Seen by Provider: 07/11/19 23:37 Source: patient History of Present Illness Provider complaint: chest pain Onset (ago): hour(s) less than 1 Location: chest Radiation: non-radiation Pain Consistency: + constant Maximum Pain Intensity: 7 Current Pain Intensity: 6 Quality: + stabbing and + sharp Relieved By: + other (nitroglycerin ) Exacerbated By: + none Associated symptoms: + denies other symptoms; no shortness of breath Treatments prior to arrival: other (nitroglycerin ) The patient is a 64 y/o female who presents to the emergency department for evaluation of constant sharp chest pain that began prior to arrival. The patient states that she was getting ready for bed when she began having stabbing chest pain that became worse and worse. She reports that as the pain progressed she also became sweaty, had indigestion with burping and felt like she was going to throw up. The patient notes that she had nitroglycerin in the ambulance on the way to the ED which helped bring the pain down to a dull ache. She reports that she has not had an episode like this before and reports that she does not regularly get indigestion. The patient states that she started a new mediation for IBS tonight called Viberzi, with this evening being her first dose. The patient denies shortness of breath, abdominal pain, and any other symptoms. Home Medications Home Medications Medication Instructions Recorded Confirmed Type budesonide 2 ml INHALATION BID #120 ml 10/19/18 07/12/19 Rx epinephrine 0.3 mg/0.3 mL 0.3 ml IM .COMPLEX ea 12/18/18 07/12/19 History injection, auto-injector ipratropium bromide 0.02 % 0.5 mg INHALATION QID PRN #2.5 ml 01/16/19 07/12/19 Rx solution for inhalation benzonatate 200 mg capsule 200 mg PO TID PRN 01/26/19 07/12/19 History prednisone 10 mg tablets in a dose 10 mg PO UD PRN ea 01/26/19 07/12/19 History pack levalbuterol HCl 1.25 mg INHALATION UD PRN 02/10/19 07/12/19 History metformin 500 mg tablet,extended 500 mg PO BID #60 tab 02/13/19 07/12/19 Rx release 24 hr cyclobenzaprine 5 mg tablet 5 mg PO TID PRN #10 tab 03/09/19 07/12/19 Rx walker #1 ea 03/09/19 07/12/19 Rx carvedilol 3.125 mg tablet 3.125 mg PO BID #180 tab 03/28/19 07/12/19 Rx furosemide 40 mg tablet 40 mg PO BID #180 tab 04/11/19 07/12/19 Rx potassium chloride 20 mEq See Rx Instructions .ROUTE 05/07/19 07/12/19 Rx tablet,extended release(part/cryst) .COMPLEX #210 tab alprazolam 0.25 mg tablet 0.25 mg PO BID PRN #30 tab 05/08/19 07/12/19 Rx atorvastatin 20 mg PO QAM 06/04/19 07/12/19 History cholecalciferol (vitamin D3) 4,000 units PO QAM 06/04/19 07/12/19 History famotidine 40 mg PO QAM 06/04/19 07/12/19 History ferrous sulfate 325 mg PO HS 06/04/19 07/12/19 History pantoprazole 40 mg/kg PO QAM 06/04/19 07/12/19 History losartan 25 mg tablet 25 mg PO QAM #90 tab 06/05/19 07/12/19 Rx azelastine 137 mcg (0.1 %) nasal See Rx Instructions .ROUTE 06/18/19 07/12/19 Rx spray aerosol .COMPLEX #30 spray benralizumab 30 mg/mL subcutaneous 30 mg SQ .COMPLEX #1 ml 07/05/19 07/12/19 Rx auto-injector sertraline 50 mg tablet 50 mg PO QAM #90 tab 07/11/19 07/12/19 Rx Allergies Allergy/AdvReac Type Severity Reaction Status Date / Time formoterol Allergy Severe tongue Verified 07/11/19 15:47 swells mometasone furoate Allergy Severe tongue Verified 07/11/19 15:47 swells ketorolac Allergy Intermediate ITCHING Verified 07/11/19 15:47 adhesive tape Allergy Mild Redness of Verified 07/11/19 15:47 Skin Past Med/Surg History Medical History Anxiety and depression Asthma (Chronic) Chronic diastolic CHF (congestive heart failure) DM w/o complication type II, uncontrolled Eosinophilic asthma GERD (gastroesophageal reflux disease) HTN (hypertension), benign EPHRAIM on CPAP Oxygen dependent PRN DAYTIME 4L/MIN NC/HS ALWAYS WITH CPAP HS-F/U DR TAN Thyroid nodule Surgical History History of bladder surgery laparoscopic sling operation for stress incontinence History of cardiac cath 4-5 YRS AGO-NO STENTS NEEDED-[facility] History of colonoscopy History of esophagogastroduodenoscopy (EGD) Nausea and vomiting after administration of anesthetic agent S/P appendectomy S/P cholecystectomy S/P right knee surgery S/P sinus surgery S/P tonsillectomy S/P total abdominal hysterectomy and bilateral salpingo-oophorectomy secondary to abnormal pap smear, age 30 Family History Sister Family history of emphysema Family history of reaction to anesthesia Father Prostate cancer Lung cancer Son Pneumonia @ age 31 Mother Ovarian cancer Family history of reaction to anesthesia PONV Sister Family history of reaction to anesthesia Other No pertinent family history Social History Preferred Language: Irish Communication Ability: Effective Visual Impairment: No Limitations Hearing Ability: Normal 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 Beliefs That Will Affect Care: None marital status: Current Living Situation: Spouse current occupational status: employed current occupation: [place] Other Information That Helps Us Care for You: No other: of son at age 31; d/t Flu/ PNA infection Feels Safe at Home: Yes Smoking Status: Never smoker Tobacco Type: smokeless tobacco ; Do You Dip or Chew Tobacco: No ; Second Hand Exposure: No ; Hx Alcohol Use: No Hx Substance Use: No Childhood Exposure to Second-Hand Smoke: Yes Other Diet Comment: regular caffeine: Yes (coffee) during the past year weight has: other Dental Care, Regularly: Yes Physical Activity Frequency: Does not Exercise Seatbelt Use: always Sunscreen Use: Yes Review of Systems See HPI for pertinent positives & negatives. and A total of 10 systems reviewed and were otherwise negative Physical Exam Vital Signs Vital Signs - 24 hr 07/11/19 23:28 07/11/19 23:29 07/11/19 23:45 Temperature 36.9 C Temperature Source Oral Pulse Rate 90 93 H 92 H Pulse Rate from SpO2 Sensor 90 92 H Respiratory Rate 16 20 22 Respiratory Effort / Characteristics Non-Labored Spontaneous Respiratory Depth Normal Respiratory Pattern Regular Blood Pressure 133/79 133/79 Blood Pressure Mean 98 97 Blood Pressure Position Sitting Pulse Oximetry 93 91 96 Oxygen Delivery Method Nasal Cannula Room Air Oxygen Flow Rate 2 Sepsis Recent Fever Within 48 Hours No Sepsis New/Unexplained Change in Mental Status No Sepsis Action Taken by Nursing No Action Required 07/11/19 23:53 07/12/19 00:00 07/12/19 00:02 Temperature Temperature Source Pulse Rate 82 86 Pulse Rate from SpO2 Sensor 84 87 Respiratory Rate 15 25 H Respiratory Effort / Characteristics Respiratory Depth Respiratory Pattern Blood Pressure 133/77 Blood Pressure Mean 96 Blood Pressure Position Pulse Oximetry 95 96 97 Oxygen Delivery Method Nasal Cannula Nasal Cannula Oxygen Flow Rate 2 2 Sepsis Recent Fever Within 48 Hours Sepsis New/Unexplained Change in Mental Status Sepsis Action Taken by Nursing 07/12/19 00:15 07/12/19 00:30 07/12/19 01:00 Temperature Temperature Source Pulse Rate 84 80 77 Pulse Rate from SpO2 Sensor 84 80 77 Respiratory Rate 22 14 14 Respiratory Effort / Characteristics Respiratory Depth Respiratory Pattern Blood Pressure 133/77 106/68 117/71 Blood Pressure Mean 85 77 81 Blood Pressure Position Pulse Oximetry 95 93 95 Oxygen Delivery Method Nasal Cannula Nasal Cannula Nasal Cannula Oxygen Flow Rate 2 2 2 Sepsis Recent Fever Within 48 Hours Sepsis New/Unexplained Change in Mental Status Sepsis Action Taken by Nursing 07/12/19 01:30 Temperature Temperature Source Pulse Rate 76 Pulse Rate from SpO2 Sensor 78 Respiratory Rate 18 Respiratory Effort / Characteristics Respiratory Depth Respiratory Pattern Blood Pressure 112/76 Blood Pressure Mean 83 Blood Pressure Position Pulse Oximetry 95 Oxygen Delivery Method Nasal Cannula Oxygen Flow Rate 2 Sepsis Recent Fever Within 48 Hours Sepsis New/Unexplained Change in Mental Status Sepsis Action Taken by Nursing HEENT: Head - normocephalic and atraumatic Pupils are equal, round, and reactive to light. Extraocular eye muscles are intact, and sclera are anicteric. Nose - moist nasal mucosa without discharge. Mouth - moist buccal mucosa. Oropharynx is nonerythematous and there is no tonsillar exudate or edema noted. Neck: Supple; no thyromegaly or auscultated bruits Heart: Regular rate and rhythm. There is a normal S1 and S2 with no murmurs, clicks, or gallops appreciated. Lungs: Breath sound diminished across all lung kulkarni with no wheezes, rales, or rhonchi. Abdomen: Soft, completely nontender, nondistended, with good bowel sounds. There are no palpable pulsatile masses or hepatosplenomegaly. There is no guarding, rigidity, or rebound noted. Extremities: No evidence of cyanosis, clubbing, or edema. There are easily palpable peripheral pulses. Skin: warm and dry with good turgor and no rashes. Course Course 2339: Past medical records reviewed. The patient was evaluated in room C04. A complete history and physical exam was performed. An order was placed for continuous cardiac monitoring. The patient was in a normal sinus rhythm in the 60s. A twelve-lead EKG was obtained. 2352: I ordered fentanyl citrate 50 mcg IV. A portable chest x-ray was performed. 0011: I ordered nitroglycerin [id number] 0017: Patient continued to complain of chest discomfort and I ordered fentanyl citrate 50 mcg IV 0052: I checked on the patient. She reports her chest pain has currently res olved. We discussed admission and she is agreeable. 0119: I spoke with [facility]. He will evaluate for further management. Administered Medications Ioversol (Optiray 320 125ml) 125 ml IV ONCE PRN PRN Reason: Interaction Checking Stop: 07/16/19 03:06 Last Admin: 07/12/19 03:07 Dose: 117 ml Documented by: [id number] Discontinued Medications Fentanyl Citrate (Fentanyl Citrate) 50 mcg IV NOW STA Stop: 07/11/19 23:53 Last Admin: 07/12/19 00:00 Dose: 50 mcg Documented by: [id number] Fentanyl Citrate (Fentanyl Citrate) 50 mcg IV NOW STA Stop: 07/12/19 00:18 Last Admin: 07/12/19 00:23 Dose: 50 mcg Documented by: [id number] Potassium Chloride (K Samson / Wtr) 10 meq in 100 mls @ 100 mls/hr IV Q1H STA Stop: 07/12/19 02:43 Last Infusion: 07/12/19 04:04 Dose: 0 mls/hr Documented by: [id number] Infusion: 07/12/19 02:20 Dose: 50 mls/hr Documented by: [id number] Admin: 07/12/19 01:53 Dose: 100 mls/hr Documented by: [id number] Potassium Chloride (K Samson / Wtr) 10 meq in 100 mls @ 100 mls/hr IV Q1H STA Stop: 07/12/19 04:59 Last Admin: 07/12/19 04:15 Dose: 50 mls/hr Documented by: [id number] Nitroglycerin (Nitro-Bid 2%) Confirm Administered Dose 18 inch .ROUTE .STK-MED ONE Stop: 07/11/19 23:58 Last Admin: 07/12/19 00:00 Dose: 0.5 inch Documented by: [id number] Nitroglycerin (Nitro-Bid 2%) 0.5 inch EXT NOW ONE Stop: 07/12/19 00:12 Last Admin: 07/12/19 00:15 Dose: Not Given Documented by: [id number] Ondansetron HCl (Zofran) Confirm Administered Dose 4 mg .ROUTE .STK-MED ONE Stop: 07/12/19 02:07 Last Admin: 07/12/19 02:07 Dose: 4 mg Documented by: [id number] Medical Decision Making Differential Diagnosis Differential diagnosis: aortic dissection, STEMI, GERD, ACS. Medical Records Attestation: I reviewed the patient's medical records. Home Medications Current Medication List: was personally reviewed by me Laboratory Data Attestation: I reviewed the patient's lab results. Result diagrams: 07/11/19 23:00 07/11/19 23:00 Lab Results 07/11/19 07/11/19 Range/Units 23:00 23:00 WBC 8.22 (4.8-10.8) K/uL RBC 4.71 (4.2-5.4) M/uL Hgb 13.4 (12.0-16.0) g/dL Hct 40.5 (37-47) % MCV 86.0 (80-100) fL MCH 28.5 (25-34) pg MCHC 33.1 (32-36) g/dL RDW Std Deviation 46.2 (36.4-46.3) fL RDW Coeff of Pricilla 14.6 H (11.5-14.5) % Plt Count 307 (130-400) K/uL MPV 10.9 H (7.4-10.4) fL Immature Gran % (Auto) 0.2 % Neut % (Auto) 47.3 % Lymph % (Auto) 43.6 % Whitfield % (Auto) 8.8 % Eos % (Auto) 0.0 % Baso % (Auto) 0.1 % Immature Gran # (Auto) 0.02 (0.00-0.02) K/uL Neut # (Auto) 3.89 (1.4-6.5) K/uL Lymph # (Auto) 3.58 H (1.2-3.4) K/uL Whitfield # (Auto) 0.72 H (0.11-0.59) K/uL Eos # (Auto) 0.00 (0-0.5) K/uL Baso # (Auto) 0.01 (0-0.2) K/uL Sodium 141 (136-145) mmol/L Potassium 3.1 L (3.5-5.1) mmol/L Chloride 104 (98-107) mmol/L Carbon Dioxide 31 (21-32) mmol/L Anion Gap 6.0 (3-11) BUN 16 (7-18) mg/dl Creatinine 1.01 (0.6-1.2) mg/dl Est Cr Clr Drug Dosing Not Reportable Est GFR ( Amer) 69.1 Est GFR (Non-Af Amer) 59.6 BUN/Creatinine Ratio 16.0 (10-20) Glucose 126 H (70-99) mg/dl Calcium 8.8 (8.5-10.1) mg/dl Total Bilirubin 0.5 (0.2-1) mg/dl AST 29 (15-37) U/L ALT 26 (12-78) U/L Alkaline Phosphatase 146 H (45-117) U/L Troponin I < 0.015 (0-0.045) ng/ml Total Protein 7.4 (6.4-8.2) gm/dl Albumin 3.6 (3.4-5.0) gm/dl Globulin 3.8 (2.5-4.0) gm/dl Albumin/Globulin Ratio 0.9 (0.9-2) Lipase 197 (73-393) U/L Imaging Data Attestation: I personally reviewed and interpreted this imaging study as follows: My Impression: Chest x-ray showed no cardiomegaly, narrow mediastinum, and no pulmonary consolidation. ECG Data Attestation: I personally reviewed and interpreted this ECG as follows: Indication: + chest pain Rate (beats per minute): 90 Rhythm: + normal sinus ECG ST segments: no ST depression and no ST elevation ECG Findings: + PVCs Comparison ECG Date: from (01/10/19) Change: no significant change Additional Comments: Repeat EKG at 23:48 with 6/10 chest pain Normal sinus Rate [address] elevation or depression No PVCs or PACs Blood Pressure Blood Pressure Findings: Normal blood pressure MDM Narrative The patient is a 64 y/o female who presents to the emergency department for evaluation of constant sharp chest pain that began prior to arrival. The patient has a chronic history of asthma but had no associated shortness of breath with this episode. She has never had chest pain like this in the past. Twelve-lead EKG was unremarkable and there were no signs of a STEMI. Patient did get relief of her discomfort with the nitroglycerin. She had received aspirin prehospitally. EKG was unchanged here in the emergency department. She had a negative troponin. However, the patient has multiple risk factors for coronary artery disease. The case [facility] and they will evaluate for further management. Impression & Plan Substernal chest pain Discharge Plan Visit Data *Final* Discharge Date/Time: 07/12/19 02:01 Chief Complaint: Chest Pain Stated Complaint: CHEST PAIN ED Provider: Nimo Mauro Discharge Problem: Substernal chest pain Patient Disposition: Admitted As Inpatient Discharge Instructions Interventions: ED Discharge Assessment Last Done: 07/12/19 02:01 The scribe's documentation has been prepared under my direction and personally reviewed by me in its entirety. I confirm that the note above accurately reflects all work, treatment, procedures, and medical decision making performed by me.
--- NOTE | 2019-07-12 06:47 | XRay Report ---
XR chest 1V portable CLINICAL HISTORY: Atypical chest pain COMPARISON STUDY: 02/10/2019 FINDINGS: The cardiac and mediastinal contours are normal. There is no evidence of focal pulmonary co nsolidation. There is no evidence of failure. No pleural effusions are visualized.[There is minor lef t basilar atelectasis/scarring IMPRESSION: No active disease in the chest. ACT 112: Negative or not required by law. Electronically signed by: Mukesh Lance M.D. 07/12/2019 6:46 AM
[2019-07-12] MEDS ORDERED: BUDESONIDE 0.5 MG/2 ML VIAL (PULMICORT) INH SCH (07:00)
[2019-07-12 07:12] LABS: Estimated Average Glucose 131 mg/dl; Hemoglobin A1C 6.2 % (4.5-5.6)
[2019-07-12 07:34] LABS: Blood Urea Nitrogen 15 mg/dl (7-18); Calcium 8.6 mg/dl (8.5-10.1); Carbon Dioxide 29 mmol/L (21-32); Chloride 107 mmol/L (98-107); Creatinine Clr Calc Pharmacy 86.3 ml/min; Est GFR (African American) 83.9; Est GFR (Non-African American) 72.4; Glucose 101 mg/dl (70-99); Sodium 141 mmol/L (136-145)
--- NOTE | 2019-07-12 07:37 | CT Scan Report ---
CT ANGIOGRAM OF THE CHEST CLINICAL HISTORY: Atypical chest pain. COMPARISON STUDY: Chest x-ray dated 07/11/2019. Chest CT scans dated 08/02/2018 and 12/17/2016. TECHNIQUE: Following the IV administration of 117 cc of Optiray 320, CT angiogram of the chest was pe rformed from the upper abdomen to the thoracic inlet utilizing the pulmonary embolus protocol. Images are reviewed in the axial, sagittal, and coronal planes. 3-D MIPS images are created and assessed. I V contrast was administered without complication. A dose lowering technique was utilized adhering to the principles of ALARA. CT DOSE: 765.48 mGy.cm FINDINGS: Thyroid: Imaged portions of the thyroid gland are normal in size and heterogeneous in attenuation. Thoracic aorta: The thoracic aorta is normal in caliber and demonstrates standard 3-vessel arch anato my. No dissection is seen. Pulmonary vasculature: The pulmonary trunk is normal in caliber. There are no filling defects identif ied in main, lobar, or segmental pulmonary branches to suggest pulmonary embolus. Heart: The heart is normal in size and without pericardial effusion. Lungs and pleural spaces: There is no airspace consolidation or pleural effusion. Scarring/atelectasi s is noted at the lung bases. There is mild diffuse peribronchial thickening. The trachea and central airways are clear. A 5 mm pleural-based nodule in the right lower lobe is seen on image #181. This i s unchanged from 2017 and of doubtful significance. Mediastinum: There is no mediastinal lymphadenopathy. Akua: Clear. Axillae: There is no axillary lymphadenopathy. Upper abdomen: Cholecystectomy clips are noted. A 2.3 cm cyst arises from the upper pole of the left kidney. There is a small hiatal hernia. Skeletal structures: The skeletal structures are osteopenic. No lytic or blastic bony lesions are see n. IMPRESSION: 1. There is no evidence of pulmonary embolus in the main, lobar, or segmental pulmonary arteries. 2. There is no airspace consolidation or pleural effusion. 3. Mild diffuse peribronchial thickening suggests bronchitis/reactive air disease. Clinical correlati on will be required. ACT 112: Negative or not required by law. Electronically signed by: Guero Singh M.D. 07/12/2019 7:36 AM
[2019-07-12 07:40] LABS: Troponin I < 0.015 ng/ml (0-0.045)
[2019-07-12] MEDS ORDERED: ENOXAPARIN INJ 40 MG/0.4 ML SYR SQ SCH (08:00)
[2019-07-12] MEDS ORDERED: AZELASTINE~ORDER AWAITING ACTION SCH (08:00)
[2019-07-12] MEDS: INSULIN ASPART 100 UNITS/ML 3 ML PEN SC SCH ×2 (08:32→12:57)
[2019-07-12] MEDS ORDERED: carvediloL 3.125 MG TAB PO SCH (09:00)
[2019-07-12] MEDS ORDERED: SERTRALINE HCL 50 MG TABLET PO SCH (09:00)
[2019-07-12] MEDS ORDERED: CHOLECALCIFEROL 1,000 UNITS 25 MCG TAB PO SCH (09:00)
[2019-07-12] MEDS ORDERED: FUROSEMIDE 40 MG TAB PO SCH (09:00)
[2019-07-12] MEDS ORDERED: FAMOTIDINE 40 MG TABLET PO SCH (09:00)
[2019-07-12] MEDS ORDERED: ATORVASTATIN 20 MG TAB PO SCH (09:00)
[2019-07-12] MEDS ORDERED: LOSARTAN POTASSIUM 25 MG TAB PO SCH (09:00)
[2019-07-12] MEDS ORDERED: PANTOprazole 40 MG TAB PO SCH (09:00)
--- NOTE | 2019-07-12 10:05 | Cardiology Consultation ---
Date of Consultation July 12, 2019 Assessment & Plan (1) Substernal chest pain: (2) HTN (hypertension), benign: (3) Irritable bowel syndrome with diarrhea: (4) DM w/o complication type II, uncontrolled: The patient presented last evening with severe stabbing substernal chest pain that radiated into her back. She had associated nausea, diaphoresis, and some shortness of breath with the discomfort. The episode lasted about 2-2.5 hours in duration. Symptoms resolved with nitro and pain medication. Her cardiac enzymes have been negative, and ECGs show no acute ischemic changes. She reportedly had a normal cardiac catheterization in 2015 and also underwent a dobutamine stress echo in December 2018 that was negative for ischemia. Given her previously negative ischemic evaluation and normal cardiac work-up this admission, her symptoms do not appear to be cardiac in nature. No additional cardiovascular testing/intervention recommended at this time. Interestingly, she did start a new medication last evening called Viberzi for treatment of her IBS, and perhaps her symptoms last evening were related to the new med. Would have her refrain from taking the medication at this time, and perhaps she can be started on a different agent for her IBS. Patient discussed with Dr. Phillips. ADDENDUM (Dr. Phillips): Patient seen, interviewed, and examined. Agree with above assessment and plan as outlined by Brittany Lin PA-C. 64-year-old woman with normal cardiac catheterization 4 years ago and negative dobutamine stress echo 6 months ago who presented with severe sharp epigastric/lower anterior thoracic symptoms but no ischemic ECG changes or troponin elevation. Given the magnitude of her symptoms, would certainly expect ECG changes and/or enzyme elevation if the etiology was cardiac ischemia. At this point, no evidence for cardiac etiology or ongoing myocardial ischemia. Would evaluate for noncardiac cause, high on the list would be gastrointestinal irritation from her newly initiated Viberzi given the strong temporal relationship between taking her first pill and several hours later developing symptoms. Advised her to hold this medication and discuss with GI specialist possible alternative medication regimens. Given the lack of cardiac issues, will sign off. Please recontact if further symptoms or concerns. History of Present Illness Reason for Consultation: Chest pain Requesting Physician: Dr. Kan History of Present Illness Mrs. Carreon is a 64-year-old female with a past medical history significant for resolved non-ischemic cardiomyopathy, hypertension, dyslipidemia, type 2 diabetes mellitus, EPHRAIM (on CPAP and supplemental O2), eosinophilic asthma, anxiety/depression, GERD, and IBS who was admitted last evening in the setting of chest pain. The patient reports a history of a non-ischemic cardiomyopathy. She states that she was evaluated by Dr. Gastelum in 2016 for the cardiomyopathy and was initiated on beta lulu and ARB at that time. She also underwent a cardiac catheterization at [facility], which was reportedly normal. The report from this study is not currently available, though. Her EF has since normalized. She reports that she was in her usual state of health until last evening. She went to bed around 9:30 pm, and after about 10 mins of lying in bed developed stabbing substernal chest pain that radiated into her back. She had associated nausea and diaphoresis with the discomfort. She also reports some associated shortness of breath, although she believes she may have been hyperventilating due to the severity of the pain. After about an hour of the discomfort, she and her decided to call 911. EMS arrived and gave her 2 nitro sprays en route to the hospital. She states that she did note some improvement with the second nitro, but her discomfort worsened again in the ED. She was given nitro patch in the ED as well as pain medication. With these measures, the discomfort resolved. She estimates that the discomfort lasted about 2-2.5 hours in duration. Of note, she was seen by her Nuclear Equipment Operator yesterday and was initiated on Viberzi for her IBS. Last evening was her first dose of the medication. Otherwise, the patient reports chronic dyspnea with exertion with activities such as ambulating up stairs or walking longer distances. She denies any lower extremity edema. She states that she can feel her heart racing with over exertion, but she denies any other palpitations. She denies syncope or presyncope. She denies abnormal bleeding such as melena, hematochezia, or hematuria. She denies cerebrovascular symptoms. Review of systems: As noted in HPI. All other 10 point ROS are reviewed and otherwise negative. Family history: No family history of premature CAD. Social history: She is . No smoking, alcohol, or illicit drug use. Allergies Allergy/AdvReac Type Severity Reaction Status Date / Time formoterol Allergy Severe tongue Verified 07/11/19 15:47 swells mometasone furoate Allergy Severe tongue Verified 07/11/19 15:47 swells ketorolac Allergy Intermediate ITCHING Verified 07/11/19 15:47 adhesive tape Allergy Mild Redness of Verified 07/11/19 15:47 Skin Home Medications Home Medications Medication Instructions Recorded Confirmed Type budesonide 2 ml INHALATION BID #120 ml 10/19/18 07/12/19 Rx epinephrine 0.3 mg/0.3 mL 0.3 ml IM .COMPLEX ea 12/18/18 07/12/19 History injection, auto-injector ipratropium bromide 0.02 % 0.5 mg INHALATION QID PRN #2.5 ml 01/16/19 07/12/19 Rx solution for inhalation benzonatate 200 mg capsule 200 mg PO TID PRN 01/26/19 07/12/19 History prednisone 10 mg tablets in a dose 10 mg PO UD PRN ea 01/26/19 07/12/19 History pack levalbuterol HCl 1.25 mg INHALATION UD PRN 02/10/19 07/12/19 History metformin 500 mg tablet,extended 500 mg PO BID #60 tab 02/13/19 07/12/19 Rx release 24 hr cyclobenzaprine 5 mg tablet 5 mg PO TID PRN #10 tab 03/09/19 07/12/19 Rx walker #1 ea 03/09/19 07/12/19 Rx carvedilol 3.125 mg tablet 3.125 mg PO BID #180 tab 03/28/19 07/12/19 Rx furosemide 40 mg tablet 40 mg PO BID #180 tab 04/11/19 07/12/19 Rx potassium chloride 20 mEq See Rx Instructions .ROUTE 05/07/19 07/12/19 Rx tablet,extended release(part/cryst) .COMPLEX #210 tab alprazolam 0.25 mg tablet 0.25 mg PO BID PRN #30 tab 05/08/19 07/12/19 Rx atorvastatin 20 mg PO QAM 06/04/19 07/12/19 History cholecalciferol (vitamin D3) 4,000 units PO QAM 06/04/19 07/12/19 History famotidine 40 mg PO QAM 06/04/19 07/12/19 History ferrous sulfate 325 mg PO HS 06/04/19 07/12/19 History pantoprazole 40 mg/kg PO QAM 06/04/19 07/12/19 History losartan 25 mg tablet 25 mg PO QAM #90 tab 06/05/19 07/12/19 Rx azelastine 137 mcg (0.1 %) nasal See Rx Instructions .ROUTE 06/18/19 07/12/19 Rx spray aerosol .COMPLEX #30 spray benralizumab 30 mg/mL subcutaneous 30 mg SQ .COMPLEX #1 ml 07/05/19 07/12/19 Rx auto-injector sertraline 50 mg tablet 50 mg PO QAM #90 tab 07/11/19 07/12/19 Rx Patient History Medical History Anxiety and depression Asthma (Chronic) Chronic diastolic CHF (congestive heart failure) DM w/o complication type II, uncontrolled Eosinophilic asthma GERD (gastroesophageal reflux disease) HTN (hypertension), benign EPHRAIM on CPAP Oxygen dependent PRN DAYTIME 4L/MIN NC/HS ALWAYS WITH CPAP HS-F/U DR TAN Thyroid nodule Surgical History History of bladder surgery laparoscopic sling operation for stress incontinence History of cardiac cath 4-5 YRS AGO-NO STENTS NEEDED-[facility] History of colonoscopy History of esophagogastroduodenoscopy (EGD) Nausea and vomiting after administration of anesthetic agent S/P appendectomy S/P cholecystectomy S/P right knee surgery S/P sinus surgery S/P tonsillectomy S/P total abdominal hysterectomy and bilateral salpingo-oophorectomy secondary to abnormal pap smear, age 30 Family History Sister Family history of emphysema Family history of reaction to anesthesia Father Prostate cancer Lung cancer Son Pneumonia @ age 31 Mother Ovarian cancer Family history of reaction to anesthesia PONV Sister Family history of reaction to anesthesia Other No pertinent family history Social History Preferred Language: Azeri Communication Ability: Effective Visual Impairment: No Limitations Hearing Ability: Normal Long Chain Quiller Tender Required: No Beliefs That Will Affect Care: None marital status: Current Living Situation: Spouse current occupational status: employed 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 Other Information That Helps Us Care for You: No other: of son at age 31; d/t Flu/ PNA infection Feels Safe at Home: Yes Smoking Status: Never smoker Tobacco Type: smokeless tobacco ; Do You Dip or Chew Tobacco: No ; Second Hand Exposure: No ; Hx Alcohol Use: No Hx Substance Use: No Childhood Exposure to Second-Hand Smoke: Yes Other Diet Comment: regular caffeine: Yes (coffee) during the past year weight has: other Dental Care, Regularly: Yes Physical Activity Frequency: Does not Exercise Seatbelt Use: always Sunscreen Use: Yes Physical Exam Physical Exam: Constitutional: Alert, oriented, in no acute distress HEENT: Head is atraumatic and normocephalic. EOMs intact. Sclera non-icteric. Face is symmetric. No perioral cyanosis. Mucous membranes moist Neck: Supple, no JVD, no carotid bruits Pulmonary: Normal respiratory effort, clear to auscultation throughout Cardiac: Regular rate and rhythm, normal S1 and S2, no gallops, no rubs, no murmurs Extremities: No edema. No clubbing or cyanosis. Pulses 2+ and symmetric Abdomen: Normal bowel sounds, soft, non-tender, no abdominal masses palpated Skin: Normal skin color, turgor, and pigmentation. No rash or skin lesions Neurological: Oriented to person, place, and time Results & Data Vital Signs (Past 12 Hours) Vital Signs Temp Pulse Pulse Resp BP BP Pulse Ox 07/12/19 07:32 67 07/12/19 07:18 97.2 F L 68 18 138/89 96 07/12/19 07:01 71 16 98 07/12/19 02:18 98.1 F 68 20 131/82 96 07/12/19 02:01 80 20 112/83 95 07/12/19 01:30 76 18 112/76 95 07/12/19 01:00 77 14 117/71 95 07/12/19 00:30 80 14 106/68 93 07/12/19 00:15 84 22 133/77 95 07/12/19 00:02 86 25 H 133/77 97 07/12/19 00:00 82 15 96 07/11/19 23:53 95 07/11/19 23:45 92 H 22 96 07/11/19 23:29 98.4 F 93 H 20 133/79 91 07/11/19 23:28 90 16 133/79 93 Laboratory Results Laboratory Results WBC 8.22 K/uL (4.8-10.8) 07/11/19 23:00 RBC 4.71 M/uL (4.2-5.4) 07/11/19 23:00 Hgb 13.4 g/dL (12.0-16.0) 07/11/19 23:00 Hct 40.5 % (37-47) 07/11/19 23:00 MCV 86.0 fL (80-100) 07/11/19 23:00 MCH 28.5 pg (25-34) 07/11/19 23:00 MCHC 33.1 g/dL (32-36) 07/11/19 23:00 RDW Std Deviation 46.2 fL (36.4-46.3) 07/11/19 23:00 RDW Coeff of Pricilla 14.6 % (11.5-14.5) H 07/11/19 23:00 Plt Count 307 K/uL (130-400) 07/11/19 23:00 MPV 10.9 fL (7.4-10.4) H 07/11/19 23:00 Immature Gran % (Auto) 0.2 % 07/11/19 23:00 Neut % (Auto) 47.3 % 07/11/19 23:00 Lymph % (Auto) 43.6 % 07/11/19 23:00 Jenkins % (Auto) 8.8 % 07/11/19 23:00 Eos % (Auto) 0.0 % 07/11/19 23:00 Baso % (Auto) 0.1 % 07/11/19 23:00 Immature Gran # (Auto) 0.02 K/uL (0.00-0.02) 07/11/19 23:00 Neut # (Auto) 3.89 K/uL (1.4-6.5) 07/11/19 23:00 Lymph # (Auto) 3.58 K/uL (1.2-3.4) H 07/11/19 23:00 Jenkins # (Auto) 0.72 K/uL (0.11-0.59) H 07/11/19 23:00 Eos # (Auto) 0.00 K/uL (0-0.5) 07/11/19 23:00 Baso # (Auto) 0.01 K/uL (0-0.2) 07/11/19 23:00 D-Dimer 790 ug/L FEU (0-500) H* 07/12/19 01:44 Sodium 141 mmol/L (136-145) 07/12/19 06:27 Potassium 4.0 mmol/L (3.5-5.1) D 07/12/19 06:27 Chloride 107 mmol/L (98-107) 07/12/19 06:27 Carbon Dioxide 29 mmol/L (21-32) 07/12/19 06:27 Anion Gap 5.0 (3-11) 07/12/19 06:27 BUN 15 mg/dl (7-18) 07/12/19 06:27 Creatinine 0.86 mg/dl (0.6-1.2) 07/12/19 06:27 Est Cr Clr Drug Dosing 86.3 ml/min 07/12/19 06:27 Est GFR ( Amer) 83.9 07/12/19 06:27 Est GFR (Non-Af Amer) 72.4 07/12/19 06:27 BUN/Creatinine Ratio 18.0 (10-20) 07/12/19 06:27 Glucose 101 mg/dl (70-99) H 07/12/19 06:27 POC Glucose 103 mg/dl (70-99) H 07/12/19 07:30 Estimat Average Glucose 131 mg/dl 07/12/19 06:27 Hemoglobin A1c 6.2 % (4.5-5.6) H 07/12/19 06:27 Calcium 8.6 mg/dl (8.5-10.1) 07/12/19 06:27 Total Bilirubin 0.5 mg/dl (0.2-1) 07/11/19 23:00 AST 29 U/L (15-37) 07/11/19 23:00 ALT 26 U/L (12-78) 07/11/19 23:00 Alkaline Phosphatase 146 U/L (45-117) H 07/11/19 23:00 Troponin I < 0.015 ng/ml (0-0.045) 07/12/19 06:27 Total Protein 7.4 gm/dl (6.4-8.2) 07/11/19 23:00 Albumin 3.6 gm/dl (3.4-5.0) 07/11/19 23:00 Globulin 3.8 gm/dl (2.5-4.0) 07/11/19 23:00 Albumin/Globulin Ratio 0.9 (0.9-2) 07/11/19 23:00 Lipase 197 U/L (73-393) 07/11/19 23:00 Diagnostic Findings CXR: No active disease in the chest. Chest CTA: 1. There is no evidence of pulmonary embolus in the main, lobar, or segmental pulmonary arteries. 2. There is no airspace consolidation or pleural effusion. 3. Mild diffuse peribronchial thickening suggests bronchitis/reactive air disease. Clinical correlation will be required. ECG 23:48: Normal sinus rhythm. ECG 23:52: Normal sinus rhythm with PVCs. Telemetry: Sinus in the 70s. Dobutamine stress echo 01/08/2019: Negative for ischemia at >100% MPHR. Baseline echo with normal LV systolic function. PG Care Time/CCT Total # of Minutes Spent Total Time Spent with Patient: Total time spent is greater than 50% in coordination of care (as documented) at patient's floor/unit and/or counseling patient: (1) DM w/o complication type II, uncontrolled Glycemic state: with hyperglycemia Qualified Code(s): E11.65 - Type 2 diabetes mellitus with hyperglycemia
--- NOTE | 2019-07-12 17:16 | Electrocardiogram Report ---
Test Reason : Blood Pressure : / mmHG Vent. Rate : 090 BPM Atrial Rate : 090 BPM P-R Int : 162 ms QRS Dur : 078 ms QT Int : 378 ms P-R-T Axes : 054 -22 005 degrees QTc Int : 462 ms Sinus rhythm with frequent Premature ventricular complexes Minimal voltage criteria for LVH, may be normal variant Borderline ECG When compared with ECG of 10-FEB-2019 21:42, Premature ventricular complexes are now Present Nonspecific T wave abnormality, improved in Anterior leads Confirmed by Brenton Tabares ([id number]) on 07/12/2019 5:16:29 PM Referred By: REFERRED SELF Confirmed By:Brenton Tabares
--- NOTE | 2019-07-12 17:17 | Electrocardiogram Report ---
Test Reason : Blood Pressure : / mmHG Vent. Rate : 083 BPM Atrial Rate : 083 BPM P-R Int : 166 ms QRS Dur : 078 ms QT Int : 394 ms P-R-T Axes : 047 -21 022 degrees QTc Int : 462 ms Normal sinus rhythm Normal ECG When compared with ECG of 11-JUL-2019 23:29, (unconfirmed) Premature ventricular complexes are no longer Present Confirmed by Brenton Tabares ([id number]) on 07/12/2019 5:17:02 PM Referred By: REFERRED SELF Confirmed By:Brenton Tabares
[2019-07-12] MEDS ORDERED: FERROUS SULFATE 325 MG TAB PO SCH (21:00)
--- NOTE | 2019-07-18 00:34 | Discharge Summary ---
Date of Service July 12, 2019 Principal Diagnosis chest pain Discharge Exam General- adult female, NAD Head- atraumatic Eyes- PERRL, EOMI, anicteric ENT- oropharynx clear Neck- supple, no JVD, no adenopathy, no thyromegaly. Lungs- CTA b/l no R/R/W. Heart- regular rhythm; no murmur, no gallop, no rub appreciated Abdomen- normal bowel sounds, soft, She does have a mild pressure sensation with palpation over the xiphoid process, this is close to the same location that she had pain earlier. 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 Skin- warm & dry Discharge Data Allergies Allergy/AdvReac Type Severity Reaction Status Date / Time formoterol Allergy Severe tongue Verified 07/11/19 15:47 swells mometasone furoate Allergy Severe tongue Verified 07/11/19 15:47 swells ketorolac Allergy Intermediate ITCHING Verified 07/11/19 15:47 adhesive tape Allergy Mild Redness of Verified 07/11/19 15:47 Skin Consultations 07/12/19 00:57 ED Decision to Admit Stat 07/12/19 08:24 Consult Cardiology Routine Ordered Studies 07/12/19 02:18 CT angio chest PE protocol Urgent Hospital Course (1) Substernal chest pain: Obs tele trend trops CTA chest - no PE, no dissection. I suspect the source of pain is GI or musculoskeletal Consideration may be given to side effect from Viberza to which patient had taken first dose prior to symptoms. Patient has had cholecystectomy which can put her at risk for sphincter of Oddi spasm. Her lipase was normal. I am unsure if there is any connection, but thought it worth mentioning as the timing is suspicious. She had an echocardiogram in 2019 thus I did not feel need to repeat. Appreciate cardio input (in bold) The patient presented last evening with severe stabbing substernal chest pain that radiated into her back. She had associated nausea, diaphoresis, and some shortness of breath with the discomfort. The episode lasted about 2-2.5 hours in duration. Symptoms resolved with nitro and pain medication. Her cardiac enzymes have been negative, and ECGs show no acute ischemic changes. She reportedly had a normal cardiac catheterization in 2015 and also underwent a dobutamine stress echo in December 2018 that was negative for ischemia. Given her previously negative ischemic evaluation and normal cardiac work-up this admission, her symptoms do not appear to be cardiac in nature. No additional cardiovascular testing/intervention recommended at this time. Interestingly, she did start a new medication last evening called Viberzi for treatment of her IBS, and perhaps her symptoms last evening were related to the new med. Would have her refrain from taking the medication at this time, and perhaps she can be started on a different agent for her IBS. Patient discussed with Dr. Phillips. ADDENDUM (Dr. Phillips): Patient seen, interviewed, and examined. Agree with above assessment and plan as outlined by Brittany Lin PA-C. 64-year-old woman with normal cardiac catheterization 4 years ago and negative dobutamine stress echo 6 months ago who presented with severe sharp epigastric/lower anterior thoracic symptoms but no ischemic ECG changes or troponin elevation. Given the magnitude of her symptoms, would certainly expect ECG changes and/or enzyme elevation if the etiology was cardiac ischemia. At this point, no evidence for cardiac etiology or ongoing myocardial ischemia. Would evaluate for noncardiac cause, high on the list would be gastrointestinal irritation from her newly initiated Viberzi given the strong temporal relationship between taking her first pill and several hours later developing symptoms. Advised her to hold this medication and discuss with GI specialist possible alternative medication regimens. Given the lack of cardiac issues, will sign off. Please recontact if further symptoms or concerns. (2) Chronic diastolic CHF (congestive heart failure): Stable no decompensation. Continue Lasix (3) Eosinophilic asthma: Continue Budesonide She takes Fasenra prn Xopenex nebs (4) DM w/o complication type II, uncontrolled: Metformin held due to IV dye load Will cover with sliding scale. (5) Irritable bowel syndrome with diarrhea: Had taken first dose of Viberzi on evening of 07/11. I will hold for now,. (6) GERD (gastroesophageal reflux disease): Continue Protonix and Pepcid. Total Time Total Time Spent Total Time Spent (In Minutes): 32 Total Time Includes: Examination of the Patient, Discharge Planning and Medication Reconciliation Discharge Plan Discharge Items Patient Disposition: Home - Self-Care Reason For Visit: CHEST PAIN Discharge Diagnosis: Chest pain Activity: Resume your previous activity Non-emergency contact: Primary Care Provider Call non-emergency contact if: you have any medication questions Follow-up/Referrals: Rosalva Lane DO [Primary Care Provider] - Diet: Regular Addtl Attending Provider Instructions: You have been hospitalized to rule out cardiac causes of your chest pain.. During your stay at [facility], we have made an effort to correct the problem that brought you to the hospital while keeping you as comfortable as possible.Your discharge instructions will include directions for any medications you should take after leaving the hospital. Please make sure you see your Primary Care Provider as part of your follow up plan. Resume home medications except for Viberzi. Will hold Viberzi for now. Will schedule a GI appointment. Pending Studies at Discharge: No Stand-Alone Forms: Call Back Authorization, My [facility], Smoking Cessation Medications and DC Order Prescriptions: Continued metformin 500 mg tablet extended release 24 hr 500 mg PO BID Qty: 60 RF: 5 carvedilol [Coreg] 3.125 mg tablet 3.125 mg PO BID Qty: 180 RF: 1 potassium chloride [Klor-Con M20] 20 mEq tablet,ER particles/crystals See Patient Comments .ROUTE .COMPLEX Qty: 210 RF: 3 alprazolam 0.25 mg tablet 0.25 mg PO BID PRN (Reason: anxiety) Qty: 30 RF: 1 losartan 25 mg tablet 25 mg PO QAM Qty: 90 RF: 1 azelastine 137 mcg (0.1 %) aerosol,spray See Rx Instructions .ROUTE .COMPLEX Qty: 30 RF: 11 sertraline 50 mg tablet 50 mg PO QAM Qty: 90 RF: 3 epinephrine 0.3 mg/0.3 mL auto-injector 0.3 ml IM .COMPLEX RF: 0 benzonatate 200 mg capsule 200 mg PO TID PRN (Reason: Cough) RF: 0 prednisone 10 mg tablets,dose pack 10 mg PO UD PRN (Reason: RESQUE KIT) RF: 0 ipratropium bromide 0.02 % solution 0.5 mg Inhalation QID PRN (Reason: Shortness Of Breath Or Wheezing) Qty: 2.5 RF: 0 furosemide 40 mg tablet 40 mg PO BID Qty: 180 RF: 3 cyclobenzaprine 5 mg tablet 5 mg PO TID PRN (Reason: muscle spasm) Qty: 10 RF: 0 (DME) walker misc See Dose Instructions .ROUTE .MEDSUPPLY Qty: 1 RF: 0 levalbuterol HCl 1.25 mg/3 mL solution for nebulization 1.25 mg inhalation UD PRN (Reason: Shortness Of Breath Or Wheezing) RF: 0 budesonide 0.5 mg/2 mL suspension for nebulization 2 ml Inhalation BID Qty: 120 RF: 0 atorvastatin 20 mg tablet 20 mg PO QAM RF: 0 cholecalciferol (vitamin D3) 4,000 unit capsule 4,000 units PO QAM RF: 0 famotidine 40 mg tablet 40 mg PO QAM RF: 0 ferrous sulfate 325 mg (65 mg iron) tablet 325 mg PO HS RF: 0 pantoprazole 40 mg tablet,delayed release (DR/EC) 40 mg/kg PO QAM RF: 0 No Action rifaximin 550 mg tablet 550 mg PO TID 14 Days Qty: 42 RF: 0 Fasenra Pen 30 mg/mL auto-injector 30 mg SQ .COMPLEX Qty: 1 RF: 11 Discharge Orders: Discharge Order (Routine); Ordered 07/12/19 Ordered By: Gilbert Kan Admission Data Admit Date/Time: 07/12/19 01:42 Attending Provider: Gilbert Kan Admit Provider: Juan J Mishra Primary Care Provider: Rosalva Lane Other Providers: Juan J Mishra ; Brenton Tabares Other Interventions: Discharge Summary Assessment (RN) Last Done: 07/12/19 14:21 DC Date/Time DO NOT enter until pt leaves facility: 07/12/19 14:49
== END 2019-07-12 14:49 | disposition home or self-care (01) ==
LOC: ED 23:25 → 2N 23:25 → SUATTDRO 07-12 01:42 → 2N 07-12 02:01